=== PATIENT | male | born 1970 | race Caucasian/White ===

== ENCOUNTER 2017-09-05 13:40 | Inpatient (IN) ==
[2017-09-05] MEDS ORDERED: IOPAMIDOL 100 ML BOTTLE IV ONE (13:41)
[2017-09-05] MEDS ORDERED: 0.9 % SODIUM CHLORIDE 1,000 ML IV SCH (14:15)
[2017-09-05] MEDS ORDERED: VANCOMYCIN PER PHARMACY IV ONE (14:26)
[2017-09-05 14:59] LABS: Basophils # (Auto) 0 K/mcL (0.0-0.3); Basophils % (Auto) 0.2 % (0.0-2.0); Eosinophils # (Auto) 0.1 K/mcL (0.0-0.7); Eosinophils % (Auto) 0.3 % (0.0-7.0); Granulocytes % (Auto) 89.8 % (38.0-78.0); Lymphocytes % (Auto) 4.3 % (15.5-49.0); Mean Cell Volume 90.6 fL (80.0-100.0); Mean Corpuscular HGB Conc 33.1 g/dL (31.0-36.0); Mean Corpuscular Hemoglobin 29.9 pg (26.0-34.0); Monocytes # (Auto) 1.2 K/mcL (0.1-0.9); Monocytes % (Auto) 5.4 % (1.0-12.0); Platelet Count 388 K/mcL (140-440); Red Cell Distribution Width 14.4 % (11.5-14.5)
[2017-09-05] MEDS ORDERED: VANCOMYCIN 1,500 MG in 0.9 % SODIUM CHLORIDE 500 ML IV ONE (15:00)
[2017-09-05 15:17] LABS: ALT/SGPT 18 U/l (0-40); Albumin 3.4 gm/dL (3.2-5.2); Albumin/Globulin Ratio 0.8 (1.0-2.3); Alkaline Phosphatase 76 U/L (39-117); Blood Urea Nitrogen 15 mg/dl (6-20)
[2017-09-05] MEDS ORDERED: INSULIN REGULAR, HUMAN 1 UNIT/0.01 ML UNIT SQ ONE (15:45)
--- NOTE | 2017-09-05 15:49 | Emergency Department Note ---
Skin/Abscess/FB HPI - General Chief complaint: Skin/Abscess/Foreign Body Stated complaint: Diabetic foot ulcer Time Seen by Provider: 09/05/17 13:44 Source: patient Mode of arrival: wheelchair - History of Present Illness HPI Narrative: 47-year-old male presents with decubitus ulcer infection to the left foot. He was sent over from Dr. Misbah Duncan's office. States he has been dealing with this foot wound for about 6 months and has been seen Dr. Duncan. However the last 1-2 months it became infected. He has been on outpatient oral antibiotic therapy without improvement. Over the last week or so he has had chills. Unknown fever as he is not taking his temperature. States Dr. Duncan was gone for a little bit so he was seen wound care and at that time it started getting worse. States he did just have the decubitus ulcer to the palmar surface of his foot but then over the last couple weeks the lateral surface started getting red, hot, and very swollen. It then started draining and they opened it up. States that she is getting worse, not better. Saw Dr. Duncan earlier today and he sent him to the ER for further evaluation. States the pain is present but is manageable. Does not have any pain anywhere else. No recent cough or cold symptoms. Associated symptoms: Reports: chills. Denies: nausea, vomiting, cough, shortness of breath - Related Data Home Medications Medication Instructions Recorded Confirmed aspirin 81 mg tablet,delayed 81 mg PO QDAY tab 01/09/15 07/21/17 release blood-glucose meter kit See Dose Instructions .ROUTE 01/09/15 07/21/17 .MEDSUPPLY multivitamin tablet 1 tab PO QDAY tab 01/09/15 07/21/17 isosorbide mononitrate ER 30 mg 30 mg PO QDAY 90 Days #90 tab 02/02/16 07/21/17 tablet,extended release 24 hr nitroglycerin 0.4 mg sublingual 0.4 mg SUBLINGUAL Q5-15M PRN 02/02/16 07/21/17 tablet Doxycycline Hyclate [Vibramycin] 100 mg PO BID 09/05/17 09/05/17 Previous Rx's Medication Instructions Recorded pen needle, diabetic 31 gauge x See Dose Instructions .ROUTE 04/22/1510/05" .MEDSUPPLY #100 each lancets 30 gauge See Dose Instructions .ROUTE 09/15/15 .MEDSUPPLY #300 each blood sugar diagnostic strips See Label Instructions .ROUTE 12/15/15 .COMPLEX #300 each atorvastatin 80 mg tablet 80 mg PO QDAY #90 tab 08/27/16 diabetic shoes #2 each 08/27/16 furosemide 20 mg tablet 20 mg PO QDAY #90 tab 08/27/16 metformin ER 500 mg 24 hr 1,000 mg PO .COMPLEX #270 tab 08/27/16 tablet,extended release metoprolol succinate ER 100 mg 100 mg PO BID #180 tab 08/27/16 tablet,extended release 24 hr spironolactone 25 mg tablet 25 mg PO QDAY #90 tab 08/27/16 valsartan 160 mg tablet 160 mg PO QDAY #90 tab 08/27/16 insulin glargine (U-300) 300 180 unit SUB-Q QDAY 90 Days #54 ml 12/03/16 unit/mL (1.5 mL) subcutaneous pen Allergies Allergy/AdvReac Type Severity Reaction Status Date / Time No Known Drug Allergies Allergy Verified 09/05/17 13:47 Review of Systems All systems ED: reviewed and negative except as stated. Past Medical History - Past Medical History [facility] Narrative: Medical History (Last Reviewed 07/21/17 @ 14:17 by Jas Stein PA-C) Metabolic Syndrome X (Chronic) Ventricular fibrillation (Chronic) Cardiac arrest (Chronic) Weight gain (Chronic 05/17/13) Tobacco abuse (Chronic 01/26/13) Acute thrombus of left ventricle (Resolved) Pleural effusion (Resolved) Peripheral neuropathy (Chronic) Obesity (Chronic) Mitral regurgitation (Chronic) Metabolic syndrome (Chronic) Hypertension (Chronic) Hyperlipidemia (Chronic 02/11/13) Leg edema (Chronic 05/17/13) Diabetes mellitus (Chronic) Dental caries (Chronic 01/23/13) Congestive heart failure (CHF) (Resolved 04/08/14) Cardiomyopathy (Chronic) Cardiomegaly (Chronic) Alcohol abuse (Chronic) Cardiac arrest with ventricular fibrillation (Chronic 01/25/16) Past Surgical History (Last Reviewed 07/21/17 @ 14:17 by Jas Stein PA-C) History of appendectomy (Resolved) S/P foot surgery, right (Chronic) Cardiac defibrillator in place (Resolved) History of left heart catheterization (Resolved) Surgical history ED: Reports: appendectomy, other (Foot surgery, defibrillator, cardiac catheterization) - Social History smoking status: Never smoker Alcohol use: Reports: Rarely Drug use: Reports: none Physical Exam Limitations: no limitations General appearance: alert, in no apparent distress Head: atraumatic, normocephalic, normal inspection Eye: Present: normal appearance. Absent: conjunctival injection ENT: mucous membranes moist Chest: Present: normal inspection, symmetric chest wall rise Respiratory: Present: normal lung sounds bilaterally. Absent: respiratory distress, wheezes, accessory muscle use Cardiovascular: Present: regular rate, normal heart sounds Extremities: Present: normal capillary refill, other (Diffuse edema to the left foot). Absent: normal inspection (The left foot arrived with bandage and intact. The bandage was removed. He does have a yellowish thin purulent drainage draining from the lateral surface midfoot. There is a 8 cm area of redness that is warm. It is circumferential. The lateral surface of the left foot has a stage III decubitus ulcer in the palmar surface of the foot is stage II. There is about a 1 cm circumferential area of dark tissue that appears to be necrosis.) Neurological: Present: alert, oriented X3, normal gait Psychiatric: Present: normal affect, normal mood Skin: Present: warm, dry, erythema (The see extremity assessment regarding left foot.) Course Course Narrative: Patient does have an elevated white blood cell count of 22 with a shift. His glucose is also 375. Due to failed outpatient antibiotic therapy and the current state of the wound infection failure greatly benefit from inpatient hospitalization for wound care and IV antibiotic therapy. I did speak with Dr. Duncan who will consult on the patient. At 1540 also spoke with the hospitalist, Dr. Carrera who agrees to admit the patient. Patient updated and is agreeable. Vital Signs Temperature 98.2 F 09/05/17 13:41 Pulse Rate 93 H 09/05/17 13:41 Respiratory Rate 16 09/05/17 13:41 Blood Pressure 144/90 09/05/17 13:41 Pulse Oximetry (%) 97 09/05/17 13:41 Temperature 98.2 F 09/05/17 13:41 Pulse Rate 92 H 09/05/17 15:46 Respiratory Rate 16 09/05/17 13:41 Blood Pressure 153/88 09/05/17 15:46 Pulse Oximetry (%) 96 09/05/17 15:46 Skin/Abscess/Foreign Body - Lab Data Lab results reviewed: Yes I reviewed the patient's lab results. Result diagrams: 09/05/17 14:20 09/05/17 14:20 Lab Results 09/05/17 09/05/17 09/05/17 Range/Units 14:20 14:20 14:20 WBC 22.4 H (4.5-11.0) K/mcL RBC 4.60 (4.50-5.90) M/mcL Hgb 13.8 (13.5-16.5) g/dL Hct 41.7 (41.0-55.0) % MCV 90.6 (80.0-100.0) fL MCH 29.9 (26.0-34.0) pg MCHC 33.1 (31.0-36.0) g/dL RDW 14.4 (11.5-14.5) % Plt Count 388 (140-440) K/mcL MPV 7.3 L (7.4-10.4) fL Gran % 89.8 H (38.0-78.0) % Lymph % (Auto) 4.3 L (15.5-49.0) % Baxter % (Auto) 5.4 (1.0-12.0) % Eos % (Auto) 0.3 (0.0-7.0) % Baso % (Auto) 0.2 (0.0-2.0) % Gran # 20.1 H (1.8-8.0) K/mcL Lymph # (Auto) 1.0 L (1.5-4.8) K/mcL Baxter # (Auto) 1.2 H (0.1-0.9) K/mcL Eos # (Auto) 0.1 (0.0-0.7) K/mcL Baso # (Auto) 0 (0.0-0.3) K/mcL VBG Lactic Acid 1.8 (0.5-2.2) mmol/L Sodium 129 L (133-145) mmol/L Potassium 4.2 (3.3-5.1) mmol/L Chloride 90 L (96-108) mmol/L Carbon Dioxide 25 (22-30) mmol/L Anion Gap 14.0 (8-16) BUN 15 (6-20) mg/dl Creatinine 1.0 (0.7-1.2) mg/dl GFR Calculation 88 Glucose 375 H (70-105) mg/dL Calcium 9.5 (8.6-10.4) mg/dl Total Bilirubin 0.6 (0.0-1.0) mg/dL AST 12 (0-37) U/l ALT 18 (0-40) U/l Alkaline Phosphatase 76 (39-117) U/L Total Protein 7.8 (5.9-8.4) gm/dL Albumin 3.4 (3.2-5.2) gm/dL Globulin 4.4 H (2.2-3.7) gm/dL Albumin/Globulin Ratio 0.8 L (1.0-2.3) - Radiology Data Radiology results reviewed: Yes I reviewed the patient's radiology results. Disposition Pt seen by B[employer]OM [employer]OP DRIVER/PA only: No Clinical Impression: Decubitus ulcer, infected, Cellulitis of left foot, Diabetes Disposition: Xfer As Inpt ([facility]) Condition: Fair Referrals: Meir Elam MD [Primary Care Provider] - Misbah Duncan DPM [Physician] - Time of Disposition: 15:50
--- NOTE | 2017-09-05 16:23 | Internal Med History&Physical ---
Medical - H&P: HPI Patient information: Note initiated : 09/05/17 at 4:14 pm Service Date, if different from initiated Date: [] Patient: Faustino Muir 47 y/o M admitted on for Diabetic foot ulcer. Chief Complaint: [] History of present illness: Mr. Muir is a 47 year old Male with history of diabetes, hypertension hyperlipidemia presents to the emergency room today after being evaluated by the mortgage processing clerk who sent the patient here for evaluation for infected diabetic wound. According to the patient he developed an ulcer on the left foot approximately 5-6 weeks ago, the patient has been under the care of Dr. Duncan since then. He was treated with doxycycline once and the infection got better. The ulcer was debrided by Dr. Meyer a couple weeks ago. The patient since has developed swelling erythema and redness in the left foot. He was seen by Dr. Duncan last Tuesday and it was noted that he possibly had an abscess. He had an I&D done in the office. He was given some antibiotics. The patient was again seen today and it was noted that his infection was getting worse he was therefore sent to the emergency room for further evaluation. The patient admits to have some pain in the left foot throbbing nonradiating worse with activity. It is better with rest. The patient also notes that he may have had some fever and chills last week but none present. Besides this the patient has no other complaints. A 10 point ROS was done and is negative except above. In the emergency room the patient is afebrile, he has stable vital signs. The patient has leukocytosis with a WBC count of 22. Left lites show sodium of 129 blood glucose is also elevated at 375. The patient is therefore being admitted to the hospital for further management as he has possible sepsis, Dr Munoz will be planning surgery in AM, CT pending. All systems: reviewed and no additional remarkable complaints except as stated ( As per HPI) Medical - H&P: PM Medical history: Medical History (Last Reviewed 07/21/17 @ 14:17 by Jas Stein PA-C) Metabolic Syndrome X (Chronic) Ventricular fibrillation (Chronic) Cardiac arrest (Chronic) Weight gain (Chronic 05/17/13) Tobacco abuse (Chronic 01/26/13) Acute thrombus of left ventricle (Resolved) Pleural effusion (Resolved) Peripheral neuropathy (Chronic) Obesity (Chronic) Mitral regurgitation (Chronic) Metabolic syndrome (Chronic) Hypertension (Chronic) Hyperlipidemia (Chronic 02/11/13) Leg edema (Chronic 05/17/13) Diabetes mellitus (Chronic) Dental caries (Chronic 01/23/13) Congestive heart failure (CHF) (Resolved 04/08/14) Cardiomyopathy (Chronic) Cardiomegaly (Chronic) Alcohol abuse (Chronic) Cardiac arrest with ventricular fibrillation (Chronic 01/25/16) Surgical history: Past Surgical History (Last Reviewed 07/21/17 @ 14:17 by Jas Stein PA-C) History of appendectomy (Resolved) S/P foot surgery, right (Chronic) Cardiac defibrillator in place (Resolved) History of left heart catheterization (Resolved) Pertinent family history: Family History (Last Reviewed 07/21/17 @ 14:17 by Jas Stein PA-C) Father Type 2 diabetes mellitus Arthritis Hypertension Mother Obesity Medical - H&P: Meds Home Medications Medication Instructions Recorded Confirmed Type aspirin 81 mg tablet,delayed 81 mg PO QDAY tab 01/09/15 07/21/17 History release blood-glucose meter kit See Dose Instructions .ROUTE 01/09/15 07/21/17 History .MEDSUPPLY multivitamin tablet 1 tab PO QDAY tab 01/09/15 07/21/17 History pen needle, diabetic 31 gauge x See Dose Instructions .ROUTE 04/22/15 07/21/17 Rx /16" .MEDSUPPLY #100 each lancets 30 gauge See Dose Instructions .ROUTE 09/15/15 07/21/17 Rx .MEDSUPPLY #300 each blood sugar diagnostic strips See Label Instructions .ROUTE 12/15/15 07/21/17 Rx .COMPLEX #300 each isosorbide mononitrate ER 30 mg 30 mg PO QDAY 90 Days #90 tab 02/02/16 07/21/17 History tablet,extended release 24 hr nitroglycerin 0.4 mg sublingual 0.4 mg SUBLINGUAL Q5-15M PRN 02/02/16 07/21/17 History tablet atorvastatin 80 mg tablet 80 mg PO QDAY #90 tab 08/27/16 07/21/17 Rx diabetic shoes #2 each 08/27/16 07/21/17 Rx furosemide 20 mg tablet 20 mg PO QDAY #90 tab 08/27/16 07/21/17 Rx metformin ER 500 mg 24 hr 1,000 mg PO .COMPLEX #270 tab 08/27/16 07/21/17 Rx tablet,extended release metoprolol succinate ER 100 mg 100 mg PO BID #180 tab 08/27/16 07/21/17 Rx tablet,extended release 24 hr spironolactone 25 mg tablet 25 mg PO QDAY #90 tab 08/27/16 07/21/17 Rx valsartan 160 mg tablet 160 mg PO QDAY #90 tab 08/27/16 07/21/17 Rx insulin glargine (U-300) 300 180 unit SUB-Q QDAY 90 Days #54 ml 12/03/16 Rx unit/mL (1.5 mL) subcutaneous pen Doxycycline Hyclate [Vibramycin] 100 mg PO BID 09/05/17 09/05/17 History Allergies Allergy/AdvReac Type Severity Reaction Status Date / Time No Known Drug Allergies Allergy Verified 09/05/17 13:47 Medical - H&P: Exam - Constitutional Vitals: Temp Pulse Resp BP Pulse Ox 98.2 F 92 H 16 153/88 96 09/05/17 13:41 09/05/17 15:46 09/05/17 13:41 09/05/17 15:46 09/05/17 15:46 Exam: GENERAL: The patient is a well-developed, well-nourished in no apparent distress. Is alert and oriented x3. VITAL SIGNS: Reviewed and as noted elsewhere. HEENT: Head is normocephalic and atraumatic. Extraocular muscles are intact. Pupils are equal, round, and reactive to light. Nares appeared normal. Mouth appears any without lesions. Mucous membranes are moist. NECK: Normal to inspection, Supple, No lymphadenopathy or thyromegaly. LUNGS: Air entry equal on both sides, no wheezing, crackles or rhonchi noted. No accessory muscles of respiration HEART: Regular rate and rhythm normal, S1 and S2 heard, no Gallop, S3 or Rub Noted, No Gross murmur heard. ABDOMEN: Soft, nontender, and nondistended. Positive bowel sounds. No hepatosplenomegaly was noted. EXTREMITIES: No cyanosis, clubbing, rash, lesions or edema. Left foot: Patient has one by one ulcer on the left foot at its base, the patient however has significant erythema and edema on the left foot there is a irregular ulcer approximately 5 into 6 cm in size on the ventral aspect of the left foot. Skin surrounding the ulcer has few areas of necrosis, but is active pus oozing from the ulcer. The erythema extends up to the ankle. NEUROLOGIC: Cranial nerves II through XII are grossly intact. Motor and Sensory System Grossly Intact PSYCHIATRIC: Normal affect, Normal Mood. Appropriate Behavior. SKIN: No ulceration or wounds noted, No jaundice, No rash noted. Medical - H&P: Reslt - Labs CBC & Chem 7: 09/05/17 14:20 09/05/17 14:20 Labs: Short CBC 09/05/17 Range/Units 14:20 WBC 22.4 H (4.5-11.0) K/mcL Hgb 13.8 (13.5-16.5) g/dL Hct 41.7 (41.0-55.0) % Plt Count 388 (140-440) K/mcL BMP 09/05/17 14:20 Sodium 129 L Potassium 4.2 Chloride 90 L Carbon Dioxide 25 BUN 15 Creatinine 1.0 Glucose 375 H Calcium 9.5 Liver Function 09/05/17 Range/Units 14:20 Total Bilirubin 0.6 (0.0-1.0) mg/dL AST 12 (0-37) U/l ALT 18 (0-40) U/l Alkaline Phosphatase 76 (39-117) U/L Albumin 3.4 (3.2-5.2) gm/dL Medical - H&P: A/P - Narrative A/P Narrative: A/P Sepsis Necrotizing Diabetic Foot infection with Cellutlitis Possible osteo-myelitis Diabetes uncontrolled Hypertension Hyperlipidemia History of cardiac arrest status post AICD placement Coronary artery disease Pseudohyponatremia [low sodium secondary to glucose which is elevated] [facility] IV antibiotics with vancomycin and Zosyn for now. Get blood cultures Await CT scan of the left foot ordered in the emergency room. N.p.o. midnight for possible procedure tomorrow. Plan of care reviewed with Dr. Duncan Insulin to control blood sugar. Lantus 10 units at bedtime started low-dose sliding scale insulin. Resume home medications once verified, DVT prophylaxis with heparin subcu Carb consistent diet Patient is full code I reviewed the AICD made by [employer] online to see if it is compatible with MRI it can be compatible with a 1.5 Ellen MRI but not with the MRI we have in this facility which is a 3 Ellen machine. Social History - Social History household members: spouse housing: house lives independently: Yes marital status: education level: high school service: No occupational status: employed - Tobacco smoking status: Never smoker - Alcohol alcohol intake frequency: a few times a week - Substance use substance use type: does not use
--- NOTE | 2017-09-05 16:49 | Cat Scan Report ---
CLINICAL INFORMATION: Infection and pain COMPARISON: Plain films from 08/19/2017 TECHNIQUE: 0.625 mm helical slices were obtained through the left foot and ankle. Following reconstruction, 2.5 mm sagittal, coronal and axial reformatted were processed and reviewed at soft tissue and bone windows. FINDINGS: A nonunified old oblique fracture through the proximal fifth metatarsal diaphysis is again noted. A 16 mm region of irregular osseous resorption at the fracture site is likely a focus of osteomyelitis. There is moderate healing callus is partially bridging the bone fragments. There is displacement of the distal fragment 5 mm lateral and superior with respect to the proximal fragment. Surrounding the fracture, there is moderate local fasciitis and cellulitis with overlying lateral cutaneous ulcer. Small amount of gas is seen in the subdermal soft tissues - either atmospheric related to gas producing infection. Severe hallux valgus metatarsus abductus and also hammertoe deformities in the first through fifth digits seen as before. There are cortical step-off in the distal aspect of the second and third middle phalanges which are likely subtle hairline fractures. Moderate effusion is present within the ankle with a mortise small spur projecting from the dorsal cortex of the talar neck which may predispose to impingement on dorsiflexion of the ankle. There is moderate inflammatory changes in the deep muscle and fascial planes in the ankle periarticular region inferiorly and medially. Tendons and sheaths traversing this region appear to be secondarily inflamed. IMPRESSION: 1. Nonunified old oblique displaced fracture the proximal fifth metatarsal diaphysis. A 16 mm irregular region of resorption about the fracture line is suspicious for complicating osteomyelitis. There is moderate inflammation in the adjacent deep fascia with cellulitis. 2. Moderate size effusion in the ankle mortise with evidence of deep fasciitis - measuring the medial periarticular region of the ankle. 3. Severe hallux valgus, metatarsus abductus and hammertoe deformities first through fifth digits. Interpreted and Authenticated by: Uriah Matthews 09/05/17
[2017-09-05] MEDS ORDERED: DEXTROSE 50% 50 ML VIAL IV PRN (17:19)
[2017-09-05] MEDS ORDERED: oxyCODONE HCL 5 MG TABLET PO PRN (17:19)
[2017-09-05] MEDS ORDERED: HYDROmorphone 2 MG/ML VIAL IV PRN (17:19)
[2017-09-05] MEDS ORDERED: DEXTROSE 31 GM ORAL.SUSP PO PRN (17:19)
[2017-09-05] MEDS ORDERED: 0.9 % SODIUM CHLORIDE 1,000 ML IV ONE (17:19)
[2017-09-05] MEDS ORDERED: VANCOMYCIN PER PHARMACY IV SCH (17:19)
[2017-09-05] MEDS ORDERED: ALBUTEROL SULFATE 2.5 MG/3 ML NEBULIZER NEB PRN (17:19)
[2017-09-05] MEDS ORDERED: ACETAMINOPHEN 325 MG TABLET PO PRN (17:19)
[2017-09-05] MEDS ORDERED: ONDANSETRON 4 MG/2 ML VIAL IV PRN (17:19)
[2017-09-05] MEDS: PIPERACILLIN SODIUM/TAZOBACTAM 3.375 GM in DEXTROSE 5% IN WATER 50 ML IV SCH ×2 (17:50→23:50)
[2017-09-05] MEDS: INSULIN LISPRO 1 UNIT/0.01 ML UNIT SQ SCH ×2 (17:58→20:23)
[2017-09-05] MEDS: FAMOTIDINE 20 MG TABLET PO SCH (20:22)
[2017-09-05] MEDS: ATORVASTATIN 20 MG TABLET PO SCH (20:22)
[2017-09-05] MEDS: HEPARIN 5,000 UNIT/ML VIAL SQ SCH (20:22)
[2017-09-05] MEDS: 0.9 % SODIUM CHLORIDE 10 ML SYRINGE IV SCH (20:24)
[2017-09-05] MEDS ORDERED: INSULIN GLARGINE, HUMAN 1 UNIT/0.01 ML SQ SCH ×2 (21:00)
[2017-09-05] MEDS: 0.9 % SODIUM CHLORIDE 1,000 ML IV SCH (22:03)
[2017-09-06] MEDS: VANCOMYCIN 1,500 MG in 0.9 % SODIUM CHLORIDE 500 ML IV SCH ×3 (01:12→20:55)
[2017-09-06] MEDS: 0.9 % SODIUM CHLORIDE 10 ML SYRINGE IV SCH ×3 (05:55→20:52)
[2017-09-06] MEDS: PIPERACILLIN SODIUM/TAZOBACTAM 3.375 GM in DEXTROSE 5% IN WATER 50 ML IV SCH ×4 (05:55→23:16)
[2017-09-06 06:43] LABS: Basophils # (Auto) 0 K/mcL (0.0-0.3); Basophils % (Auto) 0.2 % (0.0-2.0); Eosinophils # (Auto) 0.7 K/mcL (0.0-0.7); Eosinophils % (Auto) 4.3 % (0.0-7.0); Granulocytes % (Auto) 79.6 % (38.0-78.0); Lymphocytes # (Auto) 1.5 K/mcL (1.5-4.8); Lymphocytes % (Auto) 9.3 % (15.5-49.0); Mean Cell Volume 90.1 fL (80.0-100.0); Mean Corpuscular HGB Conc 34.2 g/dL (31.0-36.0); Mean Corpuscular Hemoglobin 30.8 pg (26.0-34.0); Monocytes % (Auto) 6.6 % (1.0-12.0); Platelet Count 318 K/mcL (140-440); RBC 3.83 M/mcL (4.50-5.90); Red Cell Distribution Width 14.5 % (11.5-14.5)
[2017-09-06] MEDS: INSULIN LISPRO 1 UNIT/0.01 ML UNIT SQ SCH ×6 (07:10→23:16)
[2017-09-06 07:32] LABS: ALT/SGPT 16 U/l (0-40); Albumin 2.6 gm/dL (3.2-5.2); Albumin/Globulin Ratio 0.7 (1.0-2.3); Alkaline Phosphatase 68 U/L (39-117); Bilirubin,Direct < 0.2 mg/dL (0.0-0.3); Blood Urea Nitrogen 10 mg/dl (6-20); Gamma Glutamyl Transpeptidase 17 U/L (8-61); Uric Acid 2.5 mg/dL (2.5-8.0)
[2017-09-06] MEDS ORDERED: POTASSIUM CHLORIDE 20 MEQ PACKET PO ONE (07:37)
[2017-09-06] MEDS ORDERED: VALSARTAN 160 MG TABLET PO SCH (09:00)
[2017-09-06] MEDS ORDERED: SPIRONOLACTONE 25 MG TABLET PO SCH (09:00)
[2017-09-06] MEDS: METOPROLOL SUCCINATE 50 MG TAB.XL.24H PO SCH ×2 (09:35→20:51)
[2017-09-06] MEDS: ISOSORBIDE MONONITRATE 30 MG TAB.XL.24H PO SCH (09:35)
[2017-09-06] MEDS: ASPIRIN 81 MG TAB.CHEW PO SCH (09:36)
[2017-09-06] MEDS: HEPARIN 5,000 UNIT/ML VIAL SQ SCH ×2 (09:36→20:51)
[2017-09-06] MEDS: FAMOTIDINE 20 MG TABLET PO SCH ×2 (09:36→20:51)
--- NOTE | 2017-09-06 10:11 | Orthopedic Consult Note ---
History of Present Illness - [facility] Patient information: Note initiated : 09/06/17 at 9:43 am Service Date, if different from initiated Date: [] Patient: Faustino Muir 47 y/o M admitted on 09/05/17 for I&D and Amputation of 5th Metatarsal. Chief Complaint: [] Consult date: 09/06/17 Consult reason: other (infection of left foot) History of present illness: Patient has has a long standing history of ulcerations and fractures of the left foot. He presented into clinic with an open wound on the bottom of the left foot which probed to bone. The bone also is chronically fractured. He does not have feeling in the foot unless there is abnormally large pressure or pain. He has developed a very red and swollen foot with increasing pain. The redness has persisted despite oral antibiotics. Review of Systems Constitutional: as per [facility] Past History Past medical history: METABOLIC SYNDROME VENTRICULAR FIBRILLATION NEW RESOLVED CARDIAC ARREST 01/23 DUE TO VENTRICULAR FIBRILLATION WEIGHT GAIN TOBACCO ABUSE ACUTE THROMBUS OF LEFT VENTRICLE PLEURAL EFFUSION DR. [facility] SMALL RIGHT OBESITY MITRAL REGURGITATION METABOLIC SYNDROME Past surgical history: Defibrillator Right Foot Surgery Appendectomy Past family history: Cancer No History Diabetes No History Heart Disease No History Hypertension No History Kidney Disease No History Lung Disease No History Stroke No History Thyroid Problems No History Past social history: Current every day smoker - Chewing Tobacco, Smokeless tobacco Medications and Allergies Home Medications Medication Instructions Recorded Confirmed Type aspirin 81 mg tablet,delayed 81 mg PO QDAY tab 01/09/15 09/05/17 History release blood-glucose meter kit See Dose Instructions .ROUTE 01/09/15 09/05/17 History .MEDSUPPLY multivitamin tablet 1 tab PO QDAY tab 01/09/15 09/05/17 History blood sugar diagnostic strips See Label Instructions .ROUTE 12/15/15 09/05/17 Rx .COMPLEX #300 each isosorbide mononitrate ER 30 mg 30 mg PO QDAY 90 Days #90 tab 02/02/16 09/05/17 History tablet,extended release 24 hr nitroglycerin 0.4 mg sublingual 0.4 mg SUBLINGUAL Q5-15M PRN 02/02/16 09/05/17 History tablet atorvastatin 80 mg tablet 80 mg PO QDAY #90 tab 08/27/16 09/05/17 Rx furosemide 20 mg tablet 20 mg PO QDAY #90 tab 08/27/16 09/05/17 Rx metoprolol succinate ER 100 mg 100 mg PO BID #180 tab 08/27/16 09/05/17 Rx tablet,extended release 24 hr spironolactone 25 mg tablet 25 mg PO QDAY #90 tab 08/27/16 09/05/17 Rx valsartan 160 mg tablet 160 mg PO QDAY #90 tab 08/27/16 09/05/17 Rx Doxycycline Hyclate [Vibramycin] 100 mg PO BID 09/05/17 09/05/17 History Insulin Glargine,Hum.rec.anlog 180 unit SUB-Q DAILY 09/05/17 09/05/17 History [Touyocasta Solostar] Lancets [Advanced Travel Lancets] 0 each .ROUTE .MEDSUPPLY 09/05/17 09/05/17 History Pen Needle, Diabetic [Bd 0 dose .ROUTE .MEDSUPPLY 09/05/17 09/05/17 History Ultra-Fine Pen Needle] diabetic shoes 1 each MISC DAILY 09/05/17 09/05/17 History metFORMIN HCL [Metformin HCl ER] 1,000 mg PO DAILY 09/05/17 09/05/17 History metFORMIN HCL [Metformin HCl ER] 500 mg PO HS 09/05/17 09/05/17 History Allergies Allergy/AdvReac Type Severity Reaction Status Date / Time No Known Drug Allergies Allergy Verified 09/05/17 13:47 Physical Examination - Ankle & Foot left Foot appearance: other (Integumentary (Hair, Skin) Wound #1 Left, Plantar Foot is an acute Stage 2 Pressure Injury Pressure Ulcer and has received a status of Not Healed. Bone is exposed. No tunneling has been noted. No sinus tract has been noted. There is a copious amount of sero-sanguineous drainage noted which has no odor. The patient reports a wound pain of level 6/10. The wound margin is undefined. Wound bed has 1-25% epithelialization, 1-25% slough, 51-75% pale shah, pink, spongy granulation; no eschar present. The wound is improving. The periwound skin exhibited: Edema, Scarring, Moist, Maceration, Erythema. The temperature of the periwound skin is Warm. Periwound skin presents with s/s of infection. Confirmation Description & Treatment Plan is: Signs & Symptoms Present. Wounds communicate: dorsal and plantar) Assessment and Plan (1) Cellulitis of left foot Status: Acute Priority: High Comment: Removal of osteomyelitis with I&D of left foot of critical importance. Plan is: Amputation of left fifth metatarsal with incision and drainage left foot
[2017-09-06] MEDS: 0.9 % SODIUM CHLORIDE 1,000 ML IV SCH ×2 (10:31→13:33)
[2017-09-06] MEDS ORDERED: POTASSIUM CHLORIDE 40 MEQ in DEXTROSE 5% IN WATER 500 ML IV ONE (10:44)
--- NOTE | 2017-09-06 10:44 | Internal Med Progress Note ---
Medical - PN: Subj Patient information: Note initiated : 09/06/17 at 10:41 am Service Date, if different from initiated Date: [] Patient: Faustino Muir a 47 y/o M admitted on 09/05/17 for I&D and Amputation of 5th Metatarsal. Chief Complaint: [] Interval history: Mr. Muir is a 47 year old Male with history of diabetes, hypertension hyperlipidemia presents to the emergency room today after being evaluated by the petroleum sampler who sent the patient here for evaluation for infected diabetic wound. According to the patient he developed an ulcer on the left foot approximately 5-6 weeks ago, the patient has been under the care of Dr. Duncan since then. He was treated with doxycycline once and the infection got better. The ulcer was debrided by Dr. Meyer a couple weeks ago. The patient since has developed swelling erythema and redness in the left foot. He was seen by Dr. Duncan last Tuesday and it was noted that he possibly had an abscess. He had an I&D done in the office. He was given some antibiotics. The patient was again seen today and it was noted that his infection was getting worse he was therefore sent to the emergency room for further evaluation. The patient admits to have some pain in the left foot throbbing nonradiating worse with activity. It is better with rest. The patient also notes that he may have had some fever and chills last week but none present. Besides this the patient has no other complaints. A 10 point ROS was done and is negative except above. In the emergency room the patient is afebrile, he has stable vital signs. The patient has leukocytosis with a WBC count of 22. Left lites show sodium of 129 blood glucose is also elevated at 375. The patient is therefore being admitted to the hospital for further management as he has possible sepsis, Dr Munoz will be planning surgery in AM, CT pending. 09/06 She is seen and examined no acute overnight events, glucose values now well controlled, patient has no acute pain. Blood cultures came back positive as gram-positive cocci in pairs and chains. Sensitivity pending. Patient numbers with no antibiotics WBC trending down. Dr. Duncan plans to take the patient to the OR this afternoon. Pertinent ROS: Denies headache, dizziness Denies chest pain, palpitations Denies cough or shortness of breath Denies abdominal pain, nausea or vomiting. - Constitutional Vitals: Vital Signs Temp Pulse Resp BP Pulse Ox 98.3 F 84 16 155/74 95 09/06/17 07:13 09/06/17 04:00 09/06/17 07:13 09/06/17 07:13 09/06/17 07:13 Period Temp Pulse Resp BP Sys/Ramírez Pulse Ox Last 24 Hr 98.1 F-100.1 F 80-93 16-20 124-160/74-93 94-98 Intake and Output 09/05/17 09/06/17 09/06/17 21:59 05:59 13:59 Intake Total 1350 / 1350 750 / 750 Output Total 1650 / 1650 1050 / 1050 Balance 1350 / 1350 -900 / -900 -1050 / -1050 Weight 247 lb 8 oz Intake & Output: Intake & Output 09/05/17 09/06/17 09/06/17 21:59 05:59 13:59 Intake Total 1350 / 1350 750 / 750 Output Total 1650 / 1650 1050 / 1050 Balance 1350 / 1350 -900 / -900 -1050 / -1050 Weight 247 lb 8 oz Intake: IV 550 / 550 550 / 550 Zosyn 3.375 gm In Dextrose 5% 50 / 50 50 / 50 in Water 50 ml @ 100 mls/hr IV Q6H [facility] Rx#:[id number] Vancomycin 1,500 mg In Sodium 500 / 500 500 / 500 Chloride 0.9% 500 ml @ 333.3 mls/hr IV Q12H [facility]ARY Rx#: [id number] Oral 800 / 800 200 / 200 Output: Void Amount 1650 / 1650 1050 / 1050 Exam: Constitutional; Afebrile, cooperative, alert, not in distress. Eyes- No icterus, , No periorbital swelling Ears- Ext ear normal, hearing normal to conversation. Neck- Midline trachea, supple Respiratory system: Air Entry equal on both sides, No crackles or wheezing, no rhonchi. CVS- Rate rhythm regular, S1,S2 heard, no gallop, no rub. Abdomen- Soft nontender abdomen, no organomegaly, no tenderness, no guarding or rigidity, DIRECTOR PROPERTY- AOOx3, moving all extremities, no gross focal deficit noted. Medical - PN: Obj Da - Labs CBC & Chem 7: 09/06/17 04:14 09/06/17 04:14 Labs: Abnormal Lab Results 09/06/17 09/06/17 09/06/17 04:14 04:14 04:14 WBC 15.9 H RBC 3.83 L Hgb 11.8 L Hct 34.5 L MPV 7.2 L Gran % 79.6 H Lymph % (Auto) 9.3 L Gran # 12.6 H Lymph # (Auto) Mcnairy # (Auto) 1.0 H PT 15.3 H INR 1.2 H Sodium Chloride Glucose Lactate Dehydrogenase 285 H Albumin 2.6 L Globulin Albumin/Globulin Ratio 0.7 L 09/05/17 09/05/17 14:20 14:20 WBC 22.4 H RBC Hgb Hct MPV 7.3 L Gran % 89.8 H Lymph % (Auto) 4.3 L Gran # 20.1 H Lymph # (Auto) 1.0 L Mcnairy # (Auto) 1.2 H PT INR Sodium 129 L Chloride 90 L Glucose 375 H Lactate Dehydrogenase Albumin Globulin 4.4 H Albumin/Globulin Ratio 0.8 L Meds: Medications Acetaminophen (Tylenol) 650 mg PO Q6HP PRN PRN Reason: PAIN/FEVER > 101 Albuterol Sulfate (Ventolin) 2.5 mg NEB Q2HP PRN PRN Reason: Shortness Of Breath Aspirin (Aspirin) 81 mg PO DAILY [facility] Last Admin: 09/06/17 09:36 Dose: Not Given Atorvastatin Calcium (Lipitor) 80 mg PO HS [facility] Last Admin: 09/05/17 20:22 Dose: 80 mg Dextrose (Dextrose 50%) 0 ml IV UD PRN PRN Reason: Hypoglycemia Diagnostic Test (Pha) (Accu-Chek) 1 each FS ACHS [facility] Last Admin: 09/06/17 10:31 Dose: 1 each Famotidine (Pepcid) 20 mg PO BID [facility] Last Admin: 09/06/17 09:36 Dose: Not Given Glucose (Insta-Glucose) 15 gm PO PRN PRN PRN Reason: Hypoglycemia Heparin Sodium (Porcine) (Heparin) 5,000 unit SQ Q12 [facility] Last Admin: 09/06/17 09:36 Dose: Not Given Hydromorphone HCl (Dilaudid) 0.5 mg IV Q2HP PRN PRN Reason: PAIN LEVEL > 6 Piperacillin Sod/Tazobactam (Sod 3.375 gm/ Dextrose) 50 mls @ 100 mls/hr IV Q6H [facility] Last Admin: 09/06/17 05:55 Dose: 100 mls/hr Sodium Chloride (Sodium Chloride 0.9%) 1,000 mls @ 75 mls/hr IV .[id number] [facility] Stop: 09/07/17 09:18 Last Admin: 09/06/17 10:31 Dose: Not Given Vancomycin HCl 1,500 mg/ (Sodium Chloride) 500 mls @ 333.3 mls/hr IV Q12H [facility] Last Admin: 09/06/17 09:54 Dose: 250 mls/hr Insulin Glargine (Lantus) 50 unit SQ HS [facility] Last Admin: 09/05/17 20:23 Dose: 50 unit Insulin Human Lispro (Humalog) 0 unit SQ ACHS [facility] PRN Reason: Protocol Last Admin: 09/06/17 10:32 Dose: Not Given Isosorbide Mononitrate (Imdur) 30 mg PO QDAY [facility] Last Admin: 09/06/17 09:35 Dose: 30 mg Metoprolol Succinate (Toprol Xl) 100 mg PO BID [facility] Last Admin: 09/06/17 09:35 Dose: 100 mg Ondansetron HCl (Zofran) 4 mg IV Q6HP PRN PRN Reason: Nausea And Vomiting Oxycodone HCl (Roxicodone) 5 mg PO Q4HP PRN PRN Reason: PAIN LEVEL 3-6 Sodium Chloride (Saline Flush) 10 ml IV Q8 [facility] Last Admin: 09/06/17 05:55 Dose: Not Given Vancomycin HCl (Vancomycin Per Pharmacy) 1 order IV UD [facility] Medical - PN: A/P - Time Spent With Patient Total time spent is greater than 50% in coordination of care (as documented) at patient's floor/unit and/or counseling patient: - Narrative A/P Narrative: A/P Sepsis Necrotizing Diabetic Foot infection with Cellutlitis Possible osteo-myelitis Diabetes uncontrolled Hypertension Hyperlipidemia History of cardiac arrest status post AICD placement Coronary artery disease Pseudohyponatremia [low sodium secondary to glucose which is elevated] Gram-positive bacteremia Plan Continue IV fluids Continue IV antibiotics with vancomycin and Zosyn for now. Get blood cultures, gram-positive cocci noted and blood cultures. Sensitivity and isolation pending Foot CT reviewed, patient does have ostium mellitus, management per podiatry Blood sugar well controlled. Monitor glucose and adjust insulin once diet is resumed. Patient is on 180 units of Lantus at home. Resume home medications once verified, DVT prophylaxis with heparin subcu N.p.o. diet for surgery t Patient is full code Medical - PN: Qual - VTE Deep Vein Thrombosis/Pulmonary Embolism Present on Admission: No
[2017-09-06] MEDS ORDERED: DEXAMETHASONE 10 MG/ML VIAL ONE (11:50)
[2017-09-06] MEDS ORDERED: PROPOFOL 200 MG/20 ML VIAL IV ONE (11:50)
[2017-09-06] MEDS ORDERED: ePHEDrine 50 MG/ML AMPUL IV ONE (11:50)
[2017-09-06] MEDS ORDERED: MIDAZOLAM 2 MG/2 ML VIAL ONE (11:50)
[2017-09-06] MEDS ORDERED: ONDANSETRON 4 MG/2 ML VIAL ONE (11:50)
[2017-09-06] MEDS ORDERED: fentaNYL 100 MCG/2 ML VIAL IV ONE (11:50)
[2017-09-06] MEDS ORDERED: LIDOCAINE HCL/PF 100 MG/5 ML SYRINGE IV ONE (11:50)
[2017-09-06] MEDS ORDERED: NALOXONE HCL 0.4 MG/ML VIAL IV PRN (12:15)
[2017-09-06] MEDS ORDERED: fentaNYL 100 MCG/2 ML VIAL IV PRN (12:15)
[2017-09-06] MEDS ORDERED: FLUMAZENIL 0.1 MG/ML ML IV PRN (12:15)
[2017-09-06] MEDS ORDERED: IPRATROPIUM/ALBUTEROL 3 ML AMPUL.NEB NEB PRN (12:15)
[2017-09-06] MEDS ORDERED: ONDANSETRON 4 MG/2 ML VIAL IV PRN (12:15)
[2017-09-06] MEDS ORDERED: MEPERIDINE 25 MG/ML SYRINGE IV PRN (12:15)
[2017-09-06] MEDS ORDERED: BENZOCAINE/MENTHOL 1 LOZENGE PO PRN (12:15)
[2017-09-06] MEDS ORDERED: PROMETHAZINE 25 MG/ML VIAL IV PRN (12:15)
[2017-09-06] MEDS ORDERED: diphenhydrAMINE 50 MG/ML VIAL IV PRN (12:15)
[2017-09-06] MEDS ORDERED: LACTATED RINGERS 1,000 ML IV SCH (12:15)
[2017-09-06] MEDS ORDERED: BUPIVACAINE PF 0.5% 30 ML VIAL IJ ONE (12:19)
--- NOTE | 2017-09-06 13:03 | Brief Operative Note ---
Date of procedure: 09/06/17 Pre-op diagnosis: Osteomyelitis left foot fifth metatarsal Post-op diagnosis: same Procedure: Amutation left fifth metatarsal; incision and drainage left foot Grafts/Implants: No Anesthesia: GLMA Complications: none Surgeon: Misbah Duncan Estimated blood loss (cc): 150 Tourniquet Time (Minutes): 0 Specimens Removed/Pathology: other (bone left fifth metatrsal) Condition: stable Disposition: floor
--- NOTE | 2017-09-06 14:02 | Operative Note ---
DATE OF OPERATION: 09/06/2017 PREOPERATIVE DIAGNOSIS: Osteomyelitis, left foot fifth metatarsal. POSTOPERATIVE DIAGNOSIS: Osteomyelitis, left foot fifth metatarsal. PROCEDURE: Amputation left fifth metatarsal with incision and drainage, left foot. IMPLANTS: None. ANESTHESIA: GLMA. COMPLICATIONS: None. ESTIMATED BLOOD LOSS: 150 mL TOURNIQUET TIME: 0 minutes. SPECIMENS: Bone, left fifth metatarsal. CONDITION: Stable. DISPOSITION: To the floor. PROCEDURE IN DETAIL: The patient was brought to the operating room and placed on the operative table in supine position. Left lower extremity was scrubbed, prepped and draped in the usual aseptic manner. GLMA had been initiated. There was noted to be purulent drainage during manipulation of the left foot. This was expressed from the area and additional chlorhexidine applied. There was a full thickness incision overlying the left fifth metatarsal. There was a 3 cm circumferential in diameter necrotic region on the dorsal aspect overlying the fourth and fifth metatarsals central aspect. This was dissected with a 10 blade; full thickness skin incision was made to the bone. The fifth metatarsal was carefully dissected free from surrounding tissue. It was noted to be degenerative in the central portion consistent with fracture that was seen preoperatively. This was removed in total into two portions and sent for gross and culture and sensitivity. The area was then irrigated with 3000 mL bag of normal saline with bacitracin under pulse lavage. Additional debridement was performed. There was noted to be a necrotic area on the dorsal aspect of that overlying lesion. Closure was performed to the primary areas; also a Randolph drain. The suturing was performed with 3-0 Prolene in a simple and vertical interrupted fashion. Xeroform, 4 x 4 gauze, Kerlix, Palmer wrap and ABD for postoperative dressings. The patient tolerated the procedure and anesthesia well and was transferred to the floor for continued antibiotic therapy and management of this issue. [email or web address]:sonali Job ID: [id number] Doc ID: [id number] Misbah Duncan DPM
[2017-09-06] MEDS: ATORVASTATIN 20 MG TABLET PO SCH (20:50)
[2017-09-06] MEDS: INSULIN GLARGINE, HUMAN 1 UNIT/0.01 ML SQ SCH (20:52)
[2017-09-07] MEDS: 0.9 % SODIUM CHLORIDE 1,000 ML IV SCH (04:00)
[2017-09-07] MEDS: PIPERACILLIN SODIUM/TAZOBACTAM 3.375 GM in DEXTROSE 5% IN WATER 50 ML IV SCH ×4 (05:55→23:34)
[2017-09-07] MEDS: 0.9 % SODIUM CHLORIDE 10 ML SYRINGE IV SCH ×3 (05:56→21:04)
[2017-09-07 06:27] LABS: Basophils # (Auto) 0 K/mcL (0.0-0.3); Basophils % (Auto) 0.2 % (0.0-2.0); Eosinophils # (Auto) 0.4 K/mcL (0.0-0.7); Eosinophils % (Auto) 2.6 % (0.0-7.0); Granulocytes % (Auto) 87.3 % (38.0-78.0); Lymphocytes # (Auto) 0.8 K/mcL (1.5-4.8); Lymphocytes % (Auto) 4.7 % (15.5-49.0); Mean Cell Volume 90.7 fL (80.0-100.0); Mean Corpuscular HGB Conc 33.6 g/dL (31.0-36.0); Mean Corpuscular Hemoglobin 30.5 pg (26.0-34.0); Monocytes # (Auto) 0.9 K/mcL (0.1-0.9); Monocytes % (Auto) 5.2 % (1.0-12.0); Platelet Count 352 K/mcL (140-440); RBC 3.69 M/mcL (4.50-5.90)
[2017-09-07 06:55] LABS: ALT/SGPT 18 U/l (0-40); Albumin 2.9 gm/dL (3.2-5.2); Albumin/Globulin Ratio 0.8 (1.0-2.3); Alkaline Phosphatase 88 U/L (39-117); Bilirubin,Direct < 0.2 mg/dL (0.0-0.3); Blood Urea Nitrogen 12 mg/dl (6-20); Gamma Glutamyl Transpeptidase 18 U/L (8-61); Uric Acid 2.3 mg/dL (2.5-8.0)
[2017-09-07] MEDS: INSULIN LISPRO 1 UNIT/0.01 ML UNIT SQ SCH ×4 (07:23→21:04)
[2017-09-07] MEDS: HEPARIN 5,000 UNIT/ML VIAL SQ SCH ×2 (09:02→21:03)
[2017-09-07] MEDS: METOPROLOL SUCCINATE 50 MG TAB.XL.24H PO SCH ×2 (09:03→21:03)
[2017-09-07] MEDS: ASPIRIN 81 MG TAB.CHEW PO SCH (09:03)
[2017-09-07] MEDS: FAMOTIDINE 20 MG TABLET PO SCH ×2 (09:03→21:03)
[2017-09-07] MEDS: ISOSORBIDE MONONITRATE 30 MG TAB.XL.24H PO SCH (09:03)
[2017-09-07] MEDS: VANCOMYCIN 1,500 MG in 0.9 % SODIUM CHLORIDE 500 ML IV SCH ×2 (09:04→21:03)
--- NOTE | 2017-09-07 16:08 | Internal Med Progress Note ---
Medical - PN: Subj Patient information: Note initiated : 09/07/17 at 4:06 pm Service Date, if different from initiated Date: [] Patient: Faustino Muir a 47 y/o M admitted on 09/05/17 for I&D and Amputation of 5th Metatarsal. Chief Complaint: [] Interval history: Mr. Muir is a 47 year old Male with history of diabetes, hypertension hyperlipidemia presents to the emergency room today after being evaluated by the inspector rubber stamp die who sent the patient here for evaluation for infected diabetic wound. According to the patient he developed an ulcer on the left foot approximately 5-6 weeks ago, the patient has been under the care of Dr. Duncan since then. He was treated with doxycycline once and the infection got better. The ulcer was debrided by Dr. Meyer a couple weeks ago. The patient since has developed swelling erythema and redness in the left foot. He was seen by Dr. Duncan last Tuesday and it was noted that he possibly had an abscess. He had an I&D done in the office. He was given some antibiotics. The patient was again seen today and it was noted that his infection was getting worse he was therefore sent to the emergency room for further evaluation. The patient admits to have some pain in the left foot throbbing nonradiating worse with activity. It is better with rest. The patient also notes that he may have had some fever and chills last week but none present. Besides this the patient has no other complaints. A 10 point ROS was done and is negative except above. In the emergency room the patient is afebrile, he has stable vital signs. The patient has leukocytosis with a WBC count of 22. Left lites show sodium of 129 blood glucose is also elevated at 375. The patient is therefore being admitted to the hospital for further management as he has possible sepsis, Dr Munoz will be planning surgery in AM, CT pending. 09/06 She is seen and examined no acute overnight events, glucose values now well controlled, patient has no acute pain. Blood cultures came back positive as gram-positive cocci in pairs and chains. Sensitivity pending. Patient numbers with no antibiotics WBC trending down. Dr. Duncan plans to take the patient to the OR this afternoon. 09/07 Patient seen and examined, no acute overnight events. Leukocytosis still persistent at 17,000. Blood cultures initially was positive repeat cultures pending. Initial blood culture is gram-positive strep today. Wound culture also growing strep okay. Patient continued with broad-spectrum antibiotics. Dr. Duncan following. PICC line to be placed if the patient is able to clear his bacteremia. Pertinent ROS: Denies headache, dizziness Denies chest pain, palpitations Denies cough or shortness of breath Denies abdominal pain, nausea or vomiting. - Constitutional Vitals: Vital Signs Temp Pulse Resp BP Pulse Ox 98.1 F 62 12 118/70 95 09/07/17 15:27 09/07/17 11:58 09/07/17 15:27 09/07/17 15:27 09/07/17 15:27 Period Temp Pulse Resp BP Sys/Ramírez Pulse Ox Last 24 Hr 97.3 F-98.3 F 62-85 12-22 118-149/68-90 95-97 Intake and Output 09/07/17 09/07/17 09/07/17 05:59 13:59 21:59 Intake Total 2024 1010 / 1010 920 / 920 Output Total 850 / 850 600 / 600 Balance 1175 / 1175 410 / 410 920 / 920 Weight 250 lb 8 oz Patient Weight 09/08/17 05:59 Weight 250 lb 8 oz Intake & Output: Intake & Output 09/07/17 09/07/17 09/07/17 05:59 13:59 21:59 Intake Total 2024 1010 / 1010 920 / 920 Output Total 850 / 850 600 / 600 Balance 1175 / 1175 410 / 410 920 / 920 Weight 250 lb 8 oz Intake: IV 1550 / 1550 50 / 50 Sodium Chloride 0.9% 1,000 ml @ 1000 / 1000 75 mls/hr IV .[id number] [facility] Rx#: [id number] Zosyn 3.375 gm In Dextrose 5% 50 / 50 50 / 50 in Water 50 ml @ 100 mls/hr IV Q6H [facility] Rx#:[id number] Vancomycin 1,500 mg In Sodium 500 / 500 Chloride 0.9% 500 ml @ 333.3 mls/hr IV Q12H [facility] Rx#: [id number] Oral 475 / 475 960 / 960 920 / 920 Output: Void Amount 850 / 850 600 / 600 Other: Meal Breakfast Lunch Percent of Meal Consumed 100% 100% Exam: Constitutional; Afebrile, cooperative, alert, not in distress. Eyes- No icterus, , No periorbital swelling Ears- Ext ear normal, hearing normal to conversation. Neck- Midline trachea, supple Respiratory system: Air Entry equal on both sides, No crackles or wheezing, no rhonchi. CVS- Rate rhythm regular, S1,S2 heard, no gallop, no rub. Abdomen- Soft nontender abdomen, no organomegaly, no tenderness, no guarding or rigidity, INSPECTOR [employer]ICOND[employer] WAFER- AOOx3, moving all extremities, no gross focal deficit noted. Medical - PN: Obj Da - Labs CBC & Chem 7: 09/07/17 04:30 09/07/17 04:30 Labs: Abnormal Lab Results 09/07/17 09/07/17 09/06/17 04:30 04:30 04:14 WBC 17.3 H RBC 3.69 L Hgb 11.3 L Hct 33.5 L MPV Gran % 87.3 H Lymph % (Auto) 4.7 L Gran # 15.1 H Lymph # (Auto) 0.8 L Graves # (Auto) PT 15.3 H INR 1.2 H Sodium Chloride Glucose 171 H Uric Acid 2.3 L Phosphorus 2.6 L Lactate Dehydrogenase Albumin 2.9 L Globulin Albumin/Globulin Ratio 0.8 L 09/06/17 09/06/17 09/05/17 04:14 04:14 14:20 WBC 15.9 H RBC 3.83 L Hgb 11.8 L Hct 34.5 L MPV 7.2 L Gran % 79.6 H Lymph % (Auto) 9.3 L Gran # 12.6 H Lymph # (Auto) Graves # (Auto) 1.0 H PT INR Sodium 129 L Chloride 90 L Glucose 375 H Uric Acid Phosphorus Lactate Dehydrogenase 285 H Albumin 2.6 L Globulin 4.4 H Albumin/Globulin Ratio 0.7 L 0.8 L 09/05/17 14:20 WBC 22.4 H RBC Hgb Hct MPV 7.3 L Gran % 89.8 H Lymph % (Auto) 4.3 L Gran # 20.1 H Lymph # (Auto) 1.0 L Graves # (Auto) 1.2 H PT INR Sodium Chloride Glucose Uric Acid Phosphorus Lactate Dehydrogenase Albumin Globulin Albumin/Globulin Ratio Meds: Medications Acetaminophen (Tylenol) 650 mg PO Q6HP PRN PRN Reason: PAIN/FEVER > 101 Albuterol Sulfate (Ventolin) 2.5 mg NEB Q2HP PRN PRN Reason: Shortness Of Breath Aspirin (Aspirin) 81 mg PO DAILY [facility] Last Admin: 09/07/17 09:03 Dose: 81 mg Atorvastatin Calcium (Lipitor) 80 mg PO HS [facility] Last Admin: 09/06/17 20:50 Dose: 80 mg Dextrose (Dextrose 50%) 0 ml IV UD PRN PRN Reason: Hypoglycemia Diagnostic Test (Pha) (Accu-Chek) 1 each FS ACHS [facility] Last Admin: 09/07/17 11:34 Dose: 1 each Famotidine (Pepcid) 20 mg PO BID [facility] Last Admin: 09/07/17 09:03 Dose: 20 mg Glucose (Insta-Glucose) 15 gm PO PRN PRN PRN Reason: Hypoglycemia Heparin Sodium (Porcine) (Heparin) 5,000 unit SQ Q12 [facility] Last Admin: 09/07/17 09:02 Dose: 5,000 unit Hydromorphone HCl (Dilaudid) 0.5 mg IV Q2HP PRN PRN Reason: PAIN LEVEL > 6 Piperacillin Sod/Tazobactam (Sod 3.375 gm/ Dextrose) 50 mls @ 100 mls/hr IV Q6H [facility] Last Admin: 09/07/17 11:34 Dose: 100 mls/hr Vancomycin HCl 1,500 mg/ (Sodium Chloride) 500 mls @ 333.3 mls/hr IV Q12H [facility] Last Admin: 09/07/17 09:04 Dose: 250 mls/hr Insulin Glargine (Lantus) 120 unit SQ [facility] Last Admin: 09/06/17 20:52 Dose: 120 unit Insulin Human Lispro (Humalog) 0 unit SQ [facility] PRN Reason: Protocol Last Admin: 09/07/17 12:58 Dose: 6 unit Isosorbide Mononitrate (Imdur) 30 mg PO QDAY [facility] Last Admin: 09/07/17 09:03 Dose: 30 mg Metoprolol Succinate (Toprol Xl) 100 mg PO BID [facility] Last Admin: 09/07/17 09:03 Dose: 100 mg Ondansetron HCl (Zofran) 4 mg IV Q6HP PRN PRN Reason: Nausea And Vomiting Oxycodone HCl (Roxicodone) 5 mg PO Q4HP PRN PRN Reason: PAIN LEVEL 3-6 Sodium Chloride (Saline Flush) 10 ml IV Q8 [facility] Last Admin: 09/07/17 12:43 Dose: Not Given Vancomycin HCl (Vancomycin Per Pharmacy) 1 order IV UD [facility] Medical - PN: A/P - Time Spent With Patient Total time spent is greater than 50% in coordination of care (as documented) at patient's floor/unit and/or counseling patient: - Narrative A/P Narrative: A/P Sepsis Necrotizing Diabetic Foot infection with Cellutlitis Possible osteo-myelitis Diabetes uncontrolled Hypertension Hyperlipidemia History of cardiac arrest status post AICD placement Coronary artery disease Pseudohyponatremia [low sodium secondary to glucose which is elevated] Gram-positive bacteremia Plan Continue IV fluids Continue IV antibiotics with vancomycin and Zosyn for now. Get blood cultures, gram-positive cocci noted and blood cultures. strep algactate, Same bact eria is also isolated from the patients wound. Foot CT reviewed, patient does have ostium mellitus, management per podiatry, s/ p surgery, not sure if all infeted bone is removed. if so then patient may only need short term antibiotics of 2 weeks, given its only s trep and not mrsa or other pathogens isolated he may just do well with augmentin. should another pathogen be isolated, he will need picc line and likely higher antibiotics. Blood sugar well controlled. Monitor glucose and adjust insulin once diet is resumed. Patient is on 180 units of Lantus at home. we are using 120 units of lantus for now. IF glucose remains high incresae dose to 150 qhs Home meds resumed as appropriate. DVT prophylaxis with heparin subcu diabetic diet full code. Medical - PN: Qual - VTE Deep Vein Thrombosis/Pulmonary Embolism Present on Admission: No
[2017-09-07] MEDS: ATORVASTATIN 20 MG TABLET PO SCH (21:03)
[2017-09-07] MEDS: INSULIN GLARGINE, HUMAN 1 UNIT/0.01 ML SQ SCH (21:04)
[2017-09-08] MEDS: PIPERACILLIN SODIUM/TAZOBACTAM 3.375 GM in DEXTROSE 5% IN WATER 50 ML IV SCH ×4 (05:49→23:59)
[2017-09-08] MEDS: 0.9 % SODIUM CHLORIDE 10 ML SYRINGE IV SCH ×3 (05:49→23:59)
[2017-09-08 06:34] LABS: ALT/SGPT 19 U/l (0-40); Albumin 2.6 gm/dL (3.2-5.2); Albumin/Globulin Ratio 0.8 (1.0-2.3); Alkaline Phosphatase 49 U/L (39-117); Bilirubin,Direct < 0.2 mg/dL (0.0-0.3); Blood Urea Nitrogen 9 mg/dl (6-20); Gamma Glutamyl Transpeptidase 15 U/L (8-61); Uric Acid 2.9 mg/dL (2.5-8.0)
[2017-09-08] MEDS: INSULIN LISPRO 1 UNIT/0.01 ML UNIT SQ SCH ×4 (07:29→21:49)
[2017-09-08 09:04] LABS: Basophils # (Auto) 0 K/mcL (0.0-0.3); Basophils % (Auto) 0.4 % (0.0-2.0); Eosinophils # (Auto) 0.4 K/mcL (0.0-0.7); Eosinophils % (Auto) 3.8 % (0.0-7.0); Granulocytes % (Auto) 74.8 % (38.0-78.0); Lymphocytes # (Auto) 1.6 K/mcL (1.5-4.8); Lymphocytes % (Auto) 13.8 % (15.5-49.0); Mean Cell Volume 90.9 fL (80.0-100.0); Mean Corpuscular HGB Conc 33.6 g/dL (31.0-36.0); Mean Corpuscular Hemoglobin 30.5 pg (26.0-34.0); Monocytes # (Auto) 0.8 K/mcL (0.1-0.9); Monocytes % (Auto) 7.2 % (1.0-12.0); Platelet Count 430 K/mcL (140-440); RBC 3.79 M/mcL (4.50-5.90); Red Cell Distribution Width 14.3 % (11.5-14.5)
[2017-09-08] MEDS: FUROSEMIDE 20 MG TABLET PO SCH (09:13)
[2017-09-08] MEDS: ISOSORBIDE MONONITRATE 30 MG TAB.XL.24H PO SCH (09:13)
[2017-09-08] MEDS: HEPARIN 5,000 UNIT/ML VIAL SQ SCH ×2 (09:14→21:49)
[2017-09-08] MEDS: METOPROLOL SUCCINATE 50 MG TAB.XL.24H PO SCH ×2 (09:14→21:50)
[2017-09-08] MEDS: ASPIRIN 81 MG TAB.CHEW PO SCH (09:14)
[2017-09-08] MEDS: FAMOTIDINE 20 MG TABLET PO SCH ×2 (09:14→21:50)
--- NOTE | 2017-09-08 11:15 | Orthopedic Progress Note ---
Subjective Patient information: Note initiated : 09/08/17 at 10:45 am Service Date, if different from initiated Date: [] Patient: Faustino Muir 47 y/o M admitted on 09/05/17 for I&D and Amputation of 5th Metatarsal. Chief Complaint: [] Objective Vital signs: Vital Signs Temp Pulse Resp BP Pulse Ox 09/08/17 07:00 95.0 F L 62 14 142/78 95 09/08/17 04:50 97.6 F 79 22 161/83 96 09/07/17 23:45 97.8 F 70 22 133/76 96 09/07/17 20:00 98.0 F 70 24 H 123/67 97 09/07/17 15:27 98.1 F 12 118/70 95 09/07/17 11:58 97.3 F 62 16 127/68 97 Intake and Output 09/07/17 09/08/17 09/08/17 21:59 05:59 13:59 Intake Total 970 / 970 1750 / 1750 600 / 600 Output Total 500 / 500 2049 Balance 470 / 470 -300 / -300 600 / 600 Intake: IV 50 / 50 1050 / 1050 Zosyn 3.375 gm In Dextrose 5% 50 / 50 50 / 50 in Water 50 ml @ 100 mls/hr IV Q6H [facility] Rx#:[id number] Oral 920 / 920 700 / 700 600 / 600 Output: Void Amount 500 / 500 2049 Other: Meal Lunch Breakfast Percent of Meal Consumed 100% 100% Feeding Ability Independent # Voids 2 2 # Bowel Movements 1 Weight 250 lb Intake & Output: Intake & Output 09/07/17 09/08/17 09/08/17 21:59 05:59 13:59 Intake Total 970 / 970 1750 / 1750 600 / 600 Output Total 500 / 500 2049 Balance 470 / 470 -300 / -300 600 / 600 Weight 250 lb Intake: IV 50 / 50 1050 / 1050 Zosyn 3.375 gm In Dextrose 5% 50 / 50 50 / 50 in Water 50 ml @ 100 mls/hr IV Q6H [facility] Rx#:[id number] Oral 920 / 920 700 / 700 600 / 600 Output: Void Amount 500 / 500 2049 Other: Meal Lunch Breakfast Percent of Meal Consumed 100% 100% Feeding Ability Independent # Voids 2 2 # Bowel Movements 1 - Labs CBC & BMP: 09/08/17 08:10 09/08/17 04:30 Labs: Orthopedic Labs 09/06/17 04:14 PT 15.3 H INR 1.2 H 09/08/17 09/08/17 09/07/17 08:10 04:30 04:30 Hgb 11.6 L Not Reportable 11.3 L Hct 34.4 L Not Reportable 33.5 L 09/06/17 09/05/17 04:14 14:20 Hgb 11.8 L 13.8 Hct 34.5 L 41.7 Assessment and Plan (1) Cellulitis of left foot Status: Acute Priority: High Comment: Removal of osteomyelitis with I&D of left foot of critical importance. Plan is: Amputation of left fifth metatarsal with incision and drainage left foot
--- NOTE | 2017-09-08 19:43 | Internal Med Progress Note ---
Medical - PN: Subj Patient information: Note initiated : 09/08/17 at 7:40 pm Service Date, if different from initiated Date: [] Patient: Faustino Muir a 47 y/o M admitted on 09/05/17 for I&D and Amputation of 5th Metatarsal. Chief Complaint: f/u osteomyelitis, cellulitis Interval history: Mr. Muir is a 47 year old Male with history of diabetes, hypertension hyperlipidemia presents to the emergency room today after being evaluated by the supervisor bottle machines who sent the patient here for evaluation for infected diabetic wound. According to the patient he developed an ulcer on the left foot approximately 5-6 weeks ago, the patient has been under the care of Dr. Duncan since then. He was treated with doxycycline once and the infection got better. The ulcer was debrided by Dr. Meyer a couple weeks ago. The patient since has developed swelling erythema and redness in the left foot. He was seen by Dr. Duncan last Tuesday and it was noted that he possibly had an abscess. He had an I&D done in the office. He was given some antibiotics. The patient was again seen today and it was noted that his infection was getting worse he was therefore sent to the emergency room for further evaluation. The patient admits to have some pain in the left foot throbbing nonradiating worse with activity. It is better with rest. The patient also notes that he may have had some fever and chills last week but none present. Besides this the patient has no other complaints. A 10 point ROS was done and is negative except above. In the emergency room the patient is afebrile, he has stable vital signs. The patient has leukocytosis with a WBC count of 22. Left lites show sodium of 129 blood glucose is also elevated at 375. The patient is therefore being admitted to the hospital for further management as he has possible sepsis, Dr Munoz will be planning surgery in AM, CT pending. 09/06 She is seen and examined no acute overnight events, glucose values now well controlled, patient has no acute pain. Blood cultures came back positive as gram-positive cocci in pairs and chains. Sensitivity pending. Patient numbers with no antibiotics WBC trending down. Dr. Duncan plans to take the patient to the OR this afternoon. 09/07 Patient seen and examined, no acute overnight events. Leukocytosis still persistent at 17,000. Blood cultures initially was positive repeat cultures pending. Initial blood culture is gram-positive strep today. Wound culture also growing strep okay. Patient continued with broad-spectrum antibiotics. Dr. Duncan following. PICC line to be placed if the patient is able to clear his bacteremia. 09/08 Seen and examined on rounds. Remained stable. No fevers or chills. Blood cultures preliminarily with group B streptococcus, same organism has been cultured from the foot. No dyspnea, no nausea or vomiting, no abdominal pain, no diarrhea. Tolerating stools. - Constitutional Vitals: Vital Signs Temp Pulse Resp BP Pulse Ox 97.9 F 65 16 133/76 96 09/08/17 19:24 09/08/17 19:24 09/08/17 19:24 09/08/17 19:24 09/08/17 19:24 Period Temp Pulse Resp BP Sys/Ramírez Pulse Ox Last 24 Hr 95.0 F-98.0 F 62-79 14-24 123-168/67-83 95-97 Intake and Output 09/08/17 09/08/17 09/08/17 05:59 13:59 21:59 Intake Total 1750 / 1750 1800 / 1800 170 / 170 Output Total 2049 Balance -300 / -300 1800 / 1800 170 / 170 Gen: In NAD Chest: unlabored, clear CV: RRR, no murmur Abd: Soft, NT Ext: left foot wrapped, NVI Neuro: Alert, Ox3, decreased peripheral sensation Intake & Output: Intake & Output 09/08/17 09/08/17 09/08/17 05:59 13:59 21:59 Intake Total 1750 / 1750 1800 / 1800 170 / 170 Output Total 2049 Balance -300 / -300 1800 / 1800 170 / 170 Intake: IV 1050 / 1050 100 / 100 50 / 50 Zosyn 3.375 gm In Dextrose 5% 50 / 50 100 / 100 50 / 50 in Water 50 ml @ 100 mls/hr IV Q6H [facility] Rx#:[id number] Oral 700 / 700 1700 / 1700 120 / 120 Output: Void Amount 2049 Other: Meal Breakfast Dinner Percent of Meal Consumed 100% 100% Feeding Ability Independent # Voids 2 2 1 # Bowel Movements 1 Medical - PN: Obj Da - Labs CBC & Chem 7: 09/08/17 08:10 09/08/17 04:30 Labs: Abnormal Lab Results 09/08/17 09/08/17 09/07/17 08:10 04:30 04:30 WBC 11.7 H RBC 3.79 L Hgb 11.6 L Hct 34.4 L MPV 7.1 L Gran % Lymph % (Auto) 13.8 L Gran # 8.8 H Lymph # (Auto) Grant # (Auto) PT INR Glucose 63 L 171 H Uric Acid 2.3 L Calcium 8.5 L Phosphorus 2.6 L Lactate Dehydrogenase Total Protein 5.8 L Albumin 2.6 L 2.9 L Albumin/Globulin Ratio 0.8 L 0.8 L Triglycerides 169 H 09/07/17 09/06/17 09/06/17 04:30 04:14 04:14 WBC 17.3 H RBC 3.69 L Hgb 11.3 L Hct 33.5 L MPV Gran % 87.3 H Lymph % (Auto) 4.7 L Gran # 15.1 H Lymph # (Auto) 0.8 L Grant # (Auto) PT 15.3 H INR 1.2 H Glucose Uric Acid Calcium Phosphorus Lactate Dehydrogenase 285 H Total Protein Albumin 2.6 L Albumin/Globulin Ratio 0.7 L Triglycerides 09/06/17 04:14 WBC 15.9 H RBC 3.83 L Hgb 11.8 L Hct 34.5 L MPV 7.2 L Gran % 79.6 H Lymph % (Auto) 9.3 L Gran # 12.6 H Lymph # (Auto) Grant # (Auto) 1.0 H PT INR Glucose Uric Acid Calcium Phosphorus Lactate Dehydrogenase Total Protein Albumin Albumin/Globulin Ratio Triglycerides Microbiology 09/05/17 14:20 Blood Culture - Preliminary Blood 09/06/17 12:48 Gram Stain - Final Foot - Left Tissue Culture - Preliminary Strep agalactiae - (group b) Enterococcus species 09/07/17 06:29 Blood Culture - Preliminary Blood 09/07/17 04:30 Blood Culture - Preliminary Blood Meds: Medications Acetaminophen (Tylenol) 650 mg PO Q6HP PRN PRN Reason: PAIN/FEVER > 101 Albuterol Sulfate (Ventolin) 2.5 mg NEB Q2HP PRN PRN Reason: Shortness Of Breath Aspirin (Aspirin) 81 mg PO DAILY [facility] Last Admin: 04/19/18 09:14 Dose: 81 mg Atorvastatin Calcium (Lipitor) 80 mg PO HS [facility] Last Admin: 09/07/17 21:03 Dose: 80 mg Dextrose (Dextrose 50%) 0 ml IV UD PRN PRN Reason: Hypoglycemia Diagnostic Test (Pha) (Accu-Chek) 1 each FS ACHS [facility] Last Admin: 09/08/17 16:52 Dose: 1 each Famotidine (Pepcid) 20 mg PO BID [facility] Last Admin: 09/08/17 09:14 Dose: 20 mg Furosemide (Lasix) 20 mg PO QDAY [facility] Last Admin: 09/08/17 09:13 Dose: 20 mg Glucose (Insta-Glucose) 15 gm PO PRN PRN PRN Reason: Hypoglycemia Heparin Sodium (Porcine) (Heparin) 5,000 unit SQ Q12 [facility] Last Admin: 09/08/17 09:14 Dose: 5,000 unit Hydromorphone HCl (Dilaudid) 0.5 mg IV Q2HP PRN PRN Reason: PAIN LEVEL > 6 Piperacillin Sod/Tazobactam (Sod 3.375 gm/ Dextrose) 50 mls @ 100 mls/hr IV Q6H [facility] Last Infusion: 09/08/17 18:49 Dose: Infused Insulin Glargine (Lantus) 120 unit SQ [facility] Last Admin: 09/07/17 21:04 Dose: 120 unit Insulin Human Lispro (Humalog) 0 unit SQ [facility] PRN Reason: Protocol Last Admin: 09/08/17 16:52 Dose: 6 unit Isosorbide Mononitrate (Imdur) 30 mg PO QDAY [facility] Last Admin: 09/08/17 09:13 Dose: 30 mg Metoprolol Succinate (Toprol Xl) 100 mg PO BID [facility] Last Admin: 09/08/17 09:14 Dose: 100 mg Ondansetron HCl (Zofran) 4 mg IV Q6HP PRN PRN Reason: Nausea And Vomiting Oxycodone HCl (Roxicodone) 5 mg PO Q4HP PRN PRN Reason: PAIN LEVEL 3-6 Sodium Chloride (Saline Flush) 10 ml IV Q8 [facility] Last Admin: 09/08/17 12:45 Dose: 10 ml Medical - PN: A/P - Narrative A/P Narrative: Sepsis-resolved Necrotizing Diabetic foot infection with cellulitis Osteomyelitis, s/p resection Diabetes uncontrolled Hypertension Hyperlipidemia History of cardiac arrest status post AICD placement Coronary artery disease Pseudohyponatremia [low sodium secondary to glucose which is elevated] Group B strep bacteremia Plan Saline lock Continue IV antibiotics, narrow to pip/tazo, stop vancomycin as no MRSA cultured Follow up surveillance blood cultures, if remain negative at 48 hours, then place long-term IV access (midline or PICC) for longer-term abx. Source of bacteremia is the patient's foot wound. Will need 10 days Rx for bacteremia. Follow-up pathology, if bone margins w/o osteo, then may not need prolonged abx for the foot infection (beyond Rx of bacteremia) Continue ADA diet, current DM regimen. Patient is on 180 units of Lantus at home. we are using 120 units of Lantus for now. If glucose remains high increase dose to 150 qhs Home meds resumed as appropriate. DVT prophylaxis with heparin subcu Medical - PN: Qual - VTE Deep Vein Thrombosis/Pulmonary Embolism Present on Admission: No
[2017-09-08] MEDS: ATORVASTATIN 20 MG TABLET PO SCH (21:50)
[2017-09-08] MEDS: INSULIN GLARGINE, HUMAN 1 UNIT/0.01 ML SQ SCH (21:50)
[2017-09-09] MEDS: PIPERACILLIN SODIUM/TAZOBACTAM 3.375 GM in DEXTROSE 5% IN WATER 50 ML IV SCH ×3 (05:14→17:55)
[2017-09-09] MEDS: 0.9 % SODIUM CHLORIDE 10 ML SYRINGE IV SCH ×2 (05:14→17:06)
[2017-09-09 06:22] LABS: Basophils # (Auto) 0 K/mcL (0.0-0.3); Basophils % (Auto) 0.5 % (0.0-2.0); Eosinophils # (Auto) 0.3 K/mcL (0.0-0.7); Eosinophils % (Auto) 3.4 % (0.0-7.0); Granulocytes % (Auto) 68.9 % (38.0-78.0); Lymphocytes # (Auto) 1.6 K/mcL (1.5-4.8); Lymphocytes % (Auto) 19.4 % (15.5-49.0); Mean Cell Volume 90.5 fL (80.0-100.0); Mean Corpuscular HGB Conc 33.7 g/dL (31.0-36.0); Mean Corpuscular Hemoglobin 30.5 pg (26.0-34.0); Monocytes # (Auto) 0.6 K/mcL (0.1-0.9); Monocytes % (Auto) 7.8 % (1.0-12.0); Platelet Count 356 K/mcL (140-440); RBC 3.72 M/mcL (4.50-5.90); Red Cell Distribution Width 14.5 % (11.5-14.5)
[2017-09-09 06:53] LABS: ALT/SGPT 25 U/l (0-40); Albumin 2.8 gm/dL (3.2-5.2); Albumin/Globulin Ratio 0.8 (1.0-2.3); Alkaline Phosphatase 51 U/L (39-117); Bilirubin,Direct < 0.2 mg/dL (0.0-0.3); Blood Urea Nitrogen 8 mg/dl (6-20); Gamma Glutamyl Transpeptidase 19 U/L (8-61); Uric Acid 2.7 mg/dL (2.5-8.0)
[2017-09-09] MEDS: FUROSEMIDE 20 MG TABLET PO SCH (09:08)
[2017-09-09] MEDS: METOPROLOL SUCCINATE 50 MG TAB.XL.24H PO SCH ×2 (09:09→21:27)
[2017-09-09] MEDS: ASPIRIN 81 MG TAB.CHEW PO SCH (09:09)
[2017-09-09] MEDS: FAMOTIDINE 20 MG TABLET PO SCH ×2 (09:10→21:27)
[2017-09-09] MEDS: HEPARIN 5,000 UNIT/ML VIAL SQ SCH ×2 (09:11→21:28)
[2017-09-09] MEDS: ISOSORBIDE MONONITRATE 30 MG TAB.XL.24H PO SCH (09:23)
[2017-09-09] MEDS: INSULIN LISPRO 1 UNIT/0.01 ML UNIT SQ SCH ×4 (09:24→22:01)
--- NOTE | 2017-09-09 09:37 | Surgical Pathology Report ---
HISTOLOGY SPECIMEN MICROSCOPIC DIAGNOSIS BONE, LEFT FIFTH METATARSAL, EXCISION: -- FRACTURE CALLUS WITH LAMELLAR AND WOVEN BONE, DEGENERATIVE CHANGE, HEMORRHAGE, FIBROSIS AND MILD ACUTE/CHRONIC INFLAMMATION. (SEE COMMENT) (ACP:djf) COMMENT: The inflammatory changes are consistent with acute and chronic osteomyelitis. Correlation with radiographic findings and culture is recommended. MICROSCOPIC DESCRIPTION The section of the nonarticular bone reveals a region of fracture with associated woven and lamellar bone, chronic inflammation, fibrosis and hemorrhage. The periosteal soft tissue has mixed inflammation with hemorrhage and fibrosis. In a few areas there is degenerated intraosseous bone with osteoblastic rimming and a few irregular areas of cartilage. The marrow has edematous fibrosis with patchy mixed inflammatory cells, including neutrophils, histiocytes, lymphocytes and a few plasma cells. No neoplasia or malignancy is seen. (ACP:djF) GROSS DESCRIPTION Received in formalin labeled with the patient information on the container and left fifth metatarsal bone on the requisition, is a segment of bone with a small amount of attached streeter-white soft tissue. The bone has a cut surface and an articular surface and measures 4.5 cm in length by 1.3 cm in diameter. Following decalcification, one complete cross section is submitted in A1-A2 with articular half in A1 and opposite end in A2. (RLF:adj) Electronically Signed by: Jaquan Shrestha M.D.
[2017-09-09] MEDS: ATORVASTATIN 20 MG TABLET PO SCH (21:26)
[2017-09-09] MEDS: INSULIN GLARGINE, HUMAN 1 UNIT/0.01 ML SQ SCH (21:29)
--- NOTE | 2017-09-09 21:47 | Internal Med Progress Note ---
Medical - PN: Subj Patient information: Note initiated : 09/09/17 at 9:45 pm Service Date, if different from initiated Date: [] Patient: Faustino Muir a 47 y/o M admitted on 09/05/17 for I&D and Amputation of 5th Metatarsal. Chief Complaint: f/u foot infection Interval history: Mr. Muir is a 47 year old Male with history of diabetes, hypertension hyperlipidemia presents to the emergency room today after being evaluated by the evidence technician who sent the patient here for evaluation for infected diabetic wound. According to the patient he developed an ulcer on the left foot approximately 5-6 weeks ago, the patient has been under the care of Dr. Duncan since then. He was treated with doxycycline once and the infection got better. The ulcer was debrided by Dr. Meyer a couple weeks ago. The patient since has developed swelling erythema and redness in the left foot. He was seen by Dr. Duncan last Tuesday and it was noted that he possibly had an abscess. He had an I&D done in the office. He was given some antibiotics. The patient was again seen today and it was noted that his infection was getting worse he was therefore sent to the emergency room for further evaluation. The patient admits to have some pain in the left foot throbbing nonradiating worse with activity. It is better with rest. The patient also notes that he may have had some fever and chills last week but none present. Besides this the patient has no other complaints. A 10 point ROS was done and is negative except above. In the emergency room the patient is afebrile, he has stable vital signs. The patient has leukocytosis with a WBC count of 22. Left lites show sodium of 129 blood glucose is also elevated at 375. The patient is therefore being admitted to the hospital for further management as he has possible sepsis, Dr Munoz will be planning surgery in AM, CT pending. 09/06 She is seen and examined no acute overnight events, glucose values now well controlled, patient has no acute pain. Blood cultures came back positive as gram-positive cocci in pairs and chains. Sensitivity pending. Patient numbers with no antibiotics WBC trending down. Dr. Duncan plans to take the patient to the OR this afternoon. 09/07 Patient seen and examined, no acute overnight events. Leukocytosis still persistent at 17,000. Blood cultures initially was positive repeat cultures pending. Initial blood culture is gram-positive strep today. Wound culture also growing strep okay. Patient continued with broad-spectrum antibiotics. Dr. Duncan following. PICC line to be placed if the patient is able to clear his bacteremia. 09/08 Seen and examined on rounds. Remained stable. No fevers or chills. Blood cultures preliminarily with group B streptococcus, same organism has been cultured from the foot. No dyspnea, no nausea or vomiting, no abdominal pain, no diarrhea. Tolerating stools. 09/09 Seen and examined. No new complaints. Remains stressed intact. Discussed with Dr. Duncan, he recommended 2 weeks of IV antibiotics for the foot infection. He resected the entire bone that was involved with osteomyelitis, though still had significant soft tissue infection surrounding. Laboratory now reporting enterococcus in addition to strep agalactiae, then later this afternoon probable group B strep as well as now on culture. This was the cultures obtained on Tuesday. Had midline placed for IV antibiotics. - Constitutional Vitals: Vital Signs Temp Pulse Resp BP Pulse Ox 97.4 F 70 18 144/70 96 09/09/17 19:37 09/09/17 19:37 09/09/17 19:37 09/09/17 19:37 09/09/17 19:37 Period Temp Pulse Resp BP Sys/Ramírez Pulse Ox Last 24 Hr 96 F-98.1 F 52-73 16-18 139-161/70-88 96-98 Intake and Output 09/09/17 09/09/17 09/09/17 05:59 13:59 21:59 Intake Total 425 / 425 700 / 700 480 / 480 Output Total 900 / 900 600 / 600 750 / 750 Balance -475 / -475 100 / 100 -270 / -270 Weight 250 lb 8 oz Patient Weight 09/10/17 05:59 Weight 250 lb 8 oz General: No acute distress Chest: Clear Cardiac vascular: Regular, no murmur Abdomen: Soft, nontender Extremities: Foot is dressed, neurovascularly intact. Neuro: Alert, oriented 3, nonfocal Intake & Output: Intake & Output 09/09/17 09/09/17 09/09/17 05:59 13:59 21:59 Intake Total 425 / 425 700 / 700 480 / 480 Output Total 900 / 900 600 / 600 750 / 750 Balance -475 / -475 100 / 100 -270 / -270 Weight 250 lb 8 oz Intake: IV 50 / 50 100 / 100 Zosyn 3.375 gm In Dextrose 5% 50 / 50 100 / 100 in Water 50 ml @ 100 mls/hr IV Q6H [facility] Rx#:[id number] Oral 375 / 375 600 / 600 480 / 480 Output: Urine Catheter Amount 750 / 750 Void Amount 900 / 900 600 / 600 Other: Meal Breakfast Dinner Percent of Meal Consumed 100% 100% Feeding Ability Independent Medical - PN: Obj Da - Labs CBC & Chem 7: 09/09/17 04:30 09/09/17 04:30 Labs: Abnormal Lab Results 09/09/17 09/09/17 09/08/17 04:30 04:30 08:10 WBC 11.7 H RBC 3.72 L 3.79 L Hgb 11.3 L 11.6 L Hct 33.6 L 34.4 L MPV 7.3 L 7.1 L Gran % Lymph % (Auto) 13.8 L Gran # 8.8 H Lymph # (Auto) Glucose 59 L Uric Acid Calcium Phosphorus 4.7 H Total Protein Albumin 2.8 L Albumin/Globulin Ratio 0.8 L Triglycerides 09/08/17 09/07/17 09/07/17 04:30 04:30 04:30 WBC 17.3 H RBC 3.69 L Hgb 11.3 L Hct 33.5 L MPV Gran % 87.3 H Lymph % (Auto) 4.7 L Gran # 15.1 H Lymph # (Auto) 0.8 L Glucose 63 L 171 H Uric Acid 2.3 L Calcium 8.5 L Phosphorus 2.6 L Total Protein 5.8 L Albumin 2.6 L 2.9 L Albumin/Globulin Ratio 0.8 L 0.8 L Triglycerides 169 H Microbiology 09/05/17 14:20 Blood Culture - Preliminary Blood 09/06/17 12:48 Gram Stain - Final Foot - Left Tissue Culture - Preliminary Strep agalactiae - (group b) Enterococcus species Presumptive beta strep 09/07/17 06:29 Blood Culture - Preliminary Blood 09/07/17 04:30 Blood Culture - Preliminary Blood Meds: Medications Acetaminophen (Tylenol) 650 mg PO Q6HP PRN PRN Reason: PAIN/FEVER > 101 Albuterol Sulfate (Ventolin) 2.5 mg NEB Q2HP PRN PRN Reason: Shortness Of Breath Aspirin (Aspirin) 81 mg PO DAILY [facility] Last Admin: 09/09/17 09:09 Dose: 81 mg Atorvastatin Calcium (Lipitor) 80 mg PO HS [facility] Last Admin: 09/09/17 21:26 Dose: 80 mg Dextrose (Dextrose 50%) 0 ml IV UD PRN PRN Reason: Hypoglycemia Diagnostic Test (Pha) (Accu-Chek) 1 each FS ACHS [facility] Last Admin: 09/09/17 21:39 Dose: 1 each Famotidine (Pepcid) 20 mg PO BID [facility] Last Admin: 09/09/17 21:27 Dose: 20 mg Furosemide (Lasix) 20 mg PO QDAY [facility] Last Admin: 09/09/17 09:08 Dose: 20 mg Glucose (Insta-Glucose) 15 gm PO PRN PRN PRN Reason: Hypoglycemia Heparin Sodium (Porcine) (Heparin) 5,000 unit SQ Q12 [facility] Last Admin: 09/09/17 21:28 Dose: 5,000 unit Hydromorphone HCl (Dilaudid) 0.5 mg IV Q2HP PRN PRN Reason: PAIN LEVEL > 6 Piperacillin Sod/Tazobactam (Sod 3.375 gm/ Dextrose) 50 mls @ 100 mls/hr IV Q6H [facility] Last Admin: 09/09/17 17:55 Dose: 100 mls/hr Insulin Glargine (Lantus) 120 unit SQ [facility] Last Admin: 09/09/17 21:29 Dose: 120 unit Insulin Human Lispro (Humalog) 0 unit SQ [facility] PRN Reason: Protocol Last Admin: 09/09/17 17:07 Dose: 9 unit Isosorbide Mononitrate (Imdur) 30 mg PO QDAY [facility] Last Admin: 09/09/17 09:23 Dose: 30 mg Metoprolol Succinate (Toprol Xl) 100 mg PO BID [facility] Last Admin: 09/09/17 21:27 Dose: 100 mg Ondansetron HCl (Zofran) 4 mg IV Q6HP PRN PRN Reason: Nausea And Vomiting Oxycodone HCl (Roxicodone) 5 mg PO Q4HP PRN PRN Reason: PAIN LEVEL 3-6 Sodium Chloride (Saline Flush) 10 ml IV Q8 [facility] Last Admin: 09/09/17 17:06 Dose: 10 ml Medical - PN: A/P - Time Spent With Patient Total time spent is greater than 50% in coordination of care (as documented) at patient's floor/unit and/or counseling patient: 25 - 35 minutes - Narrative A/P Narrative: 47-year-old male with type 2 diabetes admitted with left foot wound, osteomyelitis of the metatarsal. Status post I&D and resection. Sepsis-resolved Necrotizing Diabetic foot infection with cellulitis-improving. Now polymicrobial with group B strep, enterococcus and probable beta strep. Osteomyelitis, s/p resection of infected 5th metatarsal Diabetes uncontrolled Hypertension Hyperlipidemia History of cardiac arrest status post AICD placement Coronary artery disease Pseudohyponatremia [low sodium secondary to glucose which is elevated] Group B strep bacteremia Plan Saline lock Continue IV pip/tazo, which should cover all pathogens as well as any unreported anaerobes. Follow up surveillance blood cultures negative, midline placed for long-term IV access. We'll need minimum 10 days of treatment for bacteremia, after discussion Dr. Duncan, plan 14 days of treatment for foot infection. Continue ADA diet, current DM regimen. Patient is on 180 units of Lantus at home. we are using 120 units of Lantus for now. If glucose remains high increase dose to 150 qhs Home meds resumed as appropriate. DVT prophylaxis with heparin subcu Medical - PN: Qual - VTE Deep Vein Thrombosis/Pulmonary Embolism Present on Admission: No
[2017-09-10] MEDS: PIPERACILLIN SODIUM/TAZOBACTAM 3.375 GM in DEXTROSE 5% IN WATER 50 ML IV SCH ×4 (00:21→18:33)
[2017-09-10] MEDS: 0.9 % SODIUM CHLORIDE 10 ML SYRINGE IV SCH ×4 (00:22→21:01)
[2017-09-10 05:01] LABS: Basophils # (Auto) 0 K/mcL (0.0-0.3); Basophils % (Auto) 0.3 % (0.0-2.0); Eosinophils # (Auto) 0.3 K/mcL (0.0-0.7); Eosinophils % (Auto) 3.9 % (0.0-7.0); Granulocytes % (Auto) 66.4 % (38.0-78.0); Lymphocytes # (Auto) 1.8 K/mcL (1.5-4.8); Lymphocytes % (Auto) 20.9 % (15.5-49.0); Mean Cell Volume 89.9 fL (80.0-100.0); Mean Corpuscular Hemoglobin 30.6 pg (26.0-34.0); Monocytes # (Auto) 0.7 K/mcL (0.1-0.9); Monocytes % (Auto) 8.5 % (1.0-12.0); Platelet Count 352 K/mcL (140-440); RBC 3.69 M/mcL (4.50-5.90)
[2017-09-10 05:24] LABS: ALT/SGPT 39 U/l (0-40); Albumin 2.9 gm/dL (3.2-5.2); Albumin/Globulin Ratio 0.9 (1.0-2.3); Alkaline Phosphatase 52 U/L (39-117); Bilirubin,Direct < 0.2 mg/dL (0.0-0.3); Blood Urea Nitrogen 10 mg/dl (6-20); Gamma Glutamyl Transpeptidase 23 U/L (8-61); Uric Acid 2.3 mg/dL (2.5-8.0)
[2017-09-10] MEDS: INSULIN LISPRO 1 UNIT/0.01 ML UNIT SQ SCH ×4 (08:29→21:00)
[2017-09-10] MEDS: ASPIRIN 81 MG TAB.CHEW PO SCH (08:59)
[2017-09-10] MEDS: FAMOTIDINE 20 MG TABLET PO SCH ×2 (08:59→20:59)
[2017-09-10] MEDS: ISOSORBIDE MONONITRATE 30 MG TAB.XL.24H PO SCH (09:00)
[2017-09-10] MEDS: METOPROLOL SUCCINATE 50 MG TAB.XL.24H PO SCH ×2 (09:00→20:59)
[2017-09-10] MEDS: FUROSEMIDE 20 MG TABLET PO SCH (09:00)
[2017-09-10] MEDS: HEPARIN 5,000 UNIT/ML VIAL SQ SCH ×2 (09:01→21:00)
--- NOTE | 2017-09-10 18:05 | Internal Med Progress Note ---
Medical - PN: Subj Patient information: Note initiated : 09/10/17 at 5:51 pm Service Date, if different from initiated Date: [] Patient: Faustino Muir a 47 y/o M admitted on 09/05/17 for I&D and Amputation of 5th Metatarsal. Chief Complaint: f/u foot wound Interval history: Mr. Muir is a 47 year old Male with history of diabetes, hypertension hyperlipidemia presents to the emergency room today after being evaluated by the surveying or spatial science technician who sent the patient here for evaluation for infected diabetic wound. According to the patient he developed an ulcer on the left foot approximately 5-6 weeks ago, the patient has been under the care of Dr. Duncan since then. He was treated with doxycycline once and the infection got better. The ulcer was debrided by Dr. Meyer a couple weeks ago. The patient since has developed swelling erythema and redness in the left foot. He was seen by Dr. Duncan last Tuesday and it was noted that he possibly had an abscess. He had an I&D done in the office. He was given some antibiotics. The patient was again seen today and it was noted that his infection was getting worse he was therefore sent to the emergency room for further evaluation. The patient admits to have some pain in the left foot throbbing nonradiating worse with activity. It is better with rest. The patient also notes that he may have had some fever and chills last week but none present. Besides this the patient has no other complaints. A 10 point ROS was done and is negative except above. In the emergency room the patient is afebrile, he has stable vital signs. The patient has leukocytosis with a WBC count of 22. Left lites show sodium of 129 blood glucose is also elevated at 375. The patient is therefore being admitted to the hospital for further management as he has possible sepsis, Dr Munoz will be planning surgery in AM, CT pending. 09/06 She is seen and examined no acute overnight events, glucose values now well controlled, patient has no acute pain. Blood cultures came back positive as gram-positive cocci in pairs and chains. Sensitivity pending. Patient numbers with no antibiotics WBC trending down. Dr. Duncan plans to take the patient to the OR this afternoon. 09/07 Patient seen and examined, no acute overnight events. Leukocytosis still persistent at 17,000. Blood cultures initially was positive repeat cultures pending. Initial blood culture is gram-positive strep today. Wound culture also growing strep okay. Patient continued with broad-spectrum antibiotics. Dr. Duncan following. PICC line to be placed if the patient is able to clear his bacteremia. 09/08 Seen and examined on rounds. Remained stable. No fevers or chills. Blood cultures preliminarily with group B streptococcus, same organism has been cultured from the foot. No dyspnea, no nausea or vomiting, no abdominal pain, no diarrhea. Tolerating stools. 09/09 Seen and examined. No new complaints. Dressings remain intact. Discussed with Dr. Duncan, he recommended 2 weeks of IV antibiotics for the foot infection. He resected the entire bone that was involved with osteomyelitis, though still had significant soft tissue infection surrounding. Laboratory now reporting enterococcus in addition to strep agalactiae, then later this afternoon probable group B strep as well as now on culture. This was the cultures obtained on Tuesday. Had midline placed for IV antibiotics. 09/10 Seen and examined on rounds, wounds seen during dressing change. Tolerating antibiotics, no GI upset. Cultures now appear finalized with strep agalactiae, enterococcus and a second strep agalactiae (not beta strep as the preliminary report indicated). In reviewing antibiotic choices, currently is well covered with Zosyn, which has similar activity to penicillin against enterococcus. Should also cover streptococcus well. Zosyn is an option for intermittent infusion pump therapy. That may be the most reasonable course, as there is not really an antibiotic with coverage that can be given Qday. He confirmed he could wear the device. I&D was on 09/06, will consider 09/07 day 1 of antibiotics. Now on abx day # 4 of . - Constitutional Vitals: Vital Signs Temp Pulse Resp BP Pulse Ox 97.3 F 71 18 150/94 96 09/10/17 16:00 09/10/17 16:00 09/10/17 16:00 09/10/17 16:00 09/10/17 16:00 Period Temp Pulse Resp BP Sys/Ramírez Pulse Ox Last 24 Hr 97.3 F-98.0 F 64-71 14-18 130-159/60-94 94-96 Intake and Output 09/10/17 09/10/17 09/10/17 05:59 13:59 21:59 Intake Total 200 / 200 600 / 600 240 / 240 Output Total 1200 / 1200 650 / 650 300 / 300 Balance -1000 / -1000 -50 / -50 -60 / -60 General: No acute distress Chest: Clear, unlabored respirations Current vascular: Regular, no murmur Abdomen: Soft, nontender Neuro: Alert, oriented 3 Musculoskeletal: Left lateral foot wound with granulating wound bed, no purulence, bit of slough superiorly. No surrounding erythema on the foot. Suture line is intact. Intake & Output: Intake & Output 09/10/17 09/10/17 09/10/17 05:59 13:59 21:59 Intake Total 200 / 200 600 / 600 240 / 240 Output Total 1200 / 1200 650 / 650 300 / 300 Balance -1000 / -1000 -50 / -50 -60 / -60 Intake: IV 50 / 50 100 / 100 Zosyn 3.375 gm In Dextrose 5% 50 / 50 100 / 100 in Water 50 ml @ 100 mls/hr IV Q6H [facility] Rx#:[id number] Oral 150 / 150 500 / 500 240 / 240 Output: Void Amount 1200 / 1200 650 / 650 300 / 300 Other: Meal Breakfast Dinner Percent of Meal Consumed 75% 100% Feeding Ability Independent Independent Stool Size Moderate Stool Color Brown Stool Consistency Normal for Patient Formed # Voids 1 # Bowel Movements 1 Medical - PN: Obj Da - Labs CBC & Chem 7: 09/10/17 04:05 09/10/17 04:05 Labs: Abnormal Lab Results 09/10/17 09/10/17 09/09/17 04:05 04:05 04:30 WBC RBC 3.69 L Hgb 11.3 L Hct 33.2 L MPV 6.9 L Lymph % (Auto) Gran # Glucose 59 L Uric Acid 2.3 L Calcium Phosphorus 4.7 H Total Protein Albumin 2.9 L 2.8 L Albumin/Globulin Ratio 0.9 L 0.8 L Triglycerides 09/09/17 09/08/17 09/08/17 04:30 08:10 04:30 WBC 11.7 H RBC 3.72 L 3.79 L Hgb 11.3 L 11.6 L Hct 33.6 L 34.4 L MPV 7.3 L 7.1 L Lymph % (Auto) 13.8 L Gran # 8.8 H Glucose 63 L Uric Acid Calcium 8.5 L Phosphorus Total Protein 5.8 L Albumin 2.6 L Albumin/Globulin Ratio 0.8 L Triglycerides 169 H Microbiology 09/05/17 14:20 Blood Culture - Final Blood 09/06/17 12:48 Gram Stain - Final Foot - Left Tissue Culture - Final Strep agalactiae - (group b) Enterococcus species Strep agalactiae - (group b)#2 09/07/17 06:29 Blood Culture - Preliminary Blood 09/07/17 04:30 Blood Culture - Preliminary Blood Meds: Medications Acetaminophen (Tylenol) 650 mg PO Q6HP PRN PRN Reason: PAIN/FEVER > 101 Albuterol Sulfate (Ventolin) 2.5 mg NEB Q2HP PRN PRN Reason: Shortness Of Breath Aspirin (Aspirin) 81 mg PO DAILY [facility] Last Admin: 09/10/17 08:59 Dose: 81 mg Atorvastatin Calcium (Lipitor) 80 mg PO HS [facility] Last Admin: 09/09/17 21:26 Dose: 80 mg Dextrose (Dextrose 50%) 0 ml IV UD PRN PRN Reason: Hypoglycemia Diagnostic Test (Pha) (Accu-Chek) 1 each FS ACHS [facility] Last Admin: 09/10/17 16:45 Dose: 1 each Famotidine (Pepcid) 20 mg PO BID [facility] Last Admin: 09/10/17 08:59 Dose: 20 mg Furosemide (Lasix) 20 mg PO QDAY [facility] Last Admin: 09/10/17 09:00 Dose: 20 mg Glucose (Insta-Glucose) 15 gm PO PRN PRN PRN Reason: Hypoglycemia Heparin Sodium (Porcine) (Heparin) 5,000 unit SQ Q12 [facility] Last Admin: 09/10/17 09:01 Dose: 5,000 unit Heparin Sodium (Porcine) (Heparin Flush) 2 ml IV Q12 [facility] Last Admin: 09/10/17 11:55 Dose: 2 ml Hydromorphone HCl (Dilaudid) 0.5 mg IV Q2HP PRN PRN Reason: PAIN LEVEL > 6 Piperacillin Sod/Tazobactam (Sod 3.375 gm/ Dextrose) 50 mls @ 100 mls/hr IV Q6H [facility] Last Infusion: 09/10/17 12:30 Dose: Infused Insulin Glargine (Lantus) 120 unit SQ HS [facility] Last Admin: 09/09/17 21:29 Dose: 120 unit Insulin Human Lispro (Humalog) 0 unit SQ ACHS [facility] PRN Reason: Protocol Last Admin: 09/10/17 17:18 Dose: 9 unit Isosorbide Mononitrate (Imdur) 30 mg PO QDAY [facility] Last Admin: 09/10/17 09:00 Dose: 30 mg Metoprolol Succinate (Toprol Xl) 100 mg PO BID [facility] Last Admin: 09/10/17 09:00 Dose: 100 mg Ondansetron HCl (Zofran) 4 mg IV Q6HP PRN PRN Reason: Nausea And Vomiting Oxycodone HCl (Roxicodone) 5 mg PO Q4HP PRN PRN Reason: PAIN LEVEL 3-6 Sodium Chloride (Saline Flush) 10 ml IV Q8 [facility] Last Admin: 09/10/17 14:24 Dose: 10 ml Medical - PN: A/P - Time Spent With Patient Total time spent is greater than 50% in coordination of care (as documented) at patient's floor/unit and/or counseling patient: 25 - 35 minutes - Narrative A/P Narrative: 47-year-old male with type 2 diabetes admitted with left foot wound, osteomyelitis of the metatarsal. Status post I&D and resection. Sepsis-resolved Necrotizing Diabetic foot infection with cellulitis-improving. Now polymicrobial with group B strep x2 and enterococcus. Group B strep bacteremia due to foot infection Osteomyelitis, s/p resection of infected 5th metatarsal Diabetes uncontrolled Hypertension Hyperlipidemia History of cardiac arrest status post AICD placement Coronary artery disease Pseudohyponatremia [low sodium secondary to glucose which is elevated] Group B strep bacteremia Plan Saline lock Continue IV pip/tazo, which should cover all pathogens as well as any unreported anaerobes. Surveillance blood cultures remain negative, midline placed for long-term IV access. Plan to treat for 14 days for foot and blood stream infections. Abx D4 /14 Continue ADA diet, current DM regimen. Patient is on 180 units of Lantus at home. we are using 120 units of Lantus for now. If glucose remains high increase dose to 150 qhs Home meds resumed as appropriate. DVT prophylaxis with heparin subcu Medical - PN: Qual - VTE Deep Vein Thrombosis/Pulmonary Embolism Present on Admission: No
[2017-09-10] MEDS: ATORVASTATIN 20 MG TABLET PO SCH (20:59)
[2017-09-10] MEDS: INSULIN GLARGINE, HUMAN 1 UNIT/0.01 ML SQ SCH (21:00)
[2017-09-11] MEDS: PIPERACILLIN SODIUM/TAZOBACTAM 3.375 GM in DEXTROSE 5% IN WATER 50 ML IV SCH ×3 (00:01→11:42)
[2017-09-11] MEDS: 0.9 % SODIUM CHLORIDE 10 ML SYRINGE IV SCH ×2 (00:29→05:50)
[2017-09-11 05:53] LABS: Basophils # (Auto) 0.1 K/mcL (0.0-0.3); Basophils % (Auto) 0.4 % (0.0-2.0); Eosinophils # (Auto) 0.5 K/mcL (0.0-0.7); Eosinophils % (Auto) 4.3 % (0.0-7.0); Granulocytes % (Auto) 76.8 % (38.0-78.0); Lymphocytes # (Auto) 1.3 K/mcL (1.5-4.8); Lymphocytes % (Auto) 10.9 % (15.5-49.0); Mean Cell Volume 90.8 fL (80.0-100.0); Mean Corpuscular HGB Conc 33.3 g/dL (31.0-36.0); Mean Corpuscular Hemoglobin 30.2 pg (26.0-34.0); Monocytes # (Auto) 0.9 K/mcL (0.1-0.9); Monocytes % (Auto) 7.6 % (1.0-12.0); Platelet Count 398 K/mcL (140-440); RBC 4.14 M/mcL (4.50-5.90); Red Cell Distribution Width 14.5 % (11.5-14.5)
[2017-09-11 06:13] LABS: ALT/SGPT 51 U/l (0-40); Albumin 3.4 gm/dL (3.2-5.2); Alkaline Phosphatase 56 U/L (39-117); Bilirubin,Direct < 0.2 mg/dL (0.0-0.3); Blood Urea Nitrogen 11 mg/dl (6-20); Gamma Glutamyl Transpeptidase 25 U/L (8-61); Uric Acid 2.8 mg/dL (2.5-8.0)
[2017-09-11] MEDS: INSULIN LISPRO 1 UNIT/0.01 ML UNIT SQ SCH ×2 (07:22→11:43)
[2017-09-11] MEDS: METOPROLOL SUCCINATE 50 MG TAB.XL.24H PO SCH (09:44)
[2017-09-11] MEDS: HEPARIN 5,000 UNIT/ML VIAL SQ SCH (09:44)
[2017-09-11] MEDS: ASPIRIN 81 MG TAB.CHEW PO SCH (09:44)
[2017-09-11] MEDS: FUROSEMIDE 20 MG TABLET PO SCH (09:44)
[2017-09-11] MEDS: ISOSORBIDE MONONITRATE 30 MG TAB.XL.24H PO SCH (09:44)
[2017-09-11] MEDS: FAMOTIDINE 20 MG TABLET PO SCH (09:44)
--- NOTE | 2017-09-11 13:27 | Discharge Summary ---
Medical - DS: Prov Patient information: Note initiated : 09/11/17 at 1:21 pm Service Date, if different from initiated Date: [] Patient: Faustino Muir 47 y/o M admitted on 09/05/17 for I&D and Amputation of 5th Metatarsal. Date of admission: 09/05/17 17:08 Discharge date: 09/11/17 Primary care physician: Meir Elam Admitting clinician: Portillo Carrera Consults: 09/05/17 16:00 Consult to Physician [CONS] Stat Comment: Consulting Provider: Portillo Carrera Reason For Exam: Physician to Consult 09/05/17 17:19 Consult to Physician [CONS] Stat Comment: Consulting Provider: Misbah Duncan Reason For Exam: Physician to Consult Discharging clinician: Una Rodrigues Medical - DS: Meds - Discharge Medications Prescriptions: oxyCODONE HCL [Roxicodone] 5 mg PO Q4HP PRN #12 tab PRN Reason: Pain Level 3-6 Nrdcwhjlszok-Qaae-Ngfqwhju,Iso [Zosyn 3.375 gm/50 ml Galaxy] 3.375 gm IV Q6 #9 froz.piggy Active and Home Medications: Home Medications aspirin 81 mg tablet,delayed release 81 mg PO QDAY tab 01/09/15 [History Confirmed 09/05/17 Last Taken 09/04/17 16:00] blood-glucose meter kit See Dose Instructions .ROUTE .MEDSUPPLY 01/09/15 [ History Confirmed 09/05/17 Last Taken Unknown] multivitamin tablet 1 tab PO QDAY tab 01/09/15 [History Confirmed 09/05/17 Last Taken 09/05/17 08:00] blood sugar diagnostic strips See Label Instructions .ROUTE .COMPLEX #300 each 12/15/15 [Rx Confirmed 09/05/17 Last Taken 09/05/17 08:00] isosorbide mononitrate ER 30 mg tablet,extended release 24 hr 30 mg PO QDAY 90 Days #90 tab 02/02/16 [History Confirmed 09/05/17 Last Taken 09/04/17 16:00] nitroglycerin 0.4 mg sublingual tablet 0.4 mg SUBLINGUAL Q5-15M PRN 02/02/16 [ History Confirmed 09/05/17 Last Taken Unknown] atorvastatin 80 mg tablet 80 mg PO QDAY #90 tab 08/27/16 [Rx Confirmed 09/05/17 Last Taken 09/04/17 16:00] furosemide 20 mg tablet 20 mg PO QDAY #90 tab 08/27/16 [Rx Confirmed 09/05/17 Last Taken 09/05/17 16:00] metoprolol succinate ER 100 mg tablet,extended release 24 hr 100 mg PO BID #180 tab 08/27/16 [Rx Confirmed 09/05/17 Last Taken 09/05/17 09:00] spironolactone 25 mg tablet 25 mg PO QDAY #90 tab 08/27/16 [Rx Confirmed Last Taken 09/04/17 16:00] valsartan 160 mg tablet 160 mg PO QDAY #90 tab 08/27/16 [Rx Confirmed 09/05/17 Last Taken 09/05/17 09:00] Doxycycline Hyclate [Vibramycin] 100 mg PO BID 09/05/17 [History Confirmed 09/05 Last Taken 09/05/17 09:00] Insulin Glargine,Hum.rec.anlog [Guicho Aguilar] 180 unit SUB-Q DAILY 09/05/17 [ History Confirmed 09/05/17 Last Taken 09/04/17 12:00] Lancets [Advanced Travel Lancets] 0 each .ROUTE .MEDSUPPLY 09/05/17 [History Confirmed 09/05/17 Last Taken 09/05/17 08:00] Pen Needle, Diabetic [Bd Ultra-Fine Pen Needle] 0 dose .ROUTE .MEDSUPPLY [History Confirmed 09/05/17 Last Taken Unknown] diabetic shoes 1 each MISC DAILY 09/05/17 [History Confirmed 09/05/17 Last Taken Unknown] metFORMIN HCL [Metformin HCl ER] 1,000 mg PO DAILY 09/05/17 [History Confirmed 09/05/17 Last Taken 09/04/17 07:00] metFORMIN HCL [Metformin HCl ER] 500 mg PO HS 09/05/17 [History Confirmed Last Taken 09/04/17 16:00] Xxqpipodjpni-Jhyj-Zfhauccc,Iso [Zosyn 3.375 gm/50 ml Galaxy] 3.375 gm IV Q6 #9 froz.piggy 09/11/17 [Rx Last Taken Unknown] Medical - DS: Hosp Hospital course: 09/05 Mr. Muir is a 47 year old Male with history of diabetes, hypertension hyperlipidemia presented to the emergency room after being evaluated by the psychiatric secretary who sent the patient here for evaluation for infected diabetic wound. According to the patient he developed an ulcer on the left foot approximately 5-6 weeks ago, the patient has been under the care of Dr. Duncan since then. He was treated with doxycycline once and the infection got better. The ulcer was debrided by Dr. Meyer a couple weeks ago. The patient since has developed swelling erythema and redness in the left foot. He was seen by Dr. Duncan last Tuesday and it was noted that he possibly had an abscess. He had an I&D done in the office. He was given some antibiotics. The patient was again seen today and it was noted that his infection was getting worse he was therefore sent to the emergency room for further evaluation. The patient admits to have some pain in the left foot throbbing nonradiating worse with activity. It is better with rest. The patient also notes that he may have had some fever and chills last week but none present. Besides this the patient has no other complaints. In the emergency room the patient is afebrile, he has stable vital signs. The patient has leukocytosis with a WBC count of 22. Left lites show sodium of 129 blood glucose is also elevated at 375. The patient is therefore being admitted to the hospital for further management as he has possible sepsis, Dr Duncan will be planning surgery in AM, CT pending. 09/06 She is seen and examined no acute overnight events, glucose values now well controlled, patient has no acute pain. Blood cultures came back positive as gram-positive cocci in pairs and chains. Sensitivity pending. Patient numbers with no antibiotics WBC trending down. Dr. Duncan plans to take the patient to the OR this afternoon. 09/07 Patient seen and examined, no acute overnight events. Leukocytosis still persistent at 17,000. Blood cultures initially was positive repeat cultures pending. Initial blood culture is gram-positive strep today. Wound culture also growing strep. Patient continued with broad-spectrum antibiotics. Dr. Duncan following. PICC line to be placed if the patient is able to clear his bacteremia. 09/08 Seen and examined on rounds. Remained stable. No fevers or chills. Blood cultures preliminarily with group B streptococcus, same organism has been cultured from the foot. No dyspnea, no nausea or vomiting, no abdominal pain, no diarrhea. 09/09 Seen and examined. No new complaints. Dressings remain intact. Discussed with Dr. Duncan, he recommended 2 weeks of IV antibiotics for the foot infection. He resected the entire bone that was involved with osteomyelitis, though still had significant soft tissue infection surrounding. Laboratory now reporting enterococcus in addition to strep agalactiae, then later this afternoon probable group B strep as well as now on culture. This was the cultures obtained on Tuesday. Had midline placed for IV antibiotics. 09/10 Seen and examined on rounds, wounds seen during dressing change. Tolerating antibiotics, no GI upset. Cultures now appear finalized with strep agalactiae, enterococcus and a second strep agalactiae (not beta strep as the preliminary report indicated). In reviewing antibiotic choices, currently is well covered with Zosyn, which has similar activity to penicillin against enterococcus. Should also cover streptococcus well. Zosyn is an option for intermittent infusion pump therapy. That may be the most reasonable course, as there is not really an antibiotic with coverage that can be given Qday. He confirmed he could wear the device. I&D was on 09/06, will consider 09/07 day 1 of antibiotics. Now on abx day # 4 of 14. 09/12 Patient continues to do well. Midline placed as noted, surveillance blood cultures have remained no growth to date. One bottle of his blood cultures grow strep agalactiae, foot culture grew strep agalactiae (2 different colonies ) and enterococcus. Zosyn was chosen to be continued via CADD pump for 14 days of antibiotics to treat for infection as well as streptococcal bacteremia secondary to his foot infection. Today is antibiotic day #5 of 14. Discharge diagnosis: Osteomyelitis and diabetic foot wound Secondary discharge diagnosis: Streptococcus agalactiae bacteremia Type 2 diabetes Coronary artery disease Hyperlipidemia Hypertension Pertinent studies/significant findings: Surgical Pathology MICROSCOPIC DIAGNOSIS BONE, LEFT FIFTH METATARSAL, EXCISION: -- FRACTURE CALLUS WITH LAMELLAR AND WOVEN BONE, DEGENERATIVE CHANGE, HEMORRHAGE, FIBROSIS AND MILD ACUTE/CHRONIC INFLAMMATION. (SEE COMMENT) (ACP:cris) COMMENT: The inflammatory changes are consistent with acute and chronic osteomyelitis. Correlation with radiographic findings and culture is recommended. - Time Spent with Patient Total time spent providing and/or coordinating discharge services: Greater than 30 minutes Medical - DS: Exam - Constitutional Vitals: Vital Signs Temp Pulse Resp BP Pulse Ox 09/11/17 11:37 97.4 F 16 131/68 97 09/11/17 07:15 97.0 F 16 118/78 100 09/11/17 04:00 97.5 F 54 L 16 148/85 96 09/10/17 23:38 97.8 F 63 12 153/88 96 09/10/17 20:00 97.5 F 62 14 153/90 98 09/10/17 16:00 97.3 F 71 18 150/94 96 General: In no acute distress Chest: Respirations unlabored Cardiovascular: Regular Abdomen: Nondistended Musculoskeletal: Left foot wound dressed, dressings intact and dry Medical - DS: Data Procedures and tests throughout hospitalization: Date of procedure: 09/06/17 Pre-op diagnosis: Osteomyelitis left foot fifth metatarsal Post-op diagnosis: same Procedure: Amputation left fifth metatarsal; incision and drainage left foot Grafts/Implants: No Anesthesia: GLMA Complications: none Surgeon: Misbah Duncan Estimated blood loss (cc): 150 Tourniquet Time (Minutes): 0 Specimens Removed/Pathology: other (bone left fifth metatrsal) Condition: stable Disposition: floor Labs on day of discharge: Labs from last 24 hours 09/11/17 09/11/17 05:00 05:00 WBC 12.1 H RBC 4.14 L Hgb 12.5 L Hct 37.5 L MCV 90.8 MCH 30.2 MCHC 33.3 RDW 14.5 Plt Count 398 MPV 7.0 L Gran % 76.8 Lymph % (Auto) 10.9 L Traill % (Auto) 7.6 Eos % (Auto) 4.3 Baso % (Auto) 0.4 Gran # 9.3 H Lymph # (Auto) 1.3 L Traill # (Auto) 0.9 Eos # (Auto) 0.5 Baso # (Auto) 0.1 Sodium 140 Potassium 3.6 Chloride 97 Carbon Dioxide 33 H Anion Gap 10.0 BUN 11 Creatinine 1.0 GFR Calculation 88 Glucose 68 L Uric Acid 2.8 Calcium 9.4 Phosphorus 3.8 Magnesium 1.8 Total Bilirubin 0.4 Direct Bilirubin < 0.2 GGT 25 AST 33 ALT 51 H Alkaline Phosphatase 56 Lactate Dehydrogenase 160 Total Protein 6.9 Albumin 3.4 Globulin 3.5 Albumin/Globulin Ratio 1.0 Triglycerides 141 Preliminary micro results at discharge 09/07/17 06:29 Blood Culture - Preliminary Blood 09/07/17 04:30 Blood Culture - Preliminary Blood 09/05/17 14:11 Blood Culture - Preliminary Blood Gram positive cocci - Impressions CT of foot IMPRESSION: 1. Nonunified old oblique displaced fracture the proximal fifth metatarsal diaphysis. A 16 mm irregular region of resorption about the fracture line is suspicious for complicating osteomyelitis. There is moderate inflammation in the adjacent deep fascia with cellulitis. 2. Moderate size effusion in the ankle mortise with evidence of deep fasciitis - measuring the medial periarticular region of the ankle. 3. Severe hallux valgus, metatarsus abductus and hammertoe deformities first through fifth digits. Medical - DS: A/P - Patient/Caregiver Discharge Instructions Activity: as instructed (touch down weight bearing only on left heel) Diet: Consistent Carbohydrate Prescriptions: Tbggkmyabxba-Jqtl-Vhqfkujp,Iso [Zosyn 3.375 gm/50 ml Galaxy] 3.375 gm IV Q6 #9 froz.piggy Other Amb Orders: Wound Care/Dressings Location: Determined By Patient Wound Care/Dressings Location: Determined By Patient - Follow up Plan Follow up with: Misbah Duncan DPM [Physician] - 09/12/17 2:40 pm Meir Elam MD [Primary Care Provider] - (1-2 weeks) Disposition: Home, Self-Care Prognosis: Fair Rehab Potential: Fair Overall status at discharge: patient is not back to baseline Medical - DS: Qual - VTE Deep Vein Thrombosis/Pulmonary Embolism Present on Admission: No
== END 2017-09-11 02:24 | disposition home or self-care (01) | DRG 987 ==
LOC: ED 13:40 → MEDSUR 17:08
PROVIDERS: ADMIT Internal Medicine; ATTEND Internal Medicine

== ENCOUNTER 2019-09-25 07:43 | Inpatient (IN) ==
[2019-09-25] MEDS ORDERED: IOPAMIDOL 100 ML BOTTLE IV ONE (07:44)
[2019-09-25] MEDS ORDERED: DEXTROSE 50% 50 ML SYRINGE IV ONE ×2 (07:50→10:51)
[2019-09-25] MEDS ORDERED: DEXTROSE 10 % IN WATER 1,000 ML IV SCH (08:15)
--- NOTE | 2019-09-25 08:25 | Emergency Department Note ---
General Adult HPI - General Chief complaint: Blood Sugar Problem Stated complaint: Decreased LOC, Hypoglycemia Time Seen by Provider: 09/25/19 07:59 Source: family, EMS Mode of arrival: EMS Limitations: altered mental status - History of Present Illness HPI Narrative: 49-year-old male is brought in by EMS for low blood sugar. I am unable to get any meaningful history or review of systems from him. All history from EMS. Apparently they were called out on him yesterday and had a blood sugar 28 or so and they gave him an amp of D50. He promptly returned to consciousness and refused transport. When they were called out on him again today at his home they gave him another amp of D50 for similar low blood sugar but he did not come around enough to refuse transfer-it is 59 here after that. He continues to be somnolent and not communicating here. We gave him another amp of D50 and started some D10 IV. He is an insulin dependent diabetic who takes a large amount of Lantus-180 units daily. Apparently he did not take his Lantus last night however. His is concerned about the dose and feels that he has been deteriorating over the last month - Related Data Home Medications Medication Instructions Recorded Confirmed aspirin 81 mg tablet,delayed 81 mg PO DAILY tab 01/09/15 08/13/19 release Previous Rx's Medication Instructions Recorded atorvastatin 80 mg tablet 80 mg PO QDAY #90 tab 08/13/19 blood sugar diagnostic See Rx Instructions .ROUTE 08/13/19 .MEDSUPPLY #50 each furosemide 20 mg tablet 20 mg PO QAM #90 tab 08/13/19 insulin glargine U-300 conc 300 180 unit SUB-Q QDAY #4.5 ml 08/13/19 unit/mL (1.5 mL) subcutaneous pen isosorbide mononitrate 30 mg 30 mg PO QAM #90 tab 08/13/19 tablet,extended release 24 hr lancets 33 gauge See Rx Instructions .ROUTE 08/13/19 .MEDSUPPLY #100 each metformin 500 mg tablet,extended 1,000 mg PO .COMPLEX #180 tab 08/13/19 release 24 hr metoprolol succinate 25 mg 25 mg PO QDAY #90 tab 08/13/19 tablet,extended release 24 hr nitroglycerin 0.4 mg sublingual 0.4 mg SUBLINGUAL ONCE #25 tab 08/13/19 tablet olmesartan 20 mg tablet 20 mg PO QDAY #90 tab 08/13/19 pen needle, diabetic 33 gauge x See Rx Instructions .ROUTE 08/13/19/" .MEDSUPPLY #100 each sitagliptin 25 mg tablet 25 mg PO DAILY #90 tab 08/13/19 spironolactone 25 mg tablet 25 mg PO QDAY #90 tab 08/13/19 Allergies Allergy/AdvReac Type Severity Reaction Status Date / Time No Known Drug Allergies Allergy Verified 08/13/19 07:30 Review of Systems Limitations: ROS unobtainable due to patients medical condition Past Medical History - Past Medical History [facility] Narrative: Family History (Last Reviewed 08/13/19 @ 07:27 by Praveena Allen CMA) Father Type 2 diabetes mellitus Arthritis Hypertension Mother Obesity Medical History (Last Reviewed 08/13/19 @ 07:27 by Praveena Allen CMA) Loss of appetite (Chronic) Corns and callus (Chronic) Skin change (Chronic) Change in nail appearance (Chronic) Hair changes (Chronic) Foot ulcer, left (Chronic) Numbness and tingling (Chronic) Charcot's joint of left foot (Chronic) History of osteomyelitis (Chronic) Hypotension, unspecified (Chronic) Polydipsia (Chronic) Intermittent claudication (Chronic) Paralysis (Chronic) Abnormal gait (Chronic) Paronychia (Chronic) Nail dystrophy (Chronic) Flu-like symptoms (Chronic) Polyuria (Chronic) Shortness of breath (Chronic) Cough (Chronic) Painful urination (Chronic) Loss of protective sensation of skin of foot (Chronic) Swelling of lower extremity (Chronic) Neuropathic pain (Chronic) Pressure ulcer of ankle (Chronic) Left lateral ankle pain (Chronic) Metabolic Syndrome X (Chronic) Ventricular fibrillation (Chronic) Cardiac arrest (Chronic) Weight gain (Chronic 05/17/13) Tobacco abuse (Chronic 01/26/13) Acute thrombus of left ventricle (Chronic) Pleural effusion (Chronic) Peripheral neuropathy (Chronic) Obesity (Chronic) Mitral regurgitation (Chronic) Metabolic syndrome (Chronic) Hypertension (Chronic) Hyperlipidemia (Chronic 02/11/13) Leg edema (Chronic 05/17/13) Diabetes mellitus (Chronic) Dental caries (Chronic 01/23/13) Congestive heart failure (CHF) (Chronic 04/08/14) Cardiomyopathy (Chronic) Cardiomegaly (Chronic) Alcohol abuse (Chronic) Cardiac arrest with ventricular fibrillation (Chronic 01/25/16) Encounter for change or removal of surgical wound dressing (Chronic) Past Surgical History (Last Reviewed 08/13/19 @ 07:27 by Praveena Allen CMA) History of appendectomy (Chronic) Cardiac defibrillator in place (Chronic) History of left heart catheterization (Chronic) S/P foot surgery, left (Chronic) S/P foot surgery, right (Chronic) Source: old records reviewed Surgical history ED: Reports: appendectomy, other (Foot surgery, defibrillator, cardiac catheterization) - Social History smoking status: Smokeless tobacco Alcohol use: Reports: Rarely Drug use: Reports: none Physical Exam Overweight male no acute distress resting. Somnolent and unarousable-obtunded. He is however breathing on his own with an adequate pulse. He does not awaken to sternal rub but does move around and open his eyes occasionally spontaneously Normocephalic atraumatic. Conjunctive are clear sclera white nonicteric. Pupils are equal and reactive bilaterally. No nasal discharge or congestion. His lips are somewhat dry and cracked with some crusty saliva on them. Neck is supple without lymphadenopathy or thyromegaly. Heart is regular rate and rhythm no murmurs appreciated. Lungs are clear to auscultation bilaterally without wheezes rales rhonchi or respiratory distress. Abdomen is soft nontender nondistended. Trace to +1 pedal edema Limitations: no limitations Course Vital Signs Pulse Rate 79 09/25/19 07:45 Respiratory Rate 20 09/25/19 07:45 Pulse Rate 79 09/25/19 07:45 Respiratory Rate 20 09/25/19 07:45 Medical Decision Making - Lab Data Result diagrams: 09/25/19 07:55 09/25/19 07:55 - Radiology Data Radiology results reviewed: Yes I reviewed the patient's radiology results. Chest x-ray shows possible subtle infiltrates. Read out pending - EKG Data EKG #1 EKG attestation: Yes I reviewed and interpreted this EKG., Yes There are no EKG findings of acute coronary syndrome EKG results narrative: EKG shows sinus tachycardia with ventricular bigeminy. Old fascicular block. Disposition Pt seen by [employer]PERVISOR/PA only: No Clinical Impression: Hypoglycemia Altered mental status Qualifiers: Altered mental status type: stupor Qualified Code(s): R40.1 - Stupor Summary: Hypoglycemia unclear cause. Started D10 IV and work-up with chest x-ray and laboratory. Ordered CT scan of head as well without contrast Chest x-ray is pending read out Case will be handed off to Dr. Kaye at shift change for further evaluation and management Disposition: Still a Patient Condition: Serious Referrals: Uriah Mcclelland DO [Primary Care Provider] -
[2019-09-25 08:35] LABS: POC INR 1.3 (0.9-1.2); POC Pro Time 15.3 sec (11.9-14.5)
--- NOTE | 2019-09-25 08:42 | XRay Report ---
HISTORY: Decreased level of consciousness, hypoglycemia FINDINGS: The heart is moderately enlarged. There is a vague haziness in the lung parenchyma around the right hilum and in the right lower lobe. This could be congestive heart failure or pneumonia. Lung volume is normal. There is no lobar consolidation or pleural effusion. There is an electrode overlying the right side of the heart. The power pack is in the left lateral chest wall near the diaphragm. There are several old healed anterolateral left-sided rib fractures. Comparison with the prior chest x-ray done in 2013 shows the heart is larger and the mild infiltrate in the right lung is new. IMPRESSION: Moderate cardiomegaly Possible mild pneumonia or asymmetric distribution of congestive heart failure involving the right lung Interpreted and Authenticated by: Surendra Shrestha 09/25/19
[2019-09-25 08:43] LABS: Basophils # (Auto) 0.02 K/mcL (0.00-0.30); Basophils % (Auto) 0.2 % (0.0-2.0); Eosinophils # (Auto) 0 K/mcL (0.00-0.70); Eosinophils % (Auto) 0 % (0.0-7.0); Granulocytes % (Auto) 85.2 % (38.0-78.0); Hematocrit 48.4 % (40.1-51.0); Hemoglobin 15.8 g/dL (13.7-17.5); Lymphocytes # (Auto) 0.75 K/mcL (1.50-4.80); Lymphocytes % (Auto) 8.3 % (15.5-49.0); Mean Cell Volume 94.9 fL (80.0-100.0); Mean Corpuscular HGB Conc 32.6 g/dL (31.0-36.0); Mean Platelet Volume 10.9 fL (7.4-10.4); Monocytes # (Auto) 0.57 K/mcL (0.10-0.90); Monocytes % (Auto) 6.3 % (1.0-12.0); Platelet Count 190 K/mcL (140-440); Red Cell Distribution Width 15.7 % (11.5-14.5)
[2019-09-25 09:01] LABS: ALT/SGPT 17 U/l (0-40); AST/SGOT 28 U/l (0-37); Albumin 3.8 gm/dL (3.2-5.2); Albumin/Globulin Ratio 1.3 (1.0-2.3); Alkaline Phosphatase 60 U/L (39-117); Bilirubin,Total 0.7 mg/dL (0.0-1.0); Blood Urea Nitrogen 25 mg/dl (6-20); Calcium 9.3 mg/dl (8.6-10.4); Carbon Dioxide 23 mmol/L (22-30); Chloride 101 mmol/L (96-108); Glomerular Filtration Rate 70; Glucose 61 mg/dL (70-105)
--- NOTE | 2019-09-25 09:02 | Cat Scan Report ---
History: Altered mental status and hypoglycemia TECHNIQUE: The brain was imaged without contrast at 2.5 mm intervals. The radiation exposure was limited using dose reduction technology. FINDINGS: There is an ill-defined zone of decreased attenuation in the right side perez radiata above the basal ganglia. Measures roughly 1 x 1.5 cm in size. This may be an acute evolving infarct. There is no associated hemorrhage. Anterior to this there is a 4 x 5 mm older lacunar infarct. There is also a 5 x 6 mm lacunar infarct with encephalomalacia in the head of the right caudate nucleus. A small cortical infarct is present superiorly in the right frontal lobe which measures approximately 5 x 9 mm. No infarct is seen in the left hemisphere. The brainstem and cerebellum and remainder of the basal ganglia appear normal. Ventricles are mildly prominent.. There is relatively little atrophy. No abnormal extra-axial fluid collection is present. Patient has mild bilateral ethmoid and sphenoid sinusitis. IMPRESSION: Acute infarct in the right perez radiata with small old infarcts in the right caudate nucleus and right frontal lobe Dr. Hines was called with the results Interpreted and Authenticated by: Surendra Shrestha 09/25/19
[2019-09-25] MEDS ORDERED: LORazepam 2 MG/ML VIAL IV ONE (09:53)
--- NOTE | 2019-09-25 11:05 | Cat Scan Report ---
History: Acute infarct in the right perez radiata Technique: Following injection of intravenous nonionic contrast the patient was scanned during arterial phase of the neck and brain. Sagittal and coronal reformats were created separately of both the head and neck. The radiation exposure was limited using dose reduction technology. FINDINGS: NECK: Patient has a moderate size layering right-sided pleural effusion. The aortic arch is normal in caliber. Small amount of mixed plaque along the wall of the arch and at the origin of the left subclavian artery. There is no aneurysm or dissection. There is a moderate amount calcified plaque at the origins of both vertebral arteries. This may be creating a greater than 50% stenosis origin right vertebral and less than 50% stenosis at the origin left vertebral. Distal to their origins the vertebral arteries are normal in caliber. The left side is dominant. Innominate artery is normal. Common carotids are normal in caliber. There is a moderate amount of calcified plaque in the carotid bifurcations bilaterally. There is greater involvement in the right side than left. This is creating close to a 50% stenosis at the origin of the right internal carotid and less than 33% stenosis at the origin left internal carotid. Distal to their origins, the internal carotids are normal both sides the neck. There is no soft tissue mass or enlarged lymph nodes in the neck. Patient does have moderate degenerative disc disease and arthritis at C5-6 with milder arthritis and disc degeneration at C3-4 and C4-5. Brain: There are scattered plaques in the cavernous portions of both internal carotids. These are not causing hemodynamically significant stenosis. Anterior and middle cerebral arteries are normal in caliber. Intracranial portions of both vertebral arteries are normal. Left side is dominant. The basilar artery and posterior fossa circulation are normal. Anterior and posterior to indicating arteries are patent. There is no evidence of intracranial vascular occlusion or stenosis. No thrombus is seen. There is no enhancing lesion or intracranial vascular malformation. The infarct in the right perez radiata was better demonstrated on the preceding unenhanced head CT. Patient has mild sinus disease involving the ethmoids, maxillary and sphenoid sinuses. IMPRESSION: Moderate atherosclerotic disease in the carotid bifurcations creating less than 50% stenoses, right side worse than left at the origins of the internal carotids. Normal intracranial arterial circulation Layering right-sided pleural effusion Dr. Kaye was called with the results Interpreted and Authenticated by: Surendra Shrestha 09/25/19
--- NOTE | 2019-09-25 11:34 | Emergency Department Note ---
General Adult HPI - General Chief complaint: Blood Sugar Problem Stated complaint: Decreased LOC, Hypoglycemia Time Seen by Provider: 09/25/19 07:59 Source: family, EMS Mode of arrival: EMS Limitations: altered mental status - History of Present Illness HPI Narrative: See dictated history and physical by Dr. Hines. I am assuming care of patient after change in shift. The following history was obtained from patient's Sandy, around 9:25 AM. Report is that he went to bed around 8:30 PM with normal movement and speaking. His blood sugar was reported to her by him as 168. She indicates that she advised him not to take any of his insulin (Toujeo) because of multiple low blood sugars over the past several weeks and he has been decreasing his dose from 180 daily down to 160 and then more recently 130. She does not believe he took his insulin last night. However he presented with again confused and weak and was found to have a low blood sugar with EMS arriving and was given an amp of D50 and transported here. Blood sugar here was 59. She reports he has had multiple episodes with shaky, feeling distress, felt bad, and this is been over the last even month. She also reports that he has been coughing for several months including back to April or March. He has been on several different antibiotics. 2 to 3 months ago he was treated as well as recently on linezolid 630 mg but he is only been taking it once a day instead of twice a day. This was prescribed on August [address] Mcclelland. She reports that he had a living well about 3-1/2 years ago and he does not want to be on a ventilator or prolonged major interventions or heroics. The day before yesterday he was found on the floor and stated to her that he thought he might of had a stroke but he also had low blood sugars near this time and so it is uncertain which was the cause of her problem. She describes him as poorly compliant with his medication, self administers his own medications. Does have a history of atrial fibrillation in the past. At times he is actually appeared ashen. - Related Data Home Medications Medication Instructions Recorded Confirmed aspirin 81 mg tablet,delayed 81 mg PO DAILY tab 01/09/15 08/13/19 release Previous Rx's Medication Instructions Recorded atorvastatin 80 mg tablet 80 mg PO QDAY #90 tab 08/13/19 blood sugar diagnostic See Rx Instructions .ROUTE 08/13/19 .MEDSUPPLY #50 each furosemide 20 mg tablet 20 mg PO QAM #90 tab 08/13/19 insulin glargine U-300 conc 300 180 unit SUB-Q QDAY #4.5 ml 08/13/19 unit/mL (1.5 mL) subcutaneous pen isosorbide mononitrate 30 mg 30 mg PO QAM #90 tab 08/13/19 tablet,extended release 24 hr lancets 33 gauge See Rx Instructions .ROUTE 08/13/19 .MEDSUPPLY #100 each metformin 500 mg tablet,extended 1,000 mg PO .COMPLEX #180 tab 08/13/19 release 24 hr metoprolol succinate 25 mg 25 mg PO QDAY #90 tab 08/13/19 tablet,extended release 24 hr nitroglycerin 0.4 mg sublingual 0.4 mg SUBLINGUAL ONCE #25 tab 08/13/19 tablet olmesartan 20 mg tablet 20 mg PO QDAY #90 tab 08/13/19 pen needle, diabetic 33 gauge x See Rx Instructions .ROUTE 08/13/19/" .MEDSUPPLY #100 each sitagliptin 25 mg tablet 25 mg PO DAILY #90 tab 08/13/19 spironolactone 25 mg tablet 25 mg PO QDAY #90 tab 08/13/19 Allergies Allergy/AdvReac Type Severity Reaction Status Date / Time No Known Drug Allergies Allergy Verified 08/13/19 07:30 Past Medical History - Past Medical History [facility] Narrative: Morbid obesity Medical History (Last Updated 09/25/19 @ 12:28 by Lester Kaye DO) Right ankle pain (Chronic) Right foot pain (Chronic) Charcot's joint of foot (Chronic) Diabetic ulcer of foot associated with diabetes mellitus due to underlying condition, limited to breakdown of skin (Chronic) Decubitus ulcer, infected (Chronic) Cellulitis of left foot (Chronic) Dysphagia (Chronic) Cardiac arrest with ventricular fibrillation (Chronic 01/25/16) Hyperlipidemia (Chronic 02/11/13) Hypertension (Chronic) Mitral regurgitation (Chronic) Obesity (Chronic) Cardiomyopathy (Chronic) Cardiomegaly (Chronic) Congestive heart failure (CHF) (Chronic 04/08/14) Metabolic syndrome (Chronic) Diabetes mellitus (Chronic) Cardiac arrest (Chronic) Ventricular fibrillation (Chronic) Metabolic Syndrome X (Chronic) Obesity (BMI 30-39.9) (Chronic) Corns and callus (Chronic) Foot ulcer, left (Resolved) Numbness and tingling (Chronic) Charcot's joint of left foot (Chronic) History of osteomyelitis (Chronic) Hypotension, unspecified (Chronic) Polydipsia (Chronic) Intermittent claudication (Chronic) Paralysis (Chronic) Abnormal gait (Chronic) Polyuria (Chronic) Shortness of breath (Chronic) Cough (Chronic) Painful urination (Chronic) Loss of protective sensation of skin of foot (Chronic) Swelling of lower extremity (Chronic) Neuropathic pain (Chronic) Pressure ulcer of ankle (Chronic) Left lateral ankle pain (Chronic) Weight gain (Chronic 05/17/13) Tobacco abuse (Chronic 01/26/13) Acute thrombus of left ventricle (Chronic) Pleural effusion (Chronic) Peripheral neuropathy (Chronic) Leg edema (Chronic 05/17/13) Dental caries (Chronic 01/23/13) Alcohol abuse (Chronic) Encounter for change or removal of surgical wound dressing (Chronic) Past Surgical History (Last Updated 09/25/19 @ 11:12 by Lester Kaye DO) Cardiac defibrillator in place (Chronic) History of appendectomy (Chronic) History of left heart catheterization (Chronic) S/P foot surgery, left (Chronic) S/P foot surgery, right (Chronic) Family History (Last Reviewed 08/13/19 @ 07:27 by Praveena Allen CMA) Father Type 2 diabetes mellitus Arthritis Hypertension Mother Obesity Surgical history ED: Reports: appendectomy, other (Foot surgery, defibrillator, cardiac catheterization) - Social History smoking status: Smokeless tobacco Alcohol use: Reports: Rarely Drug use: Reports: none Physical Exam Limitations: altered mental status, physical limitation General appearance: in no apparent distress, nontoxic, other (Makes eye contact but does not speak.) Head: atraumatic, normocephalic Eye: Present: PERRL, EOMI. Absent: scleral icterus, conjunctival injection ENT: Present: mucous membranes moist Chest: Present: symmetric chest wall rise Respiratory: Present: normal lung sounds bilaterally. Absent: respiratory distress, wheezes, stridor, accessory muscle use, prolonged expiratory phase Cardiovascular: Present: regular rate, normal rhythm. Absent: systolic murmur, diastolic murmur Abdominal: Present: soft. Absent: distention, tenderness, guarding, rebound, rigidity, organomegaly, mass Extremities: Absent: pedal edema, pretibial edema, calf tenderness, cyanosis, clubbing Neurological: Present: other (Unable to assess cerebellar function and sensory due to inability to respond. Only verbal response was his name when asked. He was not able to form other words.) Speech: Present: total aphasia (Or nearly total.) Cranial nerves: EOM function (II, III, IV, ): Normal, facial sensation (V): Normal (But unable to fully assess.), facial palsy (VII): Normal, tongue deviation (XII): Normal (Was able to stick his tongue partially out on command.) Motor strength - LUE: 4/5 Motor strength - RUE: 4/5 Motor strength - LLE: 4/5 Motor strength - RLE: 4/5 Psychiatric: Present: normal affect, serious, other (Is able to make eye contact but hardly responds.) Skin: Present: warm, dry Course Vital Signs Temperature 97.8 F 09/25/19 07:45 Pulse Rate 79 09/25/19 07:45 Respiratory Rate 20 09/25/19 07:45 Blood Pressure 155/89 09/25/19 07:45 Pulse Oximetry (%) 100 09/25/19 07:45 Temperature 97.8 F 09/25/19 07:45 Pulse Rate 59 L 09/25/19 13:42 Respiratory Rate 18 09/25/19 13:42 Blood Pressure 149/118 09/25/19 13:31 Pulse Oximetry (%) 100 09/25/19 13:42 Medical Decision Making - [facility] Narrative Medical decision making narrative: 9:20 AM approximately - I am excepting care of patient after change in shift. Patient examined after donning full respiratory PPE including face shield. Patient unable to respond well to commands but does some commands but others does not. The only word he says is his name, Long, when asked what his naem is. He is unable to comprehend or how to perform limited additional movements such as his heel up and down his opposite de [place] ve[place]. No asymmetric neurologic findings. Speech seems to be impaired but his vision seems to be focusing on my face. Blood sugars remain a bit low and an increase in his D10W was ordered. CT demonstrates a new infarction of about 1 cm at or around the right caudate nucleus and right frontal area near the basal ganglia. This is a brand new finding this AM. I will seek consultation with the tele-stroke neurologist. 9:48 AM - I spoke with tele-stroke neurologist, Dr. Mcfadden, who indicates that her review of the CT scan does not explain the unilateral findings and patient is not a TPA candidate. She wonders about seizures and recommends 1 mg of lorazepam and going ahead with CT angios of the head and neck which has already been ordered. 11:01 AM - CT angiogram of the head and neck per radiologist includes no clot formation. There is moderate plaque mostly firm. There is also layering right pleural effusion that is moderate and some moderate cardiomegaly. Patient was eventually given another amp of dextrose and the rate was further increased because of blood sugar still dipping under 80. 11:16 AM - again I spoke with tele-stroke neurologist and she reports no obvious additional findings. And that MRI would be recommended as well as aspirin and permissive hypertension up to a systolic of 220 during the first 24 hours. 12:30 AM - I spoke with patient's again, Sandy, who indicates that if p atient is to be transferred would recommend or prefer [facility] instead of [facility]. 1:30 PM - I spoke with hospitalist, Dr. Wilfred Bustamante, who is willing to accept patient. ABG ordered to make sure that there was no CO2 retention, check further for hypoxia, etc. ABG did not demonstrate hypoxia. 2:40 PM - patient visualized sitting up and making eye contact and waves back at me. I am able to speak him with conversation through the open door. He is able to carry on some conversation but has some long pauses after certain questions. He recognizes that I am a doctor. He does not answer as to where exactly he is. He admits that he recognizes that his brain was not working well and doing better now. He is able to identify his and her name Sandy. This is significantly changed. He denies any narcotics and she denies that he has any access to any narcotics that she is aware of. - Lab Data Result diagrams: 09/25/19 07:55 09/25/19 07:55 Lab Results 09/25/19 09/25/19 09/25/19 Range/Units 07:55 07:55 08:13 WBC 9.0 (4.50-11.00) K/mcL RBC 5.10 (4.63-6.08) M/mcL Hgb 15.8 (13.7-17.5) g/dL Hct 48.4 (40.1-51.0) % MCV 94.9 (80.0-100.0) fL MCH 31.0 (26.0-34.0) pg MCHC 32.6 (31.0-36.0) g/dL RDW 15.7 H (11.5-14.5) % Plt Count 190 (140-440) K/mcL MPV 10.9 H (7.4-10.4) fL Gran % 85.2 H (38.0-78.0) % Lymph % (Auto) 8.3 L (15.5-49.0) % Jones % (Auto) 6.3 (1.0-12.0) % Eos % (Auto) 0 (0.0-7.0) % Baso % (Auto) 0.2 (0.0-2.0) % Gran # 7.65 (1.80-8.00) K/mcL Lymph # (Auto) 0.75 L (1.50-4.80) K/mcL Jones # (Auto) 0.57 (0.10-0.90) K/mcL Eos # (Auto) 0 (0.00-0.70) K/mcL Baso # (Auto) 0.02 (0.00-0.30) K/mcL POC PT 15.3 H (11.9-14.5) sec POC INR 1.3 H (0.9-1.2) Sodium 138 (133-145) mmol/L Potassium 4.5 (3.3-5.1) mmol/L Chloride 101 (96-108) mmol/L Carbon Dioxide 23 (22-30) mmol/L Anion Gap 14.0 (8-16) BUN 25 H (6-20) mg/dl Creatinine 1.2 (0.7-1.2) mg/dl GFR Calculation 70 Glucose 61 L (70-105) mg/dL Calcium 9.3 (8.6-10.4) mg/dl Total Bilirubin 0.7 (0.0-1.0) mg/dL AST 28 (0-37) U/l ALT 17 (0-40) U/l Alkaline Phosphatase 60 (39-117) U/L Total Protein 6.8 (5.9-8.4) gm/dL Albumin 3.8 (3.2-5.2) gm/dL Globulin 3.0 (2.2-3.7) gm/dL Albumin/Globulin Ratio 1.3 (1.0-2.3) Disposition Pt seen by [facility] only: No Clinical Impression: Hypoglycemia, Right-sided cerebrovascular accident (CVA) Altered mental status Qualifiers: Altered mental status type: stupor Qualified Code(s): R40.1 - Stupor Summary: Markedly persisting hypoglycemia. CVA and significant altered mental status changes. See above time course. Disposition: Xfer As Inpt ([facility]) Condition: Serious Referrals: Uriah Mcclelland DO [Primary Care Provider] -
[2019-09-25] MEDS ORDERED: CLOPIDOGREL 75 MG TABLET PO ONE (14:28)
[2019-09-25] MEDS ORDERED: ASPIRIN 81 MG TAB.CHEW CHEWED ONE (14:29)
--- NOTE | 2019-09-25 14:30 | Internal Med History&Physical ---
Medical - H&P: HPI Patient information: Note initiated : 09/25/19 at 2:21 pm Service Date, if different from initiated Date: [] Patient: Faustino Muir a 49 y/o M admitted on for Decreased LOC, Hypoglycemia. Chief Complaint: [] History of present illness: Mr. Muir is a 49 year old M Who his called 911 because the patient was poorly responsive. Sounds like he was brought in yesterday for the same thing and found to have low blood sugars. Biopsy record of it. Blood sugars were 47 when he arrived and he did have some response to D50 amp bring her sugars up to 120 with improved mentation although poor still. Quite lethargic. He is on a D10 drip and is received several amps of D50. yesterday his insulin was cut back from 180-160. Enough he had much to eat last night does not sound like he did. describes him as poorly compliant with his medication he does administer his own. Does have a history of ventricular fibrillation has an AICD in place. EKG was sinus and bigeminal pattern. Work-up included a CT of the brain which showed a new infarct right perez radiata also demonstrated old infarct in the right caudate and right frontal lobe. Case was discussed with stroke neurology said patient not a TPA candidate. CTA head and neck done is unremarkable for anything significant. Patient is on aspirin at home. ABG poa2 did not correlate with the pulse ox, with a reading of 59. However nursing does report appears to have sleep apnea, manifesting when he is sleeping in a suspect this is the cause of the low oxygen. Does have an effusion on the right. Patient does not remember a whole lot. Seems lasting remembers is waking up in the ED. Review of Systems: Pertinent positives as above. Denies headache/fever/chills/nausea/vomiting/chest or abdominal pain/cough/dyspnea/tammie rrhea. Remaining 10 point review of system reviewed negative Medical - H&P: PMH Medical history: Medical History (Last Updated 09/25/19 @ 12:28 by Lester Kaye DO) Right ankle pain (Chronic) Right foot pain (Chronic) Charcot's joint of foot (Chronic) Diabetic ulcer of foot associated with diabetes mellitus due to underlying con dition, limited to breakdown of skin (Chronic) Decubitus ulcer, infected (Chronic) Cellulitis of left foot (Chronic) Dysphagia (Chronic) Cardiac arrest with ventricular fibrillation (Chronic 01/25/16) Hyperlipidemia (Chronic 02/11/13) Hypertension (Chronic) Mitral regurgitation (Chronic) Obesity (Chronic) Cardiomyopathy (Chronic) Cardiomegaly (Chronic) Congestive heart failure (CHF) (Chronic 04/08/14) Metabolic syndrome (Chronic) Diabetes mellitus (Chronic) Cardiac arrest (Chronic) Ventricular fibrillation (Chronic) Metabolic Syndrome X (Chronic) Obesity (BMI 30-39.9) (Chronic) Corns and callus (Chronic) Foot ulcer, left (Resolved) Numbness and tingling (Chronic) Charcot's joint of left foot (Chronic) History of osteomyelitis (Chronic) Hypotension, unspecified (Chronic) Polydipsia (Chronic) Intermittent claudication (Chronic) Paralysis (Chronic) Abnormal gait (Chronic) Polyuria (Chronic) Shortness of breath (Chronic) Cough (Chronic) Painful urination (Chronic) Loss of protective sensation of skin of foot (Chronic) Swelling of lower extremity (Chronic) Neuropathic pain (Chronic) Pressure ulcer of ankle (Chronic) Left lateral ankle pain (Chronic) Weight gain (Chronic 05/17/13) Tobacco abuse (Chronic 01/26/13) Acute thrombus of left ventricle (Chronic) Pleural effusion (Chronic) Peripheral neuropathy (Chronic) Leg edema (Chronic 05/17/13) Dental caries (Chronic 01/23/13) Alcohol abuse (Chronic) Encounter for change or removal of surgical wound dressing (Chronic) Social History (Last Updated 08/13/19 @ 08:47 by Uriah Mcclelland DO) Chewing tobacco Rare alcohol Lives with his at home Family History (Last Reviewed 08/13/19 @ 07:27 by Praveena Allen CMA) Father Type 2 diabetes mellitus Arthritis Hypertension Mother Obesity Past Surgical History (Last Updated 09/25/19 @ 11:12 by Lester Kaye DO) Cardiac defibrillator in place (Chronic) History of appendectomy (Chronic) History of left heart catheterization (Chronic) S/P foot surgery, left (Chronic) S/P foot surgery, right (Chronic) Medical - H&P: Meds Home Medications Medication Instructions Recorded Confirmed Type aspirin 81 mg tablet,delayed 81 mg PO DAILY tab 01/09/15 08/13/19 History release atorvastatin 80 mg tablet 80 mg PO QDAY #90 tab 08/13/19 08/13/19 Rx blood sugar diagnostic See Rx Instructions .ROUTE 08/13/19 08/13/19 Rx .MEDSUPPLY #50 each furosemide 20 mg tablet 20 mg PO QAM #90 tab 08/13/19 08/13/19 Rx insulin glargine U-300 conc 300 180 unit SUB-Q QDAY #4.5 ml 08/13/19 08/13/19 Rx unit/mL (1.5 mL) subcutaneous pen isosorbide mononitrate 30 mg 30 mg PO QAM #90 tab 08/13/19 08/13/19 Rx tablet,extended release 24 hr lancets 33 gauge See Rx Instructions .ROUTE 08/13/19 08/13/19 Rx .MEDSUPPLY #100 each metformin 500 mg tablet,extended 1,000 mg PO .COMPLEX #180 tab 08/13/19 08/13/19 Rx release 24 hr metoprolol succinate 25 mg 25 mg PO QDAY #90 tab 08/13/19 08/13/19 Rx tablet,extended release 24 hr nitroglycerin 0.4 mg sublingual 0.4 mg SUBLINGUAL ONCE #25 tab 08/13/19 08/13/19 Rx tablet olmesartan 20 mg tablet 20 mg PO QDAY #90 tab 08/13/19 08/13/19 Rx pen needle, diabetic 33 gauge x See Rx Instructions .ROUTE 08/13/19 08/13/19 Rx 1/4" .MEDSUPPLY #100 each sitagliptin 25 mg tablet 25 mg PO DAILY #90 tab 08/13/19 08/13/19 Rx spironolactone 25 mg tablet 25 mg PO QDAY #90 tab 08/13/19 08/13/19 Rx Allergies Allergy/AdvReac Type Severity Reaction Status Date / Time No Known Drug Allergies Allergy Verified 08/13/19 07:30 Medical - H&P: Exam - Constitutional Vitals: Temp Pulse Resp BP Pulse Ox 97.8 F 59 L 18 149/118 100 09/25/19 07:45 09/25/19 13:42 09/25/19 13:42 09/25/19 13:31 09/25/19 13:42 Exam: General: Awake but drowsy, No acute Distress, obese Eyes/N/T: EOMI, PERRL, dry MM Head/Neck: neck supple, normocephalic atraumatic CV: Tacky but regular, no murmurs, normal s1/s2 Pulm: Diminished b/l, no wheezing Abd: soft, nontender, +BS x4 Ext: no clubbing/cyanosis/edema Neuro: drowsy will awaken to voice. Moves all extremities and follows all commands. Strength appears symmetrical bilateral upper and lower sensations appear to be intact, face symmetrical and no pronator drift. Speech seems fairly clear but very slow to express himself and sometimes has to pause and think for some time. Ran into "hospital and year but not oriented to president and states and could not tell me where he was born and raised. skin: warm/dry Medical - H&P: Reslt - Labs CBC & Chem 7: 09/25/19 07:55 09/25/19 07:55 Labs: Short CBC 09/25/19 Range/Units 07:55 WBC 9.0 (4.50-11.00) K/mcL Hgb 15.8 (13.7-17.5) g/dL Hct 48.4 (40.1-51.0) % Plt Count 190 (140-440) K/mcL BMP 09/25/19 07:55 Sodium 138 Potassium 4.5 Chloride 101 Carbon Dioxide 23 BUN 25 H Creatinine 1.2 Glucose 61 L Calcium 9.3 Liver Function 09/25/19 Range/Units 07:55 Total Bilirubin 0.7 (0.0-1.0) mg/dL AST 28 (0-37) U/l ALT 17 (0-40) U/l Alkaline Phosphatase 60 (39-117) U/L Albumin 3.8 (3.2-5.2) gm/dL Medical - H&P: A/P - Narrative A/P Narrative: A: *Acute CVA right perez radiata (h/o cva): Failed aspirin -CT also showing old infarcts right caudate nucleus and frontal lobe -carotids no sig stenosis *Hypoglycemia (h/o DM): On metformin and insulin 180 units daily -on d10 gtt in ED *Encephalopathy: 2/2 above *Right pleural effusion: *Likely SENA: Habitus consistent and witnessed apnea while sleeping per staff, history of snoring and fatigue *Obesity: *CAD: *Cardiomyopathy w/AICD: *Chronic cough: possible gerd, Trial of PPI * P: -Permissive hypertension for 24 to 48 hours -Failed aspirin, will start Plavix -Continue statin -Echo pending -Wean off D10 drip with frequent Accu-Cheks -Insulin held for now as well as metformin -PPI trial -IVF's - -ST -pt/ot -f/u with Pulm for sleep study -ppx: Lovenox: Full code
[2019-09-25] MEDS ORDERED: 0.9 % SODIUM CHLORIDE 500 ML IV ONE (14:41)
[2019-09-25] MEDS ORDERED: 0.9 % SODIUM CHLORIDE 1,000 ML IV ONE ×2 (14:41→15:47)
[2019-09-25] MEDS ORDERED: POTASSIUM CHLORIDE 20 MEQ TABLET PO PRN ×2 (15:47)
[2019-09-25] MEDS ORDERED: ONDANSETRON 4 MG/2 ML VIAL IV PRN (15:47)
[2019-09-25] MEDS ORDERED: SENNOSIDES 1 TABLET PO PRN (15:47)
[2019-09-25] MEDS ORDERED: POTASSIUM CHLORIDE 40 MEQ in DEXTROSE 5% IN WATER 500 ML IV PRN (15:47)
[2019-09-25] MEDS ORDERED: IPRATROPIUM/ALBUTEROL 3 ML AMPUL.NEB NEB PRN (15:47)
[2019-09-25] MEDS ORDERED: MAGNESIUM SULFATE 2 GM/50 ML BAG IV PRN (15:47)
[2019-09-25] MEDS ORDERED: ACETAMINOPHEN 325 MG TABLET PO PRN (15:47)
[2019-09-25] MEDS ORDERED: POLYETHYLENE GLYCOL 3350 17 GM PACKET PO PRN (15:47)
[2019-09-25] MEDS ORDERED: DEXTROSE 31 GM ORAL.SUSP PO PRN (15:47)
[2019-09-25] MEDS: DEXTROSE 10 % IN WATER 1,000 ML IV SCH ×2 (15:54→23:58)
[2019-09-25] MEDS: 0.9 % SODIUM CHLORIDE 1,000 ML IV SCH ×2 (16:43→23:58)
[2019-09-25] MEDS: INSULIN LISPRO 1 UNIT/0.01 ML UNIT SQ SCH ×2 (17:20→20:59)
[2019-09-25] MEDS ORDERED: NITROGLYCERIN 0.4 MG TAB.SUBL SL PRN (19:17)
[2019-09-25 19:59] LABS: Appearance,Urine CLEAR; Bacteria,Urine 0 /hpf (0); Bilirubin,Urine NEG (NEG); Color,Urine YELLOW; Culture Indicated,Urine NO; Glucose,Urine (UA) 50 mg/dL (NEG); Ketones,Urine NEG (NEG); Leukocyte Esterase,Urine NEG /uL (NEG); Mucus,Urine FEW /hpf (0); Nitrate,Urine NEG (NEG); Protein,Urine 100 mg/dL (NEG); Specific Gravity,Urine 1.047 (1.000-1.035); Urine Blood 0.03 mg/dL (<0.03); Urine Hyaline Cast 3 /lpf (0-2); Urine RBC 0 /hpf (0-1); Urine Squamous Epithelial Cell 0 /hpf (0-4); Urine WBC < 1 /hpf (0-4); Urobilinogen,Urine NEG (NEG)
[2019-09-25 20:02] LABS: Amphetamine Screen,Urine NONE DETECTED (NONDETECTED); Barbiturate Screen,Urine NONE DETECTED (NONDETECTED); Benzodiazepines Screen,Urine NONE DETECTED (NONDETECTED); Cannabinoid Screen,Urine NONE DETECTED (NONDETECTED); Cocaine Screen,Urine NONE DETECTED (NONDETECTED); Opiate Screen,Urine NONE DETECTED (NONDETECTED); Oxycodone, Urine Screen NONE DETECTED (NONDETECTED); Phencyclidine Screen,Urine NONE DETECTED (NONDETECTED)
[2019-09-25] MEDS: 0.9 % SODIUM CHLORIDE 10 ML SYRINGE IV SCH (22:11)
[2019-09-26] MEDS: 0.9 % SODIUM CHLORIDE 10 ML SYRINGE IV SCH ×4 (05:36→21:36)
[2019-09-26 06:44] LABS: ALT/SGPT 19 U/l (0-40); AST/SGOT 30 U/l (0-37); Albumin 3.5 gm/dL (3.2-5.2); Albumin/Globulin Ratio 1.3 (1.0-2.3); Alkaline Phosphatase 59 U/L (39-117); Bilirubin,Direct 0.3 mg/dL (0.0-0.3); Bilirubin,Total 1.2 mg/dL (0.0-1.0); Blood Urea Nitrogen 23 mg/dl (6-20); Calcium 8.5 mg/dl (8.6-10.4); Carbon Dioxide 19 mmol/L (22-30); Chloride 105 mmol/L (96-108); Globulin 2.8 gm/dL (2.2-3.7); Glomerular Filtration Rate 77; Glucose 113 mg/dL (70-105); Lactate Dehydrogenase 274 U/L (94-250); Phosphorous 3.1 mg/dL (2.7-4.5); Triglycerides 68 mg/dl (<150); Uric Acid 7.5 mg/dL (2.5-8.0)
--- NOTE | 2019-09-26 07:49 | Internal Med Progress Note ---
Medical - PN: Subj Patient information: Note initiated : 09/26/19 at 7:44 am Service Date, if different from initiated Date: [] Patient: Faustino Muir a 49 y/o M admitted on 09/25/19 for Decreased LOC, Hypoglycemia. Chief Complaint: [] Interval history: Mr. Muir is a 49 year old M Who his called 911 because the patient was poorly responsive. Sounds like he was brought in yesterday for the same thing and found to have low blood sugars. Biopsy record of it. Blood sugars were 47 when he arrived and he did have some response to D50 amp bring her sugars up to 120 with improved mentation although poor still. Quite lethargic. He is on a D10 drip and is received several amps of D50. yesterday his insulin was cut back from 180-160. Enough he had much to eat last night does not sound like he did. describes him as poorly compliant with his medication he does administer his own. Does have a history of ventricular fibrillation has an AICD in place. EKG was sinus and bigeminal pattern. Work-up included a CT of the brain which showed a new infarct right perez radiata also demonstrated old infarct in the right caudate and right frontal lobe. Case was discussed with stroke neurology said patient not a TPA candidate. CTA head and neck done is unremarkable for anything significant. Patient is on aspirin at home. ABG poa2 did not correlate with the pulse ox, with a reading of 59. However nursing does report appears to have sleep apnea, manifesting when he is sleeping in a suspect this is the cause of the low oxygen. Does have an effusion on the right. Patient does not remember a whole lot. Seems lasting remembers is waking up in the ED. 5/6 Patient still on D10 drip this morning but stopped at 8:30. Patient feeling a lot better. Slept well. No new complaints. Does not feel like his speech is impaired. Review of Systems: denies headache/fever/chills/nausea/vomiting/chest or abdominal pain/cough/dyspnea/diarrhea. Otherwise see above. - Constitutional Vitals: Vital Signs Temp Pulse Resp BP Pulse Ox 97.7 F 115 H 20 145/98 98 09/26/19 07:31 09/26/19 04:00 09/26/19 07:31 09/26/19 07:31 09/26/19 07:31 Period Temp Pulse Resp BP Sys/Ramírez Pulse Ox Last 24 Hr 97.7 F-98.9 F 52-123 13-24 131-170/89-135 95-100 Intake and Output 09/25/19 09/26/19 09/26/19 21:59 05:59 13:59 Intake Total 1000 0 Output Total 550 650 Balance 450 1400 Weight 130.317 kg Intake & Output: Intake & Output 09/25/19 09/26/19 09/26/19 21:59 05:59 13:59 Intake Total 1000 2049 Output Total 550 650 Balance 450 1400 Weight 130.317 kg Intake: IV 1000 2050 Sodium Chloride 0.9% 1,000 ml @ 1000 125 mls/hr IV .Q8H MARY Rx#: [id number] Sodium Chloride 0.9% 1,000 ml @ 1000 Wide Open IV BOLUS ONE Rx#: [id number] Dextrose 10%-Water IV Solution 1000 1,000 ml @ 50 mls/hr IV .Q20H MARY Rx#:[id number] Output: Void Amount 550 650 Other: Urine Appearance Clear Clear Urine Color Light Debby Light Debby Exam: General: Alert and awake, No acute Distress, obese Eyes/N/T: EOMI, Head/Neck: neck supple, CV: Tacky but regular, no murmurs, Pulm: Diminished b/l, no wheezing Abd: soft, nontender, +BS x4 Ext: no clubbing/cyanosis, b/l LE 2+ edema Neuro: Alert and awake, mentation much improved back to baseline. No extremity weakness or numbness. Speech seems to be fairly clear, may be some subtle slurring when asked to repeat a phrase back to me. skin: warm/dry Medical - PN: Obj Da - Labs CBC & Chem 7: 09/25/19 07:55 09/26/19 04:51 Labs: Abnormal Lab Results 09/26/19 09/25/19 09/25/19 04:51 19:02 08:13 RDW MPV Gran % Lymph % (Auto) Lymph # (Auto) POC PT 15.3 H POC INR 1.3 H Carbon Dioxide 19 L BUN 23 H Glucose 113 H Calcium 8.5 L Magnesium Total Bilirubin 1.2 H GGT 63 H Lactate Dehydrogenase 274 H Ur Specific [place] 1.047 H Urine Protein 100 A Urine Glucose (UA) 50 A Urine Occult Blood 0.03 A Hyaline Casts 3 H 09/25/19 09/25/19 09/25/19 07:55 07:55 07:55 RDW 15.7 H MPV 10.9 H Gran % 85.2 H Lymph % (Auto) 8.3 L Lymph # (Auto) 0.75 L POC PT POC INR Carbon Dioxide BUN 25 H Glucose 61 L Calcium Magnesium 1.5 L Total Bilirubin GGT Lactate Dehydrogenase Ur Specific [place] Urine Protein Urine Glucose (UA) Urine Occult Blood Hyaline Casts Meds: Medications Acetaminophen (Tylenol) 650 mg PO Q6HP PRN PRN Reason: PAIN/FEVER > 101 Albuterol/Ipratropium (Duoneb) 3 ml NEB Q4HP PRN PRN Reason: Shortness Of Breath Atorvastatin Calcium (Lipitor) 80 mg PO QDAY [facility] Clopidogrel Bisulfate (Plavix) 75 mg PO DAILY [facility] Dextrose (Dextrose 50%) 0 ml IV UD PRN PRN Reason: Hypoglycemia Diagnostic Test (Pha) (Accu-Chek) 1 each FS [facility] Last Admin: 09/26/19 06:30 Dose: 1 each Documented by: Enoxaparin Sodium (Lovenox) 40 mg SQ DAILY [facility] Glucose (Insta-Glucose) 15 gm PO PRN PRN PRN Reason: Hypoglycemia Dextrose (Dextrose 10%-Water Iv Solution) 1,000 mls @ 50 mls/hr IV .Q20H [facility] Last Admin: 09/25/19 23:58 Dose: 50 mls/hr Documented by: Potassium Chloride 40 meq/ (Dextrose) 520 mls @ 130 mls/hr IV UD PRN PRN Reason: Potassium < 3 Magnesium Sulfate (Magnesium Sulfate) 2 gm in 50 mls @ 50 mls/hr IV UD PRN PRN Reason: Magnesium </= 1.6 Last Infusion: 09/26/19 00:55 Dose: Infused Documented by: Sodium Chloride (Sodium Chloride 0.9%) 1,000 mls @ 125 mls/hr IV .Q8H [facility] Stop: 09/26/19 07:46 Last Admin: 09/25/19 23:58 Dose: 125 mls/hr Documented by: Insulin Human Lispro (Humalog) 0 unit SQ [facility]; Protocol Last Admin: 05/05/20 20:59 Dose: Not Given Documented by: Isosorbide Mononitrate (Imdur) 30 mg PO QAM [facility] Metformin HCl (Glucophage) 1,000 mg PO QAMCC [facility] Metoprolol Succinate (Toprol Xl) 25 mg PO QDAY [facility] Nitroglycerin (Nitrostat) 0.4 mg SL Q5M PRN PRN Reason: Chest Pain Ondansetron HCl (Zofran) 4 mg IV Q4HP PRN PRN Reason: Nausea And Vomiting Pantoprazole Sodium (Protonix) 40 mg PO QAMAC [facility] Pantoprazole Sodium (Protonix) 40 mg IV ONCE ONE Stop: 09/26/19 14:49 Polyethylene Glycol (Miralax) 17 gm PO DAILYP PRN PRN Reason: Constipation Potassium Chloride (Kdur) 40 meq PO UD PRN PRN Reason: Potssium is 3-3.5 Potassium Chloride (Kdur) 40 meq PO UD PRN PRN Reason: Potassium < 3 Senna (Senokot) 2 tab PO DAILYP PRN PRN Reason: Constipation Sodium Chloride (Saline Flush) 10 ml IV Q8 [facility] Last Admin: 09/26/19 05:36 Dose: 10 ml Documented by: Medical - PN: A/P - Time Spent With Patient Total time spent is greater than 50% in coordination of care (as documented) at patient's floor/unit and/or counseling patient: - Narrative A/P Narrative: A: *Acute CVA right perez radiata (h/o cva) with mild speech deficits resolved: Failed aspirin -CT also showing old infarcts right caudate nucleus and frontal lobe -carotids no sig stenosis *Hypoglycemia (h/o DM): On metformin and insulin 180 units daily -on d10 gtt in ED -resolved *Encephalopathy: 2/2 above. Resolved *Right pleural effusion: on room air *Likely SENA: Body Habitus consistent and witnessed apnea while sleeping per staff, history of snoring and fatigue *Obesity: *CAD: *Cardiomyopathy w/AICD: *Chronic cough: possible GERD, Trial of PPI * P: -Permissive hypertension for 24 to 48 hours -Failed aspirin, will start Plavix -Continue statin -Echo pending -off D10 drip, cont SSI -held basal Insulin and metformin initially, restart basal insulin this afternoon at 90 and titrate up -PPI trial - -ST -pt/ot -f/u with Pulm for sleep study -ppx: Lovenox: Full code Medical - PN: Qual - Stroke Symptom Onset Unknown: Yes
[2019-09-26] MEDS: INSULIN LISPRO 1 UNIT/0.01 ML UNIT SQ SCH ×3 (07:50→17:43)
[2019-09-26] MEDS: PANTOPRAZOLE 40 MG TABLET PO SCH (07:51)
[2019-09-26] MEDS: metFORMIN 500 MG TAB.XL.24H PO SCH (08:42)
[2019-09-26] MEDS ORDERED: FUROSEMIDE 20 MG/2 ML VIAL IV ONE (09:48)
[2019-09-26] MEDS: ENOXAPARIN 40 MG/0.4 ML SYRINGE SQ SCH (10:15)
[2019-09-26] MEDS: METOPROLOL SUCCINATE 25 MG TAB.XL.24H PO SCH (10:15)
[2019-09-26] MEDS: ATORVASTATIN 40 MG TABLET PO SCH (10:15)
[2019-09-26] MEDS: CLOPIDOGREL 75 MG TABLET PO SCH (10:15)
[2019-09-26] MEDS: ISOSORBIDE MONONITRATE 30 MG TAB.XL.24H PO SCH (10:15)
[2019-09-26] MEDS: DEXTROSE 10 % IN WATER 1,000 ML IV SCH (12:00)
[2019-09-26] MEDS ORDERED: INSULIN GLARGINE, HUMAN 1 UNIT/0.01 ML SQ SCH (14:00)
[2019-09-26] MEDS ORDERED: PANTOPRAZOLE 40 MG VIAL IV ONE (14:48)
[2019-09-27] MEDS: DEXTROSE 50% 50 ML VIAL IV PRN ×3 (00:10→03:00)
[2019-09-27] MEDS: INSULIN LISPRO 1 UNIT/0.01 ML UNIT SQ SCH ×5 (00:17→21:13)
[2019-09-27 00:34] LABS: POC Blood Urea Nitrogen 30 mg/dl (6-20); POC CO2 25 mmol/L (22-30); POC Calcium, Ionized 1.14 mmol/L (1.16-1.32); POC Chloride 103 mmol/L (96-108); POC Creatinine 1.4 mg/dl (0.7-1.2); POC Glucose, Random 115 mg/dL (70-105); POC Potassium 4.2 mmol/L (3.3-5.1); POC Sodium 139 mmol/L (133-145)
[2019-09-27 01:08] LABS: Chloride 101 mmol/L (96-108)
[2019-09-27 01:14] LABS: ALT/SGPT 22 U/l (0-40); AST/SGOT 34 U/l (0-37); Albumin 3.6 gm/dL (3.2-5.2); Albumin/Globulin Ratio 1.3 (1.0-2.3); Alkaline Phosphatase 60 U/L (39-117); Bilirubin,Direct 0.3 mg/dL (0.0-0.3); Bilirubin,Total 1.5 mg/dL (0.0-1.0); Blood Urea Nitrogen 24 mg/dl (6-20); Calcium 8.7 mg/dl (8.6-10.4); Carbon Dioxide 23 mmol/L (22-30); Globulin 2.7 gm/dL (2.2-3.7); Glomerular Filtration Rate 53; Glucose 118 mg/dL (70-105); Lactate Dehydrogenase 334 U/L (94-250); Phosphorous 5.1 mg/dL (2.7-4.5); Triglycerides 52 mg/dl (<150); Uric Acid 7.3 mg/dL (2.5-8.0)
[2019-09-27] MEDS: DEXTROSE 10 % IN WATER 1,000 ML IV SCH ×3 (04:20→19:38)
[2019-09-27] MEDS ORDERED: GLUCAGON,HUMAN RECOMBINANT 1 MG VIAL ONE ×2 (04:34→04:54)
[2019-09-27] MEDS ORDERED: GLUCAGON,HUMAN RECOMBINANT 1 MG VIAL IV ONE ×2 (04:35→04:45)
[2019-09-27] MEDS ORDERED: DEXTROSE 50% 50 ML VIAL IV ONE (04:45)
[2019-09-27] MEDS ORDERED: DEXTROSE 10 % IN WATER 1,000 ML IV SCH (04:45)
[2019-09-27] MEDS: 0.9 % SODIUM CHLORIDE 10 ML SYRINGE IV SCH ×3 (05:36→21:01)
[2019-09-27 07:06] LABS: Basophils # (Auto) 0.01 K/mcL (0.00-0.30); Basophils % (Auto) 0.1 % (0.0-2.0); Eosinophils # (Auto) 0.01 K/mcL (0.00-0.70); Eosinophils % (Auto) 0.1 % (0.0-7.0); Granulocytes % (Auto) 86.2 % (38.0-78.0); Hematocrit 44.3 % (40.1-51.0); Hemoglobin 14.9 g/dL (13.7-17.5); Lymphocytes # (Auto) 0.56 K/mcL (1.50-4.80); Mean Cell Volume 92.9 fL (80.0-100.0); Mean Corpuscular HGB Conc 33.6 g/dL (31.0-36.0); Mean Platelet Volume 10.7 fL (7.4-10.4); Monocytes # (Auto) 0.97 K/mcL (0.10-0.90); Monocytes % (Auto) 8.6 % (1.0-12.0); Platelet Count 169 K/mcL (140-440); RBC 4.77 M/mcL (4.63-6.08); Red Cell Distribution Width 15.4 % (11.5-14.5); WBC 11.3 K/mcL (4.50-11.00)
[2019-09-27] MEDS: PANTOPRAZOLE 40 MG TABLET PO SCH (07:23)
[2019-09-27 07:26] LABS: ALT/SGPT 21 U/l (0-40); AST/SGOT 29 U/l (0-37); Albumin 3.6 gm/dL (3.2-5.2); Albumin/Globulin Ratio 1.4 (1.0-2.3); Alkaline Phosphatase 58 U/L (39-117); Bilirubin,Total 1.5 mg/dL (0.0-1.0); Blood Urea Nitrogen 24 mg/dl (6-20); Calcium 8.5 mg/dl (8.6-10.4); Carbon Dioxide 20 mmol/L (22-30); Chloride 105 mmol/L (96-108); Globulin 2.5 gm/dL (2.2-3.7); Glomerular Filtration Rate 77; Glucose 97 mg/dL (70-105)
[2019-09-27] MEDS: metFORMIN 500 MG TAB.XL.24H PO SCH (09:01)
[2019-09-27] MEDS: CALCIUM W/VIT D3 500 MG TABLET PO SCH (09:01)
[2019-09-27] MEDS: METOPROLOL SUCCINATE 25 MG TAB.XL.24H PO SCH (09:01)
[2019-09-27] MEDS: CLOPIDOGREL 75 MG TABLET PO SCH (09:01)
[2019-09-27] MEDS: ISOSORBIDE MONONITRATE 30 MG TAB.XL.24H PO SCH (09:01)
[2019-09-27] MEDS: ATORVASTATIN 40 MG TABLET PO SCH (09:01)
[2019-09-27] MEDS: ENOXAPARIN 40 MG/0.4 ML SYRINGE SQ SCH (09:01)
--- NOTE | 2019-09-27 10:52 | Internal Med Progress Note ---
Medical - PN: Subj Patient information: Note initiated : 09/27/19 at 10:43 am Service Date, if different from initiated Date: [] Patient: Faustino Muir a 49 y/o M admitted on 09/25/19 for Decreased LOC, Hypoglycemia. Chief Complaint: [] Interval history: Mr. Muir is a 49 year old M Who his called 911 because the patient was poorly responsive. Sounds like he was brought in yesterday for the same thing and found to have low blood sugars. Biopsy record of it. Blood sugars were 47 when he arrived and he did have some response to D50 amp bring her sugars up to 120 with improved mentation although poor still. Quite lethargic. He is on a D10 drip and is received several amps of D50. yesterday his insulin was cut back from 180-160. Enough he had much to eat last night does not sound like he did. describes him as poorly compliant with his medication he does administer his own. Does have a history of ventricular fibrillation has an AICD in place. EKG was sinus and bigeminal pattern. Work-up included a CT of the brain which showed a new infarct right perez radiata also demonstrated old infarct in the right caudate and right frontal lobe. Case was discussed with stroke neurology said patient not a TPA candidate. CTA head and neck done is unremarkable for anything significant. Patient is on aspirin at home. ABG poa2 did not correlate with the pulse ox, with a reading of 59. However nursing does report appears to have sleep apnea, manifesting when he is sleeping in a suspect this is the cause of the low oxygen. Does have an effusion on the right. Patient does not remember a whole lot. Seems lasting remembers is waking up in the ED. 5/6 Patient still on D10 drip this morning but stopped at 8:30. Patient feeling a lot better. Slept well. No new complaints. Does not feel like his speech is impaired. 09/26 Pt does not have medical complaints. He seems to be in his baseline status. Last night his blood glucose dropped to 40. D50 x3 and glucagon 1mg x 2 were given. D10 75ml/hr. this morning blood glucose levels 79-128. Continue diabetic and dysphagia diet, continue metformin and insulin sliding scale. Discontinued Lantus. Monitor blood glucose. BP 154/94 Sat 97 percent on room air White blood cells increased to 11.3. No evidence of infection. Creatinine 1.1 from ESRD 1.5. ionize calcium 1.14. Calcium and vit d were ordered. Potassium 4.2. Review of Systems: denies headache/fever/chills/nausea/vomiting/chest or abdominal pain/cough/dyspnea/diarrhea. Otherwise see above. - Constitutional Vitals: Vital Signs Temp Pulse Resp BP Pulse Ox 98.3 F 60 20 154/94 97 09/27/19 08:00 09/27/19 04:15 09/27/19 08:00 09/27/19 08:00 09/27/19 08:00 Period Temp Pulse Resp BP Sys/Ramírez Pulse Ox Last 24 Hr 97.2 F-98.3 F 60-105 16-26 119-154/83-115 96-100 Intake and Output 09/26/19 09/27/19 09/27/19 21:59 05:59 13:59 Intake Total 1999 125 240 Output Total 2 Balance 1999 125 238 Weight 131.36 kg Intake & Output: Intake & Output 09/26/19 09/27/19 09/27/19 21:59 05:59 13:59 Intake Total 1999 125 240 Output Total 2 Balance 1999 125 238 Weight 131.36 kg Intake: IV 1999 125 Sodium Chloride 0.9% 1,000 ml @ 1000 125 mls/hr IV .Q8H [facility] Rx#: [id number] Dextrose 10%-Water IV Solution 1000 125 1,000 ml @ 50 mls/hr IV .Q20H [facility] Rx#:[id number] Oral 240 Output: # of times incontinent of urine 2 Other: Meal Jello Percent of Meal Consumed 100% Feeding Ability Independent - Additional findings Additional findings: General: Alert and awake, No acute Distress, obese Eyes/N/T: EOMI, Head/Neck: neck supple, CV: Tacky but regular, no murmurs, Pulm: Diminished b/l, no wheezing Abd: soft, nontender, +BS x4 Ext: no clubbing/cyanosis, b/l LE 2+ edema Neuro: Alert and awake, mentation much improved back to baseline. No extremity weakness or numbness. Speech seems to be fairly clear, may be some subtle slurring (improved). skin: warm/dry Psych: normal. Medical - PN: Obj Da - Labs CBC & Chem 7: 09/27/19 06:12 09/27/19 06:12 Labs: Abnormal Lab Results 09/27/19 09/27/19 09/27/19 06:12 06:12 00:24 WBC 11.3 H RDW 15.4 H MPV 10.7 H Gran % 86.2 H Lymph % (Auto) 5.0 L Gran # 9.73 H Lymph # (Auto) 0.56 L [place] # (Auto) 0.97 H POC PT POC INR Carbon Dioxide 20 L POC BUN 30 H BUN 24 H Creatinine POC Creatinine 1.4 H Glucose POC Glucose 115 H Calcium 8.5 L POC WB Ioniz Calcium 1.14 L Phosphorus Magnesium Total Bilirubin 1.5 H GGT Lactate Dehydrogenase Ur Specific [place] Urine Protein Urine Glucose (UA) Urine Occult Blood Hyaline Casts 09/27/19 09/26/19 09/25/19 00:24 04:51 19:02 WBC RDW MPV Gran % Lymph % (Auto) Gran # Lymph # (Auto) [place] # (Auto) POC PT POC INR Carbon Dioxide 19 L POC BUN BUN 24 H 23 H Creatinine 1.5 H POC Creatinine Glucose 118 H 113 H POC Glucose Calcium 8.5 L POC WB Ioniz Calcium Phosphorus 5.1 H Magnesium Total Bilirubin 1.5 H 1.2 H GGT 69 H 63 H Lactate Dehydrogenase 334 H 274 H Ur Specific [place] 1.047 H Urine Protein 100 A Urine Glucose (UA) 50 A Urine Occult Blood 0.03 A Hyaline Casts 3 H 09/25/19 09/25/19 09/25/19 08:13 07:55 07:55 WBC RDW MPV Gran % Lymph % (Auto) Gran # Lymph # (Auto) [place] # (Auto) POC PT 15.3 H POC INR 1.3 H Carbon Dioxide POC BUN BUN 25 H Creatinine POC Creatinine Glucose 61 L POC Glucose Calcium POC WB Ioniz Calcium Phosphorus Magnesium 1.5 L Total Bilirubin GGT Lactate Dehydrogenase Ur Specific [place] Urine Protein Urine Glucose (UA) Urine Occult Blood Hyaline Casts 09/25/19 07:55 WBC RDW 15.7 H MPV 10.9 H Gran % 85.2 H Lymph % (Auto) 8.3 L Gran # Lymph # (Auto) 0.75 L [place] # (Auto) POC PT POC INR Carbon Dioxide POC BUN BUN Creatinine POC Creatinine Glucose POC Glucose Calcium POC WB Ioniz Calcium Phosphorus Magnesium Total Bilirubin GGT Lactate Dehydrogenase Ur Specific [place] Urine Protein Urine Glucose (UA) Urine Occult Blood Hyaline Casts Meds: Medications Acetaminophen (Tylenol) 650 mg PO Q6HP PRN PRN Reason: PAIN/FEVER > 101 Albuterol/Ipratropium (Duoneb) 3 ml NEB Q4HP PRN PRN Reason: Shortness Of Breath Atorvastatin Calcium (Lipitor) 80 mg PO QDAY [facility] Last Admin: 09/27/19 09:01 Dose: 80 mg Documented by: Calcium/Vitamin D (Calcium W/Vit D3) 1,000 mg PO DAILY [facility] Last Admin: 09/27/19 09:01 Dose: 1,000 mg Documented by: Clopidogrel Bisulfate (Plavix) 75 mg PO DAILY [facility] Last Admin: 09/27/19 09:01 Dose: 75 mg Documented by: Dextrose (Dextrose 50%) 0 ml IV UD PRN PRN Reason: Hypoglycemia Last Admin: 09/27/19 03:00 Dose: 50 ml Documented by: Diagnostic Test (Pha) (Accu-Chek) 1 each FS [facility] Last Admin: 09/27/19 07:23 Dose: 1 each Documented by: Enoxaparin Sodium (Lovenox) 40 mg SQ DAILY [facility] Last Admin: 09/27/19 09:01 Dose: 40 mg Documented by: Glucose (Insta-Glucose) 15 gm PO PRN PRN PRN Reason: Hypoglycemia Potassium Chloride 40 meq/ (Dextrose) 520 mls @ 130 mls/hr IV UD PRN PRN Reason: Potassium < 3 Magnesium Sulfate (Magnesium Sulfate) 2 gm in 50 mls @ 50 mls/hr IV UD PRN PRN Reason: Magnesium </= 1.6 Last Infusion: 09/26/19 00:55 Dose: Infused Documented by: Dextrose (Dextrose 10%-Water Iv Solution) 1,000 mls @ 75 mls/hr IV .[id number] [facility] Last Admin: 09/27/19 04:20 Dose: 75 mls/hr Documented by: Insulin Human Lispro (Humalog) 0 unit SQ [facility]; Protocol Last Admin: 09/27/19 07:24 Dose: Not Given Documented by: Isosorbide Mononitrate (Imdur) 30 mg PO QAM [facility] Last Admin: 09/27/19 09:01 Dose: 30 mg Documented by: Metformin HCl (Glucophage) 1,000 mg PO QAC [facility] Last Admin: 09/27/19 09:01 Dose: 1,000 mg Documented by: Metoprolol Succinate (Toprol Xl) 25 mg PO QDAY [facility] Last Admin: 09/27/19 09:01 Dose: 25 mg Documented by: Nitroglycerin (Nitrostat) 0.4 mg SL Q5M PRN PRN Reason: Chest Pain Ondansetron HCl (Zofran) 4 mg IV Q4HP PRN PRN Reason: Nausea And Vomiting Pantoprazole Sodium (Protonix) [facility] Last Admin: 09/27/19 07:23 Dose: 40 mg Documented by: Polyethylene Glycol (Miralax) 17 gm PO DAILYP PRN PRN Reason: Constipation Potassium Chloride (Kdur) 40 meq PO UD PRN PRN Reason: Potssium is 3-3.5 Potassium Chloride (Kdur) 40 meq PO UD PRN PRN Reason: Potassium < 3 Senna (Senokot) 2 tab PO DAILYP PRN PRN Reason: Constipation Sodium Chloride (Saline Flush) 10 ml IV Q8 [facility] Last Admin: 09/27/19 05:36 Dose: Not Given Documented by: Medical - PN: A/P - Time Spent With Patient Total time spent is greater than 50% in coordination of care (as documented) at patient's floor/unit and/or counseling patient: - Narrative A/P Narrative: Assessment: *Acute CVA right perez radiata (h/o cva) with mild speech deficits resolved: Failed aspirin -CT also showing old infarcts right caudate nucleus and frontal lobe -carotids no sig stenosis *Hypoglycemia (h/o DM): On metformin and insulin 180 units daily -on d10 gtt in ED -resolved *Encephalopathy: 2/2 above. Resolved *Right pleural effusion: on room air *Likely SENA: Body Habitus consistent and witnessed apnea while sleeping per staff, history of snoring and fatigue *Obesity: *CAD: *Cardiomyopathy w/AICD: *Chronic cough: possible GERD, Trial of PPI *Chronic systolic CHF: EF 15-20%, AICD in place. Plan: -Completed permissive hypertension. Continue imdur 30 mg daily, metoprolol 25 mg daily. Added hydralazine 10 mg 4 times daily -Failed aspirin, continue aspirin and Plavix. -Continue statin -Echo -EF of 15 to 20% -Continue diabetic and dysphagia diet, continue metformin and insulin sliding scale. Discontinued Lantus. Monitor blood glucose. -PPI trial -ST -pt/ot -f/u with Pulm for sleep study. Follow-up with neurology and cardiology. -ppx: Lovenox: Full code Medical - PN: Qual - Stroke Symptom Onset Unknown: Yes
[2019-09-27] MEDS: hydrALAZINE 10 MG TABLET PO SCH ×3 (12:24→20:58)
[2019-09-27] MEDS: NICOTINE 14 MG PATCH TOPICAL SCH (14:46)
[2019-09-28] MEDS: 0.9 % SODIUM CHLORIDE 10 ML SYRINGE IV SCH ×2 (04:56→12:59)
[2019-09-28 06:38] LABS: Basophils # (Auto) 0.04 K/mcL (0.00-0.30); Basophils % (Auto) 0.6 % (0.0-2.0); Eosinophils % (Auto) 2.8 % (0.0-7.0); Granulocytes % (Auto) 63.9 % (38.0-78.0); Hematocrit 47.1 % (40.1-51.0); Hemoglobin 15.3 g/dL (13.7-17.5); Lymphocytes # (Auto) 1.41 K/mcL (1.50-4.80); Lymphocytes % (Auto) 19.7 % (15.5-49.0); Mean Cell Volume 94.2 fL (80.0-100.0); Mean Corpuscular HGB Conc 32.5 g/dL (31.0-36.0); Mean Platelet Volume 10.8 fL (7.4-10.4); Monocytes # (Auto) 0.93 K/mcL (0.10-0.90); Platelet Count 168 K/mcL (140-440); Red Cell Distribution Width 15.9 % (11.5-14.5); WBC 7.2 K/mcL (4.50-11.00)
[2019-09-28 07:12] LABS: ALT/SGPT 20 U/l (0-40); AST/SGOT 28 U/l (0-37); Albumin 3.4 gm/dL (3.2-5.2); Albumin/Globulin Ratio 1.3 (1.0-2.3); Alkaline Phosphatase 63 U/L (39-117); Bilirubin,Total 1.8 mg/dL (0.0-1.0); Blood Urea Nitrogen 23 mg/dl (6-20); Calcium 8.6 mg/dl (8.6-10.4); Carbon Dioxide 19 mmol/L (22-30); Chloride 102 mmol/L (96-108); Globulin 2.7 gm/dL (2.2-3.7); Glomerular Filtration Rate 77; Glucose 173 mg/dL (70-105)
[2019-09-28] MEDS: INSULIN LISPRO 1 UNIT/0.01 ML UNIT SQ SCH ×3 (07:55→17:33)
[2019-09-28] MEDS: metFORMIN 500 MG TAB.XL.24H PO SCH (07:55)
[2019-09-28] MEDS: PANTOPRAZOLE 40 MG TABLET PO SCH (07:55)
[2019-09-28] MEDS: DEXTROSE 10 % IN WATER 1,000 ML IV SCH (08:42)
[2019-09-28] MEDS: hydrALAZINE 10 MG TABLET PO SCH ×3 (09:07→17:33)
[2019-09-28] MEDS: ISOSORBIDE MONONITRATE 30 MG TAB.XL.24H PO SCH (09:07)
[2019-09-28] MEDS: METOPROLOL SUCCINATE 25 MG TAB.XL.24H PO SCH (09:08)
[2019-09-28] MEDS: NICOTINE 14 MG PATCH TOPICAL SCH (09:08)
[2019-09-28] MEDS: CLOPIDOGREL 75 MG TABLET PO SCH (09:08)
[2019-09-28] MEDS: ENOXAPARIN 40 MG/0.4 ML SYRINGE SQ SCH (09:08)
[2019-09-28] MEDS: ATORVASTATIN 40 MG TABLET PO SCH (09:08)
[2019-09-28] MEDS: CALCIUM W/VIT D3 500 MG TABLET PO SCH (09:08)
[2019-09-28] MEDS ORDERED: INSULIN GLARGINE, HUMAN 1 UNIT/0.01 ML SQ SCH (12:00)
[2019-09-28] MEDS ORDERED: LORazepam 2 MG/ML VIAL IV PRN ×2 (13:40→16:58)
--- NOTE | 2019-09-28 16:06 | Internal Med Progress Note ---
Medical - PN: Subj Patient information: Note initiated : 09/28/19 at 4:00 pm Service Date, if different from initiated Date: [] Patient: Faustino Muir a 49 y/o M admitted on 09/25/19 for Decreased LOC, Hypoglycemia. Chief Complaint: [] Interval history: Mr. Muir is a 49 year old M Who his called 911 because the patient was poorly responsive. Sounds like he was brought in yesterday for the same thing and found to have low blood sugars. Biopsy record of it. Blood sugars were 47 when he arrived and he did have some response to D50 amp bring her sugars up to 120 with improved mentation although poor still. Quite lethargic. He is on a D10 drip and is received several amps of D50. yesterday his insulin was cut back from 180-160. Enough he had much to eat last night does not sound like he did. describes him as poorly compliant with his medication he does administer his own. Does have a history of ventricular fibrillation has an AICD in place. EKG was sinus and bigeminal pattern. Work-up included a CT of the brain which showed a new infarct right perez radiata also demonstrated old infarct in the right caudate and right frontal lobe. Case was discussed with stroke neurology said patient not a TPA candidate. CTA head and neck done is unremarkable for anything significant. Patient is on aspirin at home. ABG poa2 did not correlate with the pulse ox, with a reading of 59. However nursing does report appears to have sleep apnea, manifesting when he is sleeping in a suspect this is the cause of the low oxygen. Does have an effusion on the right. Patient does not remember a whole lot. Seems lasting remembers is waking up in the ED. 5/6 Patient still on D10 drip this morning but stopped at 8:30. Patient feeling a lot better. Slept well. No new complaints. Does not feel like his speech is impaired. 09/26 Pt does not have medical complaints. He seems to be in his baseline status. Last night his blood glucose dropped to 40. D50 x3 and glucagon 1mg x 2 were given. D10 75ml/hr. this morning blood glucose levels 79-128. Continue diabetic and dysphagia diet, continue metformin and insulin sliding scale. Discontinued Lantus. Monitor blood glucose. BP 154/94 Sat 97 percent on room air White blood cells increased to 11.3. No evidence of infection. Creatinine 1.1 from ESRD 1.5. ionize calcium 1.14. Calcium and vit d were ordered. Potassium 4.2. 09/27 Patient does not have any medical complaints. Late yesterday afternoon he dressed up and wanted to leave. After explanation and education, he stayed. Today he wanted to leave for home. He has agitation at times. We feel pt may not have capacity to make medical decision. With his permission, talked to . He agreed to stay after talked to him. His BG around 250. D10 was discontinued. Lantus 5 units was started. Review of Systems: denies headache/fever/chills/nausea/vomiting/chest or abdominal pain/cough/dyspnea/diarrhea. Otherwise see above. - Constitutional Vitals: Vital Signs Temp Pulse Resp BP Pulse Ox 98.1 F 92 H 24 H 118/89 98 09/28/19 11:36 09/28/19 11:36 09/28/19 11:36 09/28/19 11:36 09/28/19 11:36 Period Temp Pulse Resp BP Sys/Ramírez Pulse Ox Last 24 Hr 96.9 F-98.1 F 90-94 14-24 118-149/78-91 98-100 Intake and Output 09/28/19 09/28/19 09/28/19 05:59 13:59 21:59 Intake Total 1659 240 Output Total 76 200 Balance -76 1459 240 Intake & Output: Intake & Output 09/28/19 09/28/19 09/28/19 05:59 13:59 21:59 Intake Total 1659 240 Output Total 76 200 Balance -76 1459 240 Intake: IV 284 Dextrose 10%-Water IV Solution 284 1,000 ml @ 75 mls/hr IV . [id number] [facility] Rx#:[id number] Oral 1375 240 Output: Void Amount 75 200 # of times incontinent of urine 1 Other: Meal Pudding cup Breakfast Lunch Percent of Meal Consumed 100% 100% 75% Feeding Ability Independent Independent Independent Urine Appearance Clear Clear Urine Color Dark Yellow Dark Yellow Urine Odor Normal # Voids 1 - Additional findings Additional findings: General: Alert and awake, No acute Distress, obese. agitation at times. Eyes/N/T: EOMI, Head/Neck: neck supple, CV: Tacky but regular, no murmurs, Pulm: Diminished b/l, no wheezing Abd: soft, nontender, +BS x4 Ext: no clubbing/cyanosis, b/l LE 2+ edema Neuro: Alert and awake, mentation much improved back to baseline. No extremity weakness or numbness. Speech seems to be fairly clear, may be some subtle slurring (improved). skin: warm/dry Psych: normal. Medical - PN: Obj Da - Labs CBC & Chem 7: 09/28/19 04:52 09/28/19 04:52 Labs: Abnormal Lab Results 09/28/19 09/28/19 09/27/19 04:52 04:52 06:12 WBC RDW 15.9 H MPV 10.8 H Gran % Lymph % (Auto) [place] % (Auto) 13.0 H Gran # Lymph # (Auto) 1.41 L [place] # (Auto) 0.93 H Carbon Dioxide 19 L 20 L POC BUN BUN 23 H 24 H Creatinine POC Creatinine Glucose 173 H POC Glucose Calcium 8.5 L POC WB Ioniz Calcium Phosphorus Magnesium Total Bilirubin 1.8 H 1.5 H GGT Lactate Dehydrogenase Ur Specific [place] Urine Protein Urine Glucose (UA) Urine Occult Blood Hyaline Casts 09/27/19 09/27/19 09/27/19 06:12 00:24 00:24 WBC 11.3 H RDW 15.4 H MPV 10.7 H Gran % 86.2 H Lymph % (Auto) 5.0 L [place] % (Auto) Gran # 9.73 H Lymph # (Auto) 0.56 L [place] # (Auto) 0.97 H Carbon Dioxide POC BUN 30 H BUN 24 H Creatinine 1.5 H POC Creatinine 1.4 H Glucose 118 H POC Glucose 115 H Calcium POC WB Ioniz Calcium 1.14 L Phosphorus 5.1 H Magnesium Total Bilirubin 1.5 H GGT 69 H Lactate Dehydrogenase 334 H Ur Specific [place] Urine Protein Urine Glucose (UA) Urine Occult Blood Hyaline Casts 09/26/19 09/25/19 09/25/19 04:51 19:02 07:55 WBC RDW MPV Gran % Lymph % (Auto) [place] % (Auto) Gran # Lymph # (Auto) [place] # (Auto) Carbon Dioxide 19 L POC BUN BUN 23 H Creatinine POC Creatinine Glucose 113 H POC Glucose Calcium 8.5 L POC WB Ioniz Calcium Phosphorus Magnesium 1.5 L Total Bilirubin 1.2 H GGT 63 H Lactate Dehydrogenase 274 H Ur Specific [place] 1.047 H Urine Protein 100 A Urine Glucose (UA) 50 A Urine Occult Blood 0.03 A Hyaline Casts 3 H Meds: Medications Acetaminophen (Tylenol) 650 mg PO Q6HP PRN PRN Reason: PAIN/FEVER > 101 Albuterol/Ipratropium (Duoneb) 3 ml NEB Q4HP PRN PRN Reason: Shortness Of Breath Atorvastatin Calcium (Lipitor) 80 mg PO QDAY [facility] Last Admin: 09/28/19 09:08 Dose: 80 mg Documented by: Calcium/Vitamin D (Calcium W/Vit D3) 1,000 mg PO DAILY [facility] Last Admin: 09/28/19 09:08 Dose: 1,000 mg Documented by: Clopidogrel Bisulfate (Plavix) 75 mg PO DAILY [facility] Last Admin: 09/28/19 09:08 Dose: 75 mg Documented by: Dextrose (Dextrose 50%) 0 ml IV UD PRN PRN Reason: Hypoglycemia Last Admin: 09/27/19 03:00 Dose: 50 ml Documented by: Diagnostic Test (Pha) (Accu-Chek) 1 each [facility] Last Admin: 09/28/19 14:42 Dose: 1 each Documented by: Enoxaparin Sodium (Lovenox) 40 mg SQ DAILY [facility] Last Admin: 09/28/19 09:08 Dose: 40 mg Documented by: Glucose (Insta-Glucose) 15 gm PO PRN PRN PRN Reason: Hypoglycemia Hydralazine HCl (Apresoline) 10 mg PO QID [facility] Last Admin: 09/28/19 12:58 Dose: 10 mg Documented by: Potassium Chloride 40 meq/ (Dextrose) 520 mls @ 130 mls/hr IV UD PRN PRN Reason: Potassium < 3 Magnesium Sulfate (Magnesium Sulfate) 2 gm in 50 mls @ 50 mls/hr IV UD PRN PRN Reason: Magnesium </= 1.6 Last Infusion: 09/26/19 00:55 Dose: Infused Documented by: Insulin Glargine (Lantus) 5 unit SQ DAILY [facility] Last Admin: 09/28/19 12:58 Dose: 5 units Documented by: Insulin Human Lispro (Humalog) 0 unit SQ [facility]; Protocol Last Admin: 09/28/19 12:58 Dose: 6 units Documented by: Isosorbide [facility] ([facility]ur) [facility] [place] Last Admin: 09/28/19 09:07 Dose: 30 mg Documented by: Lorazepam (Ativan) 0.5 mg IV Q6HP PRN PRN Reason: Alcohol Withdrawal Metformin HCl (Glucophage) 1,000 mg PO QAC [facility] Last Admin: 09/28/19 07:55 Dose: 1,000 mg Documented by: Metoprolol Succinate (Toprol Xl) 25 mg PO QDAY [facility] Last Admin: 09/28/19 09:08 Dose: 25 mg Documented by: Nicotine (Nicoderm) 21 mg TOPICAL DAILY@1000 [facility] Nitroglycerin (Nitrostat) 0.4 mg SL Q5M PRN PRN Reason: Chest Pain Ondansetron HCl (Zofran) 4 mg IV Q4HP PRN PRN Reason: Nausea And Vomiting Pantoprazole [facility]odium [facility]ix) [facility] Last Admin: 09/28/19 07:55 Dose: 40 mg Documented by: Polyethylene Glycol (Miralax) 17 gm PO DAILYP PRN PRN Reason: Constipation Potassium Chloride (Kdur) 40 meq PO UD PRN PRN Reason: Potssium is 3-3.5 Potassium Chloride (Kdur) 40 meq PO UD PRN PRN Reason: Potassium < 3 Senna (Senokot) 2 tab PO DAILYP PRN PRN Reason: Constipation Sodium Chloride (Saline Flush) 10 ml IV Q8 [facility] Last Admin: 09/28/19 12:59 Dose: 10 ml Documented by: Medical - PN: A/P - Time Spent With Patient Total time spent is greater than 50% in coordination of care (as documented) at patient's floor/unit and/or counseling patient: - Narrative A/P Narrative: Assessment: *Acute CVA right perez radiata (h/o cva) with mild speech deficits resolved: Failed aspirin -CT also showing old infarcts right caudate nucleus and frontal lobe -carotids no sig stenosis *Hypoglycemia (h/o DM): *Encephalopathy: 2/2 above. Resolved *Right pleural effusion: on room air *Likely SENA: Body Habitus consistent and witnessed apnea while sleeping per staff, history of snoring and fatigue *Obesity: *CAD: *Cardiomyopathy w/AICD: *Chronic cough: possible GERD, Trial of PPI *Chronic systolic CHF: EF 15-20%, AICD in place. Plan: -Completed permissive hypertension. Continue imdur 30 mg daily, metoprolol 25 mg daily. Added hydralazine 10 mg 4 times daily -Failed aspirin, continue aspirin and Plavix. -Continue statin -Echo -EF of 15 to 20% -Continue diabetic and dysphagia diet, continue metformin and insulin sliding scale. His BG around 250. D10 was discontinued. Lantus 5 units was started. -PPI trial -ST -pt/ot -f/u with Pulm for sleep study. Follow-up with neurology and cardiology. -ppx: Lovenox: Full code Medical - PN: Qual - Stroke Symptom Onset Unknown: Yes
--- NOTE | 2019-09-28 22:57 | Discharge Summary ---
Medical - DS: Prov Patient information: Note initiated : 09/28/19 at 10:50 pm Service Date, if different from initiated Date: [] Patient: Faustino Muir a 49 y/o M admitted on 09/25/19 for Decreased LOC, Hypoglycemia. Chief Complaint: [] Refer to H&P by Wilfred Bustamante D.O.> 09/25/19 Mr. Muir is a 49 year old M Who his called 911 because the patient was poorly responsive. Sounds like he was brought in yesterday for the same thing and found to have low blood sugars. Biopsy record of it. Blood sugars were 47 when he arrived and he did have some response to D50 amp bring her sugars up to 120 with improved mentation although poor still. Quite lethargic. He is on a D10 drip and is received several amps of D50. yesterday his insulin was cut back from 180-160. Enough he had much to eat last night does not sound like he did. describes him as poorly compliant with his medication he does administer his own. Does have a history of ventricular fibrillation has an AICD in place. EKG was sinus and bigeminal pattern. Work-up included a CT of the brain which showed a new infarct right perez rad iata also demonstrated old infarct in the right caudate and right frontal lobe. Case was discussed with stroke neurology said patient not a TPA candidate. CTA head and neck done is unremarkable for anything significant. Patient is on aspirin at home. ABG poa2 did not correlate with the pulse ox, with a reading of 59. However nursing does report appears to have sleep apnea, manifesting when he is sleeping in a suspect this is the cause of the low oxygen. Does have an effusion on the right. Patient does not remember a whole lot. Seems lasting remembers is waking up in the ED. Date of admission: 09/25/19 15:25 Discharge date: 09/28/19 Primary care physician: Uriah Mcclelland DO Consults: 09/25/19 13:34 Consult to Physician [CONS] Stat Comment: Consulting Provider: Wilfred Bustamante Reason For Exam: Physician to Consult Medical - DS: Meds - Discharge Medications Active and Home Medications: Home Medications aspirin 81 mg tablet,delayed release 81 mg PO DAILY tab 01/09/15 [History Confirmed 09/25/19 Last Taken 05/28/18] atorvastatin 80 mg tablet 80 mg PO QDAY #90 tab 08/13/19 [Rx Confirmed 09/25/19 Last Taken Unknown] blood sugar diagnostic See Rx Instructions .ROUTE .MEDSUPPLY #50 each 08/13/19 [Rx Confirmed 09/25/19 Last Taken Unknown] insulin glargine U-300 conc 300 unit/mL (1.5 mL) subcutaneous pen 180 unit SUB-Q QDAY #4.5 ml 08/13/19 [Rx Confirmed 09/25/19 Last Taken Unknown] isosorbide mononitrate 30 mg tablet,extended release 24 hr 30 mg PO QAM #90 tab 08/13/19 [Rx Confirmed 09/25/19 Last Taken Unknown] lancets 33 gauge See Rx Instructions .ROUTE .MEDSUPPLY #100 each 08/13/19 [Rx Confirmed 09/25/19 Last Taken Unknown] metoprolol succinate 25 mg tablet,extended release 24 hr 25 mg PO QDAY #90 tab 08/13/19 [Rx Confirmed 09/25/19 Last Taken Unknown] pen needle, diabetic 33 gauge x 1/4" See Rx Instructions .ROUTE .MEDSUPPLY #100 each 08/13/19 [Rx Confirmed 09/25/19 Last Taken Unknown] spironolactone 25 mg tablet 25 mg PO QDAY #90 tab 08/13/19 [Rx Confirmed 09/25/19 Last Taken Unknown] Furosemide [Lasix] 10 mg PO DAILY 09/25/19 [History Confirmed 09/25/19 Last Taken Unknown] Linezolid [Zyvox] 600 mg PO Q12 09/25/19 [History Confirmed 09/25/19 Last Taken Unknown] Nitroglycerin 0.4 mg SUBLINGUAL PRN PRN 09/25/19 [History Confirmed 09/25/19 Last Taken Unknown] Olmesartan Medoxomil [Benicar] 20 mg PO DAILY 09/25/19 [History Confirmed 09/25/19 Last Taken Unknown] metFORMIN HCL [Metformin HCl ER] 1,000 mg PO QAMCC 09/25/19 [History Confirmed 09/25/19 Last Taken Unknown] metFORMIN HCL [Metformin HCl ER] 500 mg PO ACS 09/25/19 [History Confirmed 09/25/19 Last Taken Unknown] Medical - DS: Hosp Hospital Course: Interval history: Mr. Muir is a 49 year old M Who his called 911 because the patient was poorly responsive. Sounds like he was brought in yesterday for the same thing and found to have low blood sugars. Biopsy record of it. Blood sugars were 47 when he arrived and he did have some response to D50 amp bring her sugars up to 120 with improved mentation although poor still. Quite lethargic. He is on a D10 drip and is received several amps of D50. yesterday his insulin was cut back from 180-160. Enough he had much to eat last night does not sound like he did. describes him as poorly compliant with his medication he does administer his own. Does have a history of ventricular fibrillation has an AICD in place. EKG was sinus and bigeminal pattern. Work-up included a CT of the brain which showed a new infarct right perez radiata also demonstrated old infarct in the right caudate and right frontal lobe. Case was discussed with stroke neurology said patient not a TPA candidate. CTA head and neck done is unremarkable for anything significant. Patient is on aspirin at home. ABG poa2 did not correlate with the pulse ox, with a reading of 59. However nursing does report appears to have sleep apnea, manifesting when he is sleeping in a suspect this is the cause of the low oxygen. Does have an effusion on the right. Patient does not remember a whole lot. Seems lasting remembers is waking up in the ED. *Acute CVA right perez radiata (h/o cva) with mild speech deficits resolved: Failed aspirin -CT also showing old infarcts right caudate nucleus and frontal lobe -carotids no sig stenosis *Hypoglycemia (h/o DM): *Encephalopathy: 2/2 above. Resolved *Right pleural effusion: on room air *Likely SENA: Body Habitus consistent and witnessed apnea while sleeping per staff, history of snoring and fatigue *Obesity: *CAD: *Cardiomyopathy w/AICD: *Chronic cough: possible GERD, Trial of PPI *Chronic systolic CHF: EF 15-20%, AICD in place. 09/25 Patient still on D10 drip this morning but stopped at 8:30. Patient feeling a lot better. Slept well. No new complaints. Does not feel like his speech is impaired. 09/26 Pt does not have medical complaints. He seems to be in his baseline status. Last night his blood glucose dropped to 40. D50 x3 and glucagon 1mg x 2 were given. D10 75ml/hr. this morning blood glucose levels 79-128. Continue diabetic and dysphagia diet, continue metformin and insulin sliding scale. Discontinued Lantus. Monitor blood glucose. BP 154/94 Sat 97 percent on room air White blood cells increased to 11.3. No evidence of infection. Creatinine 1.1 from ESRD 1.5. ionize calcium 1.14. Calcium and vit d were ordered. Potassium 4.2. 09/27 Patient does not have any medical complaints. Late yesterday afternoon he dressed up and wanted to leave. After explanation and education, he stayed. Today he wanted to leave for home. He has agitation at times. We feel pt may not have capacity to make medical decision. With his permission, talked to . He agreed to stay after talked to him. His BG around 250. D10 was discontinued. Lantus 5 units was started. updated: In this afternoon, I was reported that pt pulled out his BERNABE and wanted to go home. Both RN and I explained to pt the benefits to stay and risks to leave. I called and explained to her. called pt who eventually decided to stay. At about 9pm tonight I was reported that pt left and came here to [facility]. Discharge diagnosis: Acute CVA - Time Spent with Patient Total time spent providing and/or coordinating discharge services: Less than 30 minutes Medical - DS: Exam - Constitutional Vitals: Vital Signs Temp Pulse Resp BP Pulse Ox 09/28/19 19:14 96.9 F L 88 24 H 123/90 98 09/28/19 16:00 97.3 F 90 24 H 130/78 100 09/28/19 11:36 98.1 F 92 H 24 H 118/89 98 09/28/19 07:13 96.9 F L 92 H 22 132/89 100 09/28/19 03:14 97.8 F 94 H 20 149/85 100 09/27/19 23:02 97.6 F 90 14 120/78 99 Intake and Output 09/28/19 09/28/19 09/29/19 13:59 21:59 05:59 Intake Total 1659 240 Output Total 200 Balance 1459 240 Intake: IV 284 Dextrose 10%-Water IV Solution 284 1,000 ml @ 75 mls/hr IV . [id number] Rx#:[id number] Oral 1375 240 Output: Void Amount 200 Other: Meal Breakfast Lunch Percent of Meal Consumed 100% 75% Feeding Ability Independent Independent Urine Appearance Clear Clear Urine Color Dark Yellow Dark Yellow Urine Odor Normal Normal # Voids 1 # Bowel Movements 1 Medical - DS: Data Labs on day of discharge: Labs from last 24 hours 09/28/19 09/28/19 04:52 04:52 WBC 7.2 RBC 5.00 Hgb 15.3 Hct 47.1 MCV 94.2 MCH 30.6 MCHC 32.5 RDW 15.9 H Plt Count 168 MPV 10.8 H Gran % 63.9 Lymph % (Auto) 19.7 [place] % (Auto) 13.0 H Eos % (Auto) 2.8 Baso % (Auto) 0.6 Gran # 4.59 Lymph # (Auto) 1.41 L [place] # (Auto) 0.93 H Eos # (Auto) 0.20 Baso # (Auto) 0.04 Sodium 134 Potassium 4.1 Chloride 102 Carbon Dioxide 19 L Anion Gap 13.0 BUN 23 H Creatinine 1.1 GFR Calculation 77 Glucose 173 H Calcium 8.6 Total Bilirubin 1.8 H AST 28 ALT 20 Alkaline Phosphatase 63 Total Protein 6.1 Albumin 3.4 Globulin 2.7 Albumin/Globulin Ratio 1.3 Medical - DS: A/P - Patient/Caregiver Discharge Instructions Diet: Dysphagia Level 7 Easy to Chew Foods Additional Instructions: A referral has been sent to Dr. Barahona who will contact you regarding a sleep study. - Follow up Plan Disposition: Left Against Medical Advice Care Plan Goals: This discharge packet is provided to you to help keep you informed about your care. We want to ensure you get everything you need when you go home. You will also be receiving a call from us in a few days to follow up with you and see how you are doing since your discharge. This gives us a chance to listen to any concerns you maybe experiencing since you were discharged or any additional need s you may have, as well as providing us feedback on your care experience. We strive to always provide excellent care and thank you for your feedback and for choosing [facility]. Prognosis: Serious Rehab Potential: Critical
[2019-09-29] MEDS ORDERED: NICOTINE 14 MG PATCH TOPICAL SCH (10:00)
== END 2019-09-28 20:55 | disposition left against medical advice (07) | DRG 64 ==
LOC: ED 07:43 → ICU 15:25
PROVIDERS: ADMIT Internal Medicine; ATTEND Internal Medicine